=== PATIENT | female | born 1950 | race Caucasian/White ===

== ENCOUNTER → 2018-04-05 12:52 | Outpatient (POV) | payer MEDICARE, BC, SELFPAY | PROVIDERS: Family Provider Family Medicine; Visit Provider Dermatology | DX: Z00.00 Encounter for general adult medical examination without abnormal findings (principal) ==

== ENCOUNTER → 2018-04-20 15:32 | Outpatient (CLI) | payer MEDICARE, BC, SELFPAY ==
--- NOTE | 2018-04-20 15:36 | MR_ITS ---
MR lumbar spine wo con, MR 3-d myelogram/MRCP HISTORY: Low back pain with bilateral leg pain ITS.REASON: LOW BACK PAIN ORDERING PHYSICIAN: Emma Haynes PATIENT AGE: 67 years Comparison: None TECHNIQUE: Standard multiplanar multiecho sequences are performed without contrast. 3-D MIP and myelographic images are also rendered and reviewed FINDINGS: There is moderate lumbar scoliosis convex right measuring 32 degrees by the Kahn technique with a rotary component of the scoliosis. There is multilevel degenerative disc disease. T11-T12 and T12-L1 are unremarkable. L1-L2: Degenerative disc disease with mild concentric bulging disc with a small left paracentral and foraminal disc protrusion along with left-sided facet ligamentum flavum hypertrophy with resultant moderate to severe left-sided foraminal narrowing. There is moderate left lateral recess narrowing. L2-L3: Degenerative disc disease with bulging disc and prominent left sided marginal osteophytes. There is facet and ligamentum flavum hypertrophy. The bulging disc is eccentric toward the left with severe left-sided lateral recess and foraminal narrowing. L3-L4: Degenerative disc disease with disc desiccation. There is severe facet and ligamentum flavum hypertrophy with bulging disc. There is canal stenosis and severe bilateral lateral recess with moderate right and severe left foraminal narrowing. There is 5 mm right lateral translation of L3 on L4. Type I endplate changes are present at this level. There are endplate osteophytes as well L4-5: Concentric bulging disc with facet and ligamentum hypertrophy with severe right-sided foraminal narrowing and moderate right-sided lateral recess narrowing. There is transverse canal stenosis. The bulging disc is eccentric towards the right. L5-S1: Degenerative disc disease with moderate facet and ligamentum flavum hypertrophy with moderate right lateral recess and foraminal narrowing.. Incidental note made of bilateral renal cysts IMPRESSION: Abnormal MRI of the lumbar spine with severe spondylosis. There is moderate lumbar scoliosis convex right with multilevel degenerative disc disease, bulging disc, and facet and ligamentum flavum hypertrophy with canal stenosis foraminal narrowing and lateral recess narrowing. Please see above for detailed description at each level
== END ==
PROVIDERS: PCP Family Medicine; Visit Provider Nurse Practitioner Women's Health
DX: M54.5 Low back pain (principal)
CPT/HCPCS: 72148; 76376

== ENCOUNTER → 2018-05-13 08:28 | Outpatient (CLI) | payer MEDICARE, BC, SELFPAY ==
[2018-05-13 09:02] LABS: Creatinine,Urine Random 132 mg/dL (20-320)
[2018-05-13 10:00] LABS: Hemoglobin A1C 6.5 % (0.0-7.0)
[2018-05-13 10:27] LABS: Chol/HDL Ratio 3.5 (1-3.5); Cholesterol 189 mg/dL (140-200); HDL Cholesterol 54 mg/dL (29-89); LDL Cholesterol 103 mg/dL (0-130); Triglycerides 159 mg/dL (30-200); VLDL Cholesterol 32 mg/dL (0-40)
[2018-05-13 10:33] LABS: Alanine Aminotransferase 36 U/L (12-78); Albumin Level 3.5 gm/dL (3.4-5.0); Alkaline Phosphatase 87 U/L (46-116); Anion Gap 13.2 mEq/L (5-15); Aspartate Amino Transferase 17 U/L (15-37); Bilirubin,Total 0.4 mg/dL (0.2-1.0); Blood Urea Nitrogen 12 mg/dL (7-18); Calcium 8.8 mg/dL (8.5-10.1); Carbon Dioxide 30 mmol/L (21.0-32.0); Chloride 103 mmol/L (98-107); Creatinine,Serum 0.78 mg/dL (0.55-1.02); Estimated Glomerular Filt Rate 73 ml/min (>60); GFR (African American) 89 ML/MIN (>60); Globulin 3.5 gm/dl (1.3-3.2); Glucose 95 mg/dL (74-106); Potassium 4.2 mmoL/L (3.5-5.1); Sodium 142 mmol/L (136-145)
[2018-05-16 09:35] LABS: Microalbumin, Urine 13.7 ug/mL (Not Estab.)
== END ==
PROVIDERS: PCP Family Medicine; Visit Provider Family Medicine
DX: R73.01 Impaired fasting glucose (principal); E78.5 Hyperlipidemia, unspecified; I10 Essential (primary) hypertension
CPT/HCPCS: 36415; 80053; 80061; 82043; 82570; 83036; 84443

== ENCOUNTER → 2018-08-15 07:58 | Outpatient (POV) | payer MEDICARE, BC, SELFPAY | PROVIDERS: Visit Provider Specialist | DX: R20.0 Anesthesia of skin (principal); R20.2 Paresthesia of skin; G62.9 Polyneuropathy, unspecified | CPT/HCPCS: 95886; 95911 ==

== ENCOUNTER → 2018-08-23 09:03 | Outpatient (POV) | payer MEDICARE, BC, SELFPAY | PROVIDERS: Visit Provider Dermatology | DX: Z00.00 Encounter for general adult medical examination without abnormal findings (principal) ==

== ENCOUNTER 2018-09-23 14:00 | Outpatient (RCR) | payer MEDICARE, BC, SELFPAY | END 2018-09-23 14:05 | disposition home or self-care (01) | LOC: PT 14:00 | PROVIDERS: Visit Provider Neurological Surgery | DX: M96.1 Postlaminectomy syndrome, not elsewhere classified (principal) | CPT/HCPCS: 97010; 97014; 97110; 97163; G0283 ==

== ENCOUNTER → 2019-11-08 10:46 | Outpatient (CLI) | payer MEDICARE, BC, SELFPAY ==
--- NOTE | 2019-11-08 11:04 | CA_ITS ---
APPROVED REPORT EXAM: Comprehensive 2D, Doppler, and color-flow Echocardiogram Expense Analyst: Melanie Diallo RDCS Ht: 5 ft 7 in Wt: 236lbs BSA: 2.17 BP: 139/80 mmHg Indications: SOA 2D Dimensions LVOT 2.05 cm (M/F) 1.5-2.5 M-Mode Dimensions RVDd 2.17 cm (0.9-2.6) LVDd 4.62 cm (3.5-5.7) LVDs 3.17 cm (3.5-5.7) IVSd 0.76 cm (0.6-1.1) PWd 0.80 cm (0.6-1.1) EF (Teich) 59.30% FS 31.40% EDV (Teich) 98.30 mL ESV (Teich) 40.00 mL LV Diastology E/A Ratio 0.79 Mitral Valve MV A Velocity 61.00 (40-130 cm/s) Left Ventricle Left atrium is mildly enlarged, left ventricle is normal size, mild concentric left ventricular hypertrophy, visually estimated ejection fraction 55% with no regional wall motion abnormality, grade 1 diastolic dysfunction seen without tissue Doppler evidence of raise left atrial pressure. Right Ventricle Right atrium and right ventricular normal size and contractility. Aortic Valve Aortic valve is minimally thickened and fibrosed. There is no aortic stenosis or aortic insufficiency. Mitral Valve Mitral valve is grossly normal, there is mild mitral regurgitation. Tricuspid Valve Respite valve is grossly normal, there is mild tricuspid regurgitation, tricuspid regurgitation jet velocity is inadequate for calculation of the right ventricular systolic pressure. Pulmonic Valve Pulmonic valve is poorly visualized. Great Vessels Aortic root is normal size. Pericardium No significant pericardial effusion noted. Conclusion 1. Mildly enlarged left atrium, normal left ventricular size, mild concentric left ventricular hypertrophy, visually estimated ejection fraction 55% with no regional wall motion abnormality, grade 1 diastolic dysfunction seen without tissue Doppler evidence of raise left atrial pressure. 2. Mild mitral and tricuspid regurgitation. 3. No significant pericardial effusion noted. Electronically signed by : Brooks Laughlin, 11/09/2019 16:07:11
== END ==
PROVIDERS: Visit Provider Family Medicine
DX: R06.02 Shortness of breath (principal)
CPT/HCPCS: 93306

== ENCOUNTER → 2019-11-16 13:29 | Outpatient (CLI) | payer MEDICARE, BC, SELFPAY ==
[2019-11-16 14:26] LABS: Basophils % 0.1 % (0.1-2.0); Eosinophils # 0.1 K/mm3 (0.0-0.4); Eosinophils % 2.1 % (0.1-12.0); Hematocrit 39.8 % (37.0-47.0); Hemoglobin 13.3 g/dL (12.2-16.2); Lymphocytes # 1.6 K/mm3 (0.7-4.5); Lymphocytes % 29.2 % (10-50); Mean Corpuscular HGB Conc 33.4 g/dL (31.8-35.4); Mean Corpuscular Volume 86.9 fl (81-99); Mean Platelet Volume 7.6 fl (7.4-10.4); Monocytes # 0.2 K/mm3 (0.1-1.0); Monocytes % 4.5 % (1.7-9.3); Neutrophils # 3.5 K/mm3 (1.8-7.8); Platelet Count 159 K/mm3 (142-424); Red Blood Count 4.58 M/mm3 (4.20-5.40); Red Cell Distribution Width 14.3 % (11.5-17.5); White Blood Count 5.4 K/mm3 (4.8-10.8)
[2019-11-16 15:48] LABS: Alanine Aminotransferase 24 U/L (12-78); Albumin Level 4.3 g/dl (3.5-5.0); Albumin/Globulin Ratio 1.5 (1.1-1.8); Alkaline Phosphatase 71 U/L (38-126); Aspartate Amino Transferase 34 U/L (14-36); Bilirubin,Total 0.3 mg/dl (0.2-1.3); Blood Urea Nitrogen 16 mg/dl (7-17); Calcium 9.5 mg/dl (8.4-10.2); Carbon Dioxide 29 mmol/L (22.0-30.0); Chloride 103 mmol/L (98-107); Estimated Glomerular Filt Rate 83 ml/min (>60); GFR (African American) 100 ML/MIN (>60); Globulin 2.8 g/dL (1.3-3.2); Glucose 122 mg/dl (74-100); Sodium 138 mmol/L (136-145); Total Protein,Serum 7.1 g/dl (6.3-8.2)
== END ==
PROVIDERS: Visit Provider Internal Medicine Rheumatology
DX: M17.9 Osteoarthritis of knee, unspecified (principal); M19.049 Primary osteoarthritis, unspecified hand; Z79.1 Long term (current) use of non-steroidal anti-inflammatories (NSAID)
CPT/HCPCS: 36415; 80053; 85025

== ENCOUNTER → 2019-12-13 13:09 | Outpatient (CLI) | payer MEDICARE, BC, SELFPAY ==
[2019-12-13 14:42] LABS: Chloride 102 mmol/L (98-107); Potassium 4.6 mmoL/L (3.5-5.1); Sodium 138 mmol/L (136-145)
[2019-12-13 14:45] LABS: Anion Gap 11.6 mEq/L (5-15); Blood Urea Nitrogen 20 mg/dl (7-17); Carbon Dioxide 29 mmol/L (22.0-30.0); Estimated Glomerular Filt Rate 83 ml/min (>60); GFR (African American) 100 ML/MIN (>60)
[2019-12-13 14:46] LABS: Calcium 9.2 mg/dl (8.4-10.2); Glucose 91 mg/dl (74-100)
== END ==
PROVIDERS: Visit Provider Family Medicine
DX: I10 Essential (primary) hypertension (principal)
CPT/HCPCS: 36415; 80048

== ENCOUNTER → 2020-06-18 11:29 | Outpatient (CLI) | payer MEDICARE, BC, SELFPAY ==
--- NOTE | 2020-06-18 11:41 | XR_ITS ---
PROCEDURE: XR LUMBAR SPINE 6V W BENDING CLINICAL INDICATION: LUMBAR STENOSIS W/ NEUROGENIC CLAUDATION COMPARISON: No exams were available for comparison FINDINGS: There is severe lumbar scoliosis convex right measuring 30 degrees. Multilevel degenerative disc disease is present at L1-L2 L2-L3 L3-L4 L4-5 and L5-S1. Prominent osteophytes are present on the left at L2 and L3. No acute fracture or dislocation. No lytic or blastic change. No abnormal subluxation in flexion or extension. IMPRESSION: Severe dextro lumbar scoliosis with multilevel degenerative disc disease Dictated by: Francis Rutledge MD 06/18/2020 18:06 Francis Rutledge MD in [place] 06/18/2020 18:06
== END ==
PROVIDERS: PCP Neurological Surgery; Visit Provider Family Medicine
DX: M48.062 Spinal stenosis, lumbar region with neurogenic claudication (principal)
CPT/HCPCS: 72114

== ENCOUNTER 2020-08-09 09:00 | Outpatient (RCR) | payer MEDICARE, BC, SELFPAY | END 2020-08-09 09:05 | disposition home or self-care (01) | LOC: PT 09:00 | PROVIDERS: Visit Provider Physician Assistant | DX: M48.062 Spinal stenosis, lumbar region with neurogenic claudication (principal) | CPT/HCPCS: 97010; 97014; 97035; 97110; 97112; 97163; 97164; G0283 ==

== ENCOUNTER → 2020-09-12 13:33 | Outpatient (CLI) | payer MEDICARE, BC, SELFPAY ==
[2020-09-12 14:33] LABS: Basophils % 0.2 % (0.1-2.0); Eosinophils # 0.1 K/mm3 (0.0-0.4); Hematocrit 39.6 % (37.0-47.0); Hemoglobin 13.1 g/dL (12.2-16.2); Lymphocytes # 1.6 K/mm3 (0.7-4.5); Lymphocytes % 26.1 % (10-50); Mean Corpuscular Hemoglobin 28.5 pg (27.0-31.2); Mean Corpuscular Volume 86.4 fl (81-99); Mean Platelet Volume 7.6 fl (7.4-10.4); Monocytes # 0.4 K/mm3 (0.1-1.0); Monocytes % 5.8 % (1.7-9.3); Neutrophils # 4.1 K/mm3 (1.8-7.8); Neutrophils % 66.9 % (37.0-80.0); Platelet Count 183 K/mm3 (142-424); Red Blood Count 4.58 M/mm3 (4.20-5.40); White Blood Count 6.2 K/mm3 (4.8-10.8)
== END ==
PROVIDERS: PCP Family Medicine; Visit Provider Family Medicine
DX: Z20.822 Contact with and (suspected) exposure to COVID-19 (principal); I10 Essential (primary) hypertension
CPT/HCPCS: 36415; 85025; U0003

== ENCOUNTER 2020-12-30 09:44 | Emergency (ER) | payer MEDICARE, BC, SELFPAY ==
[2020-12-30 09:45] VITALS: BP 144/77; PULSE 89; RESP 20; TEMP 36.6; O2SAT 96; BMI 38.9
--- NOTE | 2020-12-30 09:46 | XR_ITS ---
PROCEDURE: XR SHOULDER LT MIN 2V CLINICAL INDICATION: PAIN COMPARISON: No exams were available for comparison FINDINGS: No acute fractures or dislocations. Bone density is normal. Degenerative changes of the glenohumeral and acromioclavicular joints. No periarticular calcification. Postsurgical changes with surgical clips in the left axilla. Soft tissues are otherwise unremarkable. Calcified lymph nodes noted in the hilum. Visualized left hemithorax is otherwise unremarkable. IMPRESSION: No acute findings. Degenerative changes noted. Dictated by: Rina Urbina 12/30/2020 10:20 Rina Urbina in [facility] 12/30/2020 10:20
--- NOTE | 2020-12-30 10:13 | HMH.EDUTC ---
[facility] [place] Disposition Clinical Impression: Muscle strain Disposition: Home, Self-Care Condition on Discharge: Good Instructions: Muscle Strain, DI for Shoulder Pain Additional Instructions: *Ibuprofen dasha 6 hours with meal as needed for pain/inflammation *Not additional anti-inflammatory like motrin, aleve, advil with the above amount of ibuprofen. You can still take Tylenol every 4 hours as needed if you need something else for pain *Ice 20 minutes every 2 hours for the first 48 hours after the initial injury followed by moist heat every 20 minutes 3-4 times a day to affected area *Elevate when resting *Keep this area active, no movement leads to more stiffness, However take it easy and avoid heavy lifting pushing or pulling *Follow up with you family doctor if no improvement for further treatment Referrals: Jose Manuel Garrido MD [Primary Care Provider] - As needed Time of Disposition: 10:36 Medical Decision Making - Karl Inquiry Pt receiving controlled substance: No Karl was queried for this patient: No Vital Signs: 12/30/20 09:45 12/30/20 10:29 Temperature 97.8 F 97.8 F Temperature Source Oral Pulse Rate 89 Pulse Rate [Right Brachial] 89 Respiratory Rate 20 20 Blood Pressure 144/77 H Blood Pressure [Right Arm] 144/77 H Blood Pressure Mean [Right Arm] 99 Blood Pressure Source [Right Arm] Automatic Cuff Blood Pressure Position [Right Arm] Sitting 02 Sat by Pulse Oximetry 96 Oxygen Delivery Method Room Air - Radiology Data #1 Image(s): Shoulder Image Reviewed: Yes I have reviewed radiologist's interpretation No acute findings. Degenerative changes noted. [facility] [place] HPI - General Stated complaint: ao 9 injury to lt shoulder Time Seen by Provider: 12/30/20 10:13 Mode of Arrival: Ambulatory Source of Information: Patient Limitations: No Limitations Description of Symptoms (Recalled from Triage Doc. by RN): PATIENT C/O PAIN TO LEFT SHOULDER AFTER CARRYING AROUND A METAL SHELF 10 DAYS AGO HEENT Symptoms (Recalled from RN notes): No Resp Symptoms (Recalled from RN notes): No Skin Symptoms (Recalled from RN notes): No MS Symptoms (Recalled from RN notes): Yes Functional Status (Recalled from RN notes): WNL - History of Present Illness Provider Complaint: Patient states that she carried a metal shelf from her basement to her building about 10 days ago and has been having pain in her left shoulder when she moves it or tries to raise it State that she thought it would be better by now but it is not so she came in to get it checked States that when she holds the arm still she has no pain but with movement has pain in the shoulder down into her upper arm and thinks she messed it up - Related Data Home Medications Medication Instructions Recorded Confirmed atenolol 25 mg tablet 25 mg PO DAILY 90 Days #90 tab 07/04/18 12/30/20 lansoprazole 30 mg capsule,delayed 30 mg PO DAILY 90 Days #90 cap 07/04/18 12/30/20 release montelukast 10 mg tablet 10 mg PO DAILY 30 Days #30 tab 07/04/18 12/30/20 sertraline 100 mg tablet 100 mg PO DAILY 90 Days #180 tab 07/04/18 12/30/20 simvastatin 20 mg tablet 20 mg PO HS 90 Days #90 tab 07/04/18 12/30/20 Gabapentin [Neurontin 800mg Tab] 800 mg PO TID 12/30/20 12/30/20 Lisinopril/Hydrochlorothiazide 1 tab PO DAILY 12/30/20 12/30/20 [Zestoretic 10/12.5mg tablet] Allergies Allergy/AdvReac Type Severity Reaction Status Date / Time No Known Drug Allergies Allergy Unknown Verified 12/30/20 10:09 - Worker's Comp Is this a Worker's Comp case?: No [facility] History - Hepatitis A Screen Drug use history?: No High risk sexual behaviors?: No History of sexually transmitted infection?: No Currently employed?: No Childcare worker?: No Do you have indoor plumbing?: Yes Do you have electricity?: Yes Attestation statement:: This patient has been screened for Hepatitis A risk factors. I have reviewed the patient's past medical history: Yes Medical History: Cayla
[2020-12-30 10:29] VITALS: BP 144/77; PULSE 89; RESP 20; TEMP 36.6; O2SAT 96
== END 2020-12-30 10:45 | disposition home or self-care (01) ==
PROVIDERS: Emergency Provider Nurse Practitioner; PCP Family Medicine
DX: S43.402A Unspecified sprain of left shoulder joint, initial encounter (principal); X50.0XXA Overexertion from strenuous movement or load, initial encounter; Y92.019 Unspecified place in single-family (private) house as the place of occurrence of the external cause
CPT/HCPCS: G0463; 73030; 99202

== ENCOUNTER → 2021-05-15 08:17 | Outpatient (CLI) | payer MEDICARE, BC, SELFPAY ==
[2021-05-15 09:08] LABS: Basophils % 0.5 % (0.1-2.0); Eosinophils # 0.1 K/mm3 (0.0-0.4); Eosinophils % 1.9 % (0.1-12.0); Hematocrit 40.5 % (37.0-47.0); Hemoglobin 13.6 g/dL (12.2-16.2); Lymphocytes # 1.6 K/mm3 (0.7-4.5); Mean Corpuscular HGB Conc 33.6 g/dL (31.8-35.4); Mean Corpuscular Hemoglobin 29.2 pg (27.0-31.2); Mean Corpuscular Volume 86.8 fl (81-99); Mean Platelet Volume 7.9 fl (7.4-10.4); Monocytes # 0.3 K/mm3 (0.1-1.0); Monocytes % 5.4 % (1.7-9.3); Neutrophils # 3.8 K/mm3 (1.8-7.8); Neutrophils % 65.2 % (37.0-80.0); Platelet Count 205 K/mm3 (142-424); Red Blood Count 4.67 M/mm3 (4.20-5.40); Red Cell Distribution Width 13.9 % (11.5-17.5); White Blood Count 5.9 K/mm3 (4.8-10.8)
[2021-05-15 09:51] LABS: Alanine Aminotransferase 28 U/L (12-78); Albumin Level 4.1 g/dl (3.5-5.0); Albumin/Globulin Ratio 1.6 (1.1-1.8); Alkaline Phosphatase 70 U/L (38-126); Anion Gap 7.4 mEq/L (5-15); Aspartate Amino Transferase 47 U/L (14-36); Bilirubin,Total 0.2 mg/dl (0.2-1.3); Blood Urea Nitrogen 18 mg/dl (7-17); Calcium 9.8 mg/dl (8.4-10.2); Carbon Dioxide 35 mmol/L (22.0-30.0); Chloride 100 mmol/L (98-107); Estimated Glomerular Filt Rate 62 ml/min (>60); GFR (African American) 75 ML/MIN (>60); Globulin 2.6 g/dL (1.3-3.2); Glucose 170 mg/dl (74-100); Potassium 4.4 mmoL/L (3.5-5.1); Sodium 138 mmol/L (136-145); Total Protein,Serum 6.7 g/dl (6.3-8.2)
== END ==
PROVIDERS: Visit Provider Nurse Practitioner Women's Health
DX: G56.00 Carpal tunnel syndrome, unspecified upper limb (principal); M17.9 Osteoarthritis of knee, unspecified; M19.049 Primary osteoarthritis, unspecified hand; M54.9 Dorsalgia, unspecified; M70.60 Trochanteric bursitis, unspecified hip
CPT/HCPCS: 36415; 80053; 85025

== ENCOUNTER 2021-10-06 08:00 | Outpatient (RCR) | payer MEDICARE, BC, SELFPAY ==
--- NOTE | 2021-09-24 09:17 | HMH.PTOPEV ---
PT Outpatient Evaluation Rehab PT Outpatient Evaluation Start: 09/24/21 08:01 Freq: Status: Active Protocol: Document 09/24/21 08:02 VEEROCÍO (Rec: 09/24/21 09:17 CAMERON [id number]) Electronically Signed By Christopher Venegas PT 09/24/21 08:02 Outpatient Therapy Subjective History Subjective History This is the initial Physical Therapy vestibular evaluation for Cynthia Harding. Pt is a 71 y/o female referred to PT for c/o dizziness . Pt reports insidious onset of dizziness ~ 3 weeks ago. Pt reports the worst time is getting out of bed in the morning, she states that sitting up from supine causes room spinning symptoms. Pt did state that recently while lying in bed she rolled onto her right and had the same symptoms. Pt reports always in the morning, before she takes her medicine. Pt does report she has had ringing in my ears her whole life. Chief Complaint Other Symptom Type Other Symptoms Relieved By Rest/Positioning Symptoms Aggravated By Prone,Sitting Prior Functional Limitations None Current Functional Limitations Driving,Sleeping,Recreation Activity Symptom Description Intermittent Balance Eval Subjective Hx of Complaint Comment dizziness with supine/sit Chief Complaint vertigo Yes Did you feel dizzy, unsteady or faint? Yes Activity at onset transfers Prior Functional Limitations Prior Functional [place] Level none Current Functional Limitations Comment transfers Hx of Falls Hx Falls No Gait/Posture Asssessment General Gait Observation No Deviations/Normal Assistive Devices None / NA Level of Transfer Assist Independent Nystagmus Nystagmus Presence Positional Nystagmus Description Right Direction,Geotropic, Latency - Immediate Outpatient Therapy Assessment Impairments Problems/Impairmments Impaired Sitting,Impaired Recreational Activities, Impaired Work Activities, Impaired Balance,Impaired Self Care/Self Management
== END 2021-10-06 08:05 | disposition home or self-care (01) ==
LOC: PT 08:00
PROVIDERS: PCP Family Medicine; Visit Provider Family Medicine
DX: H81.90 Unspecified disorder of vestibular function, unspecified ear (principal)
CPT/HCPCS: 97110; 97163

== ENCOUNTER 2021-11-18 10:00 | Outpatient (RCR) | payer MEDICARE, BC, SELFPAY | END 2021-11-18 10:05 | disposition home or self-care (01) | LOC: PT 10:00 | PROVIDERS: PCP Family Medicine; Visit Provider Physician Assistant Surgical | DX: M54.50 Low back pain, unspecified (principal); G89.29 Other chronic pain; M51.36 Other intervertebral disc degeneration, lumbar region; M41.125 Adolescent idiopathic scoliosis, thoracolumbar region | CPT/HCPCS: 97010; 97014; 97110; 97163; G0283 ==

== ENCOUNTER 2021-12-14 11:17 | Emergency (ER) | payer MEDICARE, BC, SELFPAY ==
--- NOTE | 2021-12-14 11:51 | HMH.EDUTC ---
[facility] [place] Disposition Clinical Impression: COVID-19, Viral syndrome Asthma Qualifiers: Asthma severity: unspecified severity Asthma persistence: unspecified Asthma complication type: unspecified Qualified Code(s): J45.909 - Unspecified asthma, uncomplicated Disposition: Home, Self-Care Condition on Discharge: Good Instructions: DI for Asthma -- Adult, DI for COVID-19 (Suspected or Confirmed ), Preventing the Spread of Coronavirus Discharge Instructions Additional Instructions: Drink plenty of fluids. Take tylenol or ibuprofen for pain or fever. Take the medications as directed. Follow up with your regular doctor. GO TO THE ER FOR ANY WORSENING SYMPTOMS Quarantine until you know the results of your covid-19 test. Notify your school or workplace of your results and follow their instructions regarding return to work/school. The cough medication (promethazine dm) will make you drowsy, so don't drive or operate heavy machinery after taking it. Prescriptions: Promethazine/Dextromethorphan [Promethazine-Dm Syrup] 5 ml PO Q6HP PRN #240 ml PRN Reason: Cough Transmission Status: Received by [facility] Benzonatate [Benzonatate 100mg cap] 100 mg PO TIDP PRN #30 cap PRN Reason: Cough Transmission Status: Received by [facility] methylPREDNISolone [Medrol] 4 mg PO DIRECTED 6 Days #21 packet Transmission Status: Received by [facility] Azithromycin [Z-Javi 250mg Tab*] 250 mg PO UD DOSE PK #6 tab Transmission Status: Received by [facility] Referrals: Jose Manuel Garrido MD [Primary Care Provider] - Time of Disposition: 12:10 Medical Decision Making - Medical Records Medical records reviewed: No: I reviewed the patient's medical records. - Karl Inquiry Pt receiving controlled substance: No Vital Signs: 12/14/21 12:00 12/14/21 12:12 Temperature 99.1 F 99.1 F Temperature Source Oral Pulse Rate 85 Pulse Rate [Left] 85 Respiratory Rate 16 16 Blood Pressure 137/77 Blood Pressure [Right Arm] 137/77 Blood Pressure Mean [Right Arm] 97 02 Sat by Pulse Oximetry 95 [facility] [place] [place] HPI - General Stated complaint: covid test Time Seen by Provider: 12/14/21 11:51 - History of Present Illness Provider Complaint: She is here to be tested for covid-19. She started feeling bad about 4 days ago. She denies any shortness of breath, but she does have a dry cough - Related Data Home Medications Medication Instructions Recorded Confirmed atenolol 25 mg tablet 25 mg PO DAILY 90 Days #90 tab 07/04/18 12/30/20 lansoprazole 30 mg capsule,delayed 30 mg PO DAILY 90 Days #90 cap 07/04/18 12/30/20 release montelukast 10 mg tablet 10 mg PO DAILY 30 Days #30 tab 07/04/18 12/30/20 sertraline 100 mg tablet 100 mg PO DAILY 90 Days #180 tab 07/04/18 12/30/20 simvastatin 20 mg tablet 20 mg PO HS 90 Days #90 tab 07/04/18 12/30/20 Gabapentin [Neurontin 800mg Tab] 800 mg PO TID 12/30/20 12/30/20 Lisinopril/Hydrochlorothiazide 1 tab PO DAILY 12/30/20 12/30/20 [Zestoretic 10/12.5mg tablet] Previous Rx's Medication Instructions Recorded Azithromycin [Z-Javi 250mg Tab*] 250 mg PO UD DOSE PK #6 tab 12/14/21 Benzonatate [Benzonatate 100mg 100 mg PO TIDP PRN #30 cap 12/14/21 cap] Promethazine/Dextromethorphan 5 ml PO Q6HP PRN #240 ml 12/14/21 [Promethazine-Dm Syrup] methylPREDNISolone [Medrol] 4 mg PO DIRECTED 6 Days #21 12/14/21 packet Allergies Allergy/AdvReac Type Severity Reaction Status Date / Time No Known Drug Allergies Allergy Unknown Verified 12/14/21 12:03 [facility] History - Hepatitis A Screen Attestation statement:: This patient has been screened for Hepatitis A risk factors. I have reviewed the patient's past medical history: Yes Medical History: Reports:: Anxiety, Cancer (Right and Left Breast ), Depression, Gastroesophageal Reflux Disease(GERD), Hyperlipidemia, Hypertension, Pulmonary Embolism (15 Years ago ) Other Medical History: Reports: A
[2021-12-14 12:00] VITALS: BP 137/77; PULSE 85; RESP 16; TEMP 37.3; O2SAT 95; BMI 37.4
[2021-12-14 12:12] VITALS: BP 137/77; PULSE 85; RESP 16; TEMP 37.3
== END 2021-12-14 12:12 | disposition home or self-care (01) ==
PROVIDERS: Emergency Provider Nurse Practitioner Family; PCP Family Medicine
DX: U07.1 COVID-19 (principal); J45.909 Unspecified asthma, uncomplicated; R05.9 Cough, unspecified
CPT/HCPCS: 99212; C9803; G0463; U0003; U0005

== ENCOUNTER 2022-04-22 22:45 | Emergency (ER) | payer MEDICARE, BC, SELFPAY ==
[2022-04-22 22:46] VITALS: BP 145/67; PULSE 75; RESP 16; TEMP 37.2; O2SAT 95; BMI 33.8
[2022-04-22 23:24] LABS: Basophils # 0.1 K/mm3 (0-0.2); Basophils % 0.6 % (0.1-2.0); Eosinophils # 0.1 K/mm3 (0.0-0.4); Eosinophils % 0.6 % (0.1-12.0); Hematocrit 47.1 % (37.0-47.0); Hemoglobin 15.3 g/dL (12.2-16.2); Lymphocytes # 1.2 K/mm3 (0.7-4.5); Lymphocytes % 8.7 % (10-50); Mean Corpuscular HGB Conc 32.5 g/dL (31.8-35.4); Mean Corpuscular Hemoglobin 28.7 pg (27.0-31.2); Mean Corpuscular Volume 88.3 fl (81-99); Mean Platelet Volume 8.1 fl (7.4-10.4); Monocytes # 0.3 K/mm3 (0.1-1.0); Monocytes % 2.1 % (1.7-9.3); Neutrophils # 11.9 K/mm3 (1.8-7.8); Neutrophils % 88.1 % (37.0-80.0); Platelet Count 208 K/mm3 (142-424); Red Blood Count 5.33 M/mm3 (4.20-5.40); Red Cell Distribution Width 13.6 % (11.5-17.5); White Blood Count 13.6 K/mm3 (4.8-10.8)
--- NOTE | 2022-04-22 23:24 | HMH.EDABDPAI ---
Discharge Plan Disposition Patient Disposition: Home, Self-Care Chief Complaint: Abdominal Pain Prescriptions Prescriptions: No Action atenolol 25 mg tablet 25 mg PO DAILY 90 Days Qty: 90 simvastatin 20 mg tablet 20 mg PO HS 90 Days Qty: 90 sertraline 100 mg tablet 100 mg PO DAILY 90 Days Qty: 180 lansoprazole 30 mg capsule,delayed release(DR/EC) 30 mg PO DAILY 90 Days Qty: 90 montelukast 10 mg tablet 10 mg PO DAILY 30 Days Qty: 30 lisinopril-hydrochlorothiazide 1 EACH tablet 1 tab PO DAILY gabapentin 800 MG tablet 800 mg PO TID promethazine-DM 120 ML syrup 5 ml PO Q6HP PRN (Reason: Cough) Qty: 240 0RF azithromycin 250 MG tablet 250 mg PO UD DOSE PK Qty: 6 0RF Rx Instructions: Take two (2) tablets today, then one (1) tablet days #2 thru #5 benzonatate 100 MG capsule 100 mg PO TIDP PRN (Reason: Cough) Qty: 30 0RF methylprednisolone 4 MG tablets,dose pack 4 mg PO DIRECTED 6 Days Qty: 21 0RF Referrals Follow up/Referrals: Jose Manuel aGrrido MD [Primary Care Provider] - See instructions Clinical Impressions Clinical Impression: Abdominal pain Instructions Patient Instructions: DI for Acute Abdominal Pain Discharge ED Provider: Thai Cuello Abdominal Pain HPI General Chief Complaint: Abdominal Pain Stated Complaint: sharp abdominal pain; vomiting Time Seen by Provider: 04/22/22 23:24 Mode of Arrival: Ambulatory Source of Information: Patient and Medical Record Limitations: No Limitations Description of Symptoms (Recalled from ER Triage Doc. by RN): pt states she has sharp abdominal pain that stated a few hours prior to arrival the pt states that she has a sharp pain in the middle of her abdomen that runs all across. the abdomen is hard and tender to the touch. the pt states that she had 2 bms today both solid with no relief. the pt has a hx of strangulated hernia. pt stated that she also has a spinal stimulator pt also states she has voomited 2 times in the past 2 hours. pt is requesting pain medicine History of Present Illness HPI narrative: acute onset of abd pain this afternoon - hx of spinal stimulator - hx of prev abd surg MD complaint: abdominal pain Onset (ago): hour(s) Consistency: intermittent Location: periumbilical Severity: moderate Quality: cramping Radiation: epigastric Associated symptoms: denies other symptoms Related Data Home Medications Medication Instructions Recorded Confirmed atenolol 25 mg tablet 25 mg PO DAILY Hypertension 90 07/04/18 12/30/20 days #90 tabs lansoprazole 30 mg capsule,delayed 30 mg PO DAILY Cholesterol 90 days 07/04/18 12/30/20 release #90 caps montelukast 10 mg tablet 10 mg PO DAILY Allergy symptoms 30 07/04/18 12/30/20 days #30 tabs sertraline 100 mg tablet 100 mg PO DAILY Depression 90 days 07/04/18 12/30/20 #180 tabs simvastatin 20 mg tablet 20 mg PO HS Cholesterol 90 days 07/04/18 12/30/20 #90 tabs gabapentin 800 mg tablet 800 mg PO TID NEUROPATHY 12/30/20 12/30/20 lisinopril 10 1 tab PO DAILY Hypertension 12/30/20 12/30/20 mg-hydrochlorothiazide 12.5 mg tablet Previous Rx's Medication Instructions Recorded azithromycin 250 mg tablet 250 mg PO UD DOSE PK #6 tabs 12/14/21 benzonatate 100 mg capsule 100 mg PO TIDP PRN Cough #30 caps 12/14/21 methylprednisolone 4 mg tablets in 4 mg PO DIRECTED 6 days #21 12/14/21 a dose pack packets promethazine-DM 6.25 mg-15 mg/5 mL 5 ml PO Q6HP PRN Cough #240 mL 12/14/21 oral syrup Allergies Allergy/AdvReac Type Severity Reaction Status Date / Time No Known Drug Allergies Allergy Unknown Verified 12/14/21 12:03 PFSH PFSH Social History Smoking Status: Former smoker alcohol intake: never current occupational status: other Travel in the last 8 weeks: None ROS Obtained: Yes All systems reviewed & no additional complaints except as documented Physical Exam General General appearance: [email or web address]
[2022-04-22 23:27] LABS: Chloride 95 mmol/L (98-107); MANUAL DIFFERENTIAL MANUAL DIFFERENTIAL (MANUAL DIFF); Potassium 3.4 mmoL/L (3.5-5.1); Sodium 142 mmol/L (136-145)
[2022-04-22 23:30] LABS: Alanine Aminotransferase 20 U/L (12-78); Alkaline Phosphatase 115 U/L (38-126); Amylase 71 U/L (30-110); Anion Gap 14.4 mEq/L (5-15); Aspartate Amino Transferase 34 U/L (14-36); Bilirubin,Total 0.5 mg/dl (0.2-1.3); Blood Urea Nitrogen 14 mg/dl (7-17); Carbon Dioxide 36 mmol/L (22.0-30.0); Creatinine Clearance Estimated 79 mL/min (50-200); Estimated Glomerular Filt Rate 82 ml/min (>60); GFR (African American) 100 ML/MIN (>60); Glucose 178 mg/dl (74-100); Lactic Acid 1.6 mmol/L (0.7-2.1)
[2022-04-22 23:31] LABS: Albumin Level 4.6 g/dl (3.5-5.0); Albumin/Globulin Ratio 1.6 (1.1-1.8); Globulin 2.9 g/dL (1.3-3.2); Lipase 179 U/L (23-300); Total Protein,Serum 7.5 g/dl (6.3-8.2)
--- NOTE | 2022-04-22 23:36 | CT_ITS ---
PROCEDURE INFORMATION: Exam: CT Abdomen And Pelvis With Contrast Exam date and time: 04/23/2022 12:48 AM Age: 71 years old Clinical indication: Abdominal pain; Prior surgery; Surgery type: Hernia repair, appendectomy, hysterectomy TECHNIQUE: Imaging protocol: Computed tomography of the abdomen and pelvis with contrast. Radiation optimization: All CT scans at this facility use at least one of these dose optimization techniques: automated exposure control; mA and/or kV adjustment per patient size (includes targeted exams where dose is matched to clinical indication); or iterative reconstruction. Contrast material: ISOVUE; Contrast volume: 75 ml; Contrast route: IV; COMPARISON: SPLUMBWO MR lumbar spine wo con 04/20/2018 3:44 PM FINDINGS: Tubes, catheters and devices: Dorsal column stimulator is evident. Lungs: There is a 3 mm right middle lobe nodule image 4 series 3. Liver: Mild hepatic steatosis is evident. Hepatic granulomata are noted. Gallbladder and bile ducts: Cholelithiasis is present without findings of cholecystitis. No gallbladder wall thickening or pericholecystic fluid collection. Pancreas: Normal. No ductal dilation. Spleen: Splenic granulomata are noted. Adrenal glands: Normal. No mass. Kidneys and ureters: There are 2 right intrarenal calculi. One in the upper pole measuring 2 x 7 mm and the other in the lower pole measuring 3 mm. There is no hydronephrosis. There are 6 mm and 17 mm right cortical hypodensities. The largest is compatible with a cyst. The smaller is too small to characterize but likely representing a cyst as well. Left kidney is normal. Stomach and bowel: Patent small bowel anastomosis is noted within the left mid abdomen. There is mild soft tissue stranding of the mesenteric fat medial to the anastomosis which may represent mild inflammation. There are nondilated fluid-filled loops of small bowel present. No obstruction. Appendix: No evidence of appendicitis. Intraperitoneal space: See Stomach and bowel finding. Vasculature: There is mild calcific atherosclerotic disease. There is no abdominal aortic aneurysm.The uterus is absent. Lymph nodes: Unremarkable. No enlarged lymph nodes. Urinary bladder: Unremarkable as visualized. Reproductive: See Vasculature finding. Bones/joints: Significant scoliosis and degenerative change of the lumbar spine. Soft tissues: Unremarkable. IMPRESSION: 1. Stranding of the mesenteric fat medial to small bowel anastomosis in the left mid abdomen. The anastomosis is patent. There are fluid-filled loops of small bowel present without dilation. The findings may represent enteritis. 2. Nonobstructing right intrarenal calculi and 2 small right renal hypodensities most consistent with cysts. 3. There is a 3 mm right middle lobe nodule image 4 series 3. 4. For patients at low risk (minimal or absent history of smoking and of other known risk factors), no routine follow-up is indicated. For patients at high risk (history of smoking or of other known risk factors), consider optional CT Chest at 12 months. (Reference: Winston) 5. Other findings as detailed COMMENTS: Consistent with the [employer]'s Incidental Findings Committee white paper (J Am Yoni Radiol 2018): Any incidental renal lesion less than 1 cm or classified as too small to characterize, or any incidental cystic renal lesion characterized as simple-appearing, is likely benign. No follow-up imaging is recommended for these lesions per consensus recommendations based on imaging criteria. REFERENCES: [place] Kruger, et al. Guidelines for Management of Incidental Pulmonary Nodules Detected on
[2022-04-22 23:50] LABS: Erythrocyte Sedimentation Rate 12 mm/hr (0-30)
[2022-04-23 00:24] LABS: Anisocytosis 1+; Hypochromasia 1+; Lymphocytes % 12 % (10-50); Monocytes % 2 % (2-9); Neutrophils % 86 % (42-76); Platelet Estimate Normal; Total Cells Counted 100
[2022-04-23 01:04] VITALS: BP 140/62; PULSE 72; RESP 18; TEMP 36.6; O2SAT 98
== END 2022-04-23 01:24 | disposition home or self-care (01) ==
PROVIDERS: Emergency Provider Emergency Medicine; PCP Family Medicine
DX: R10.9 Unspecified abdominal pain (principal); R11.10 Vomiting, unspecified
CPT/HCPCS: 74177; 80053; 82150; 83605; 83690; 85007; 85025; 85651; 86140; 96365; 96375; 99284; Q9967

== ENCOUNTER 2023-02-12 09:18 | Emergency (ER) | payer MEDICARE, BC, SELFPAY ==
[2023-02-12 09:18] VITALS: BP 138/64; PULSE 94; RESP 18; TEMP 36.3; O2SAT 95; BMI 35.2
--- NOTE | 2023-02-12 09:45 | EXP.UTC ---
Discharge Plan Disposition Patient Disposition: Home, Self-Care Condition: Good Prescriptions Prescriptions: New amoxicillin-pot clavulanate 875-125 mg Tablet 1 tab PO Q12H Qty: 14 0RF benzonatate 100 mg capsule 100 mg PO TID PRN (Reason: cough) Qty: 30 0RF methylprednisolone [Medrol (Javi)] 4 mg tablets,dose pack See Rx Instructions .Route .COMPLEX 6 Days Qty: 21 0RF Rx Instructions: taper pack; No Action atenolol 25 mg tablet 25 mg PO DAILY 90 Days Qty: 90 simvastatin 20 mg tablet 20 mg PO HS 90 Days Qty: 90 sertraline 100 mg tablet 100 mg PO DAILY 90 Days Qty: 180 lansoprazole 30 mg capsule,delayed release(DR/EC) 30 mg PO DAILY 90 Days Qty: 90 montelukast 10 mg tablet 10 mg PO DAILY 30 Days Qty: 30 lisinopril-hydrochlorothiazide 1 EACH tablet 1 tab PO DAILY gabapentin 800 MG tablet 800 mg PO TID promethazine-DM 120 ML syrup 5 ml PO Q6HP PRN (Reason: Cough) Qty: 240 0RF azithromycin 250 MG tablet 250 mg PO UD DOSE PK Qty: 6 0RF Rx Instructions: Take two (2) tablets today, then one (1) tablet days #2 thru #5 benzonatate 100 MG capsule 100 mg PO TIDP PRN (Reason: Cough) Qty: 30 0RF methylprednisolone 4 MG tablets,dose pack 4 mg PO DIRECTED 6 Days Qty: 21 0RF Referrals Follow up/Referrals: Jose Manuel Garrido MD [Primary Care Provider] - See instructions Activity Restrictions/Add. Instructions Additional Instructions/Restrictions: *Monitor Temp, Over the counter Motrin or Tylenol as directed/as needed Tylenol every 4 hours and Motrin every 6 hours (as long as your family doctor has told you that you can take it) for fever or pain. and straight to ER if unable to lower temp less than 101.0 after medication given *Warm salt water gargles may help to soothe the throat *Throat Lozenges? *Warm fluids like tea with honey may help to soothe the throat? *Sleep elevated *Humidifier/Vaporizer *Flonase 2 sprays in each nostril daily but be aware that it may take 2-3 days before you notice improvement *Bromfed may cause drowsiness. Know how it effects you (your child) before driving, caring for small child, or sending your child to school. Not other antihistamines/allergy medications while taking bromfed Your throat swab was sent for culture. Those results are typically sent to your primary care. Be sure to follow up in 2-3 days with your family doctor/primary care physician if no improvement so they can review those result and treat if necessary. If you don?t have a primary care doctor, I recommend you get one but in the mean time, you will have to return to a walk in clinic Follow up IMMEDIATELY for new or worsening symptoms or no Noticeable improvement over the next 48-72 hours. 911 for difficulty breathing or swallowing You were tested for today for COVID19 your test result should be back in the next 24-48 hours, you may check your results on the [facility] Health Portal they will be on there when they are complete Clinical Impressions Clinical Impression: Sinusitis Qualifiers: Sinusitis location: unspecified location Chronicity: unspecified Qualified Code(s): J32.9 - Chronic sinusitis, unspecified Instructions Patient Instructions: Sore Throat, DI for Sinusitis Discharge ED [place] Coty Zaragoza [facility] [place] General Stated complaint: chest congestion, cough, runny nose Mode of Arrival: Ambulatory Source of Information: Patient Limitations: No Limitations Time Seen by Provider: 02/12/23 09:45 Description of Symptoms (Recalled from Triage Doc. by RN): Patient reports shortness of air, face pain, cough and nasal congestion. HEENT Symptoms (Recalled from RN notes): Yes Resp Symptoms (Recalled from RN notes): No Skin Symptoms (Recalled from RN notes): No MS Symptoms (Recalled from RN notes): No Functional Status (Recalled from RN notes): wnl History of Present Illness Provider Mo
[2023-02-12 09:58] VITALS: BP 138/64; PULSE 94; RESP 18; TEMP 36.3; O2SAT 95
== END 2023-02-12 09:59 | disposition home or self-care (01) ==
PROVIDERS: Emergency Provider Nurse Practitioner; PCP Family Medicine
DX: J01.90 Acute sinusitis, unspecified (principal)
CPT/HCPCS: 99212; 99214; G0463

== ENCOUNTER 2023-02-22 10:10 | Emergency (ER) | payer MEDICARE, BC, SELFPAY ==
[2023-02-22 11:25] VITALS: BP 118/70; PULSE 86; RESP 19; TEMP 36.9; O2SAT 98; BMI 35.5
--- NOTE | 2023-02-22 11:37 | EXP.UTC ---
Discharge Plan Disposition Patient Disposition: Home, Self-Care Condition: Good Prescriptions Prescriptions: New guaifenesin [Mucinex] 600 mg tablet extended release 12hr 600 - 1,200 mg PO BID PRN (Reason: cough/congestion) Qty: 20 0RF prednisone 10 mg tablet 10 mg PO BID 5 Days Qty: 10 0RF azithromycin [Zithromax Z-Javi] 250 mg tablet See Rx Instructions .ROUTE .COMPLEX 5 Days Qty: 6 0RF Rx Instructions: For 250 mg dose pack: take 500 mg today (day 1), then 250 mg for 4 days (days 2-5) No Action atenolol 25 mg tablet 25 mg PO DAILY 90 Days Qty: 90 simvastatin 20 mg tablet 20 mg PO HS 90 Days Qty: 90 sertraline 100 mg tablet 100 mg PO DAILY 90 Days Qty: 180 lansoprazole 30 mg capsule,delayed release(DR/EC) 30 mg PO DAILY 90 Days Qty: 90 montelukast 10 mg tablet 10 mg PO DAILY 30 Days Qty: 30 lisinopril-hydrochlorothiazide 1 EACH tablet 1 tab PO DAILY gabapentin 800 MG tablet 800 mg PO TID promethazine-DM 120 ML syrup 5 ml PO Q6HP PRN (Reason: Cough) Qty: 240 0RF azithromycin 250 MG tablet 250 mg PO UD DOSE PK Qty: 6 0RF Rx Instructions: Take two (2) tablets today, then one (1) tablet days #2 thru #5 benzonatate 100 MG capsule 100 mg PO TIDP PRN (Reason: Cough) Qty: 30 0RF methylprednisolone 4 MG tablets,dose pack 4 mg PO DIRECTED 6 Days Qty: 21 0RF amoxicillin-pot clavulanate 875-125 mg Tablet 1 tab PO Q12H Qty: 14 0RF benzonatate 100 mg capsule 100 mg PO TID PRN (Reason: cough) Qty: 30 0RF methylprednisolone [Medrol (Javi)] 4 mg tablets,dose pack See Rx Instructions .Route .COMPLEX 6 Days Qty: 21 0RF Rx Instructions: taper pack; Referrals Follow up/Referrals: Jose Manuel Garrido MD [Primary Care Provider] - See instructions Activity Restrictions/Add. Instructions Additional Instructions/Restrictions: Start antibiotic today. Be sure to complete entire prescription even if feeling better Monitor temp. Tylenol every 4 hours as needed and / or ibuprofen every 6 hours as needed ( As long as your primary care physician has told you that it ok to take both. For fever/aches/pains ER if no less than 101 despite Tylenol or Motrin Humidifier/vaporizer or hot steamy shower Mucinex during the day for your cough and cough suppressant only at night. Be sure to drink lots of water. Insurance may not cover a prescriptions for mucinex. Might be cheaper to get 400mg tablets and take 2 tablet in the morning, mid-day and evening with lots of water. *Start steroid today. Helps with inflammation therefore, cough and wheezing. Follow directions on the package. Reviewed side effects. Patient reports taking them before. Follow up IMMEDIATELY for new or worsening of symptoms OR no noticeable improvement over the next 48-72 hours. 911 immediately for any life threatening symptoms such as chest pain or difficulty breathing Clinical Impressions Clinical Impression: Bronchitis Instructions Patient Instructions: Acute Bronchitis Discharge ED Provider: Coty Zaragoza [facility] [place] HPI General Stated complaint: cough, chest congestion, runny nose Mode of Arrival: Ambulatory Source of Information: Patient Limitations: No Limitations Time Seen by Provider: 02/22/23 11:37 Description of Symptoms (Recalled from Triage Doc. by RN): PATIENT C/O PRODUCTIVE COUGH, RUNNY NOSE, CHEST CONGESTION X 3 WEEKS HEENT Symptoms (Recalled from RN notes): Yes Resp Symptoms (Recalled from RN notes): Yes Skin Symptoms (Recalled from RN notes): No MS Symptoms (Recalled from RN notes): No Functional Status (Recalled from RN notes): WNL History of Present Illness Provider Complaint: Patient states that she was treated a few weeks ago for sinus infection and feels like it has moved into her chest States that often she has to come back and get a zpack to clear it up from her chest S
[2023-02-22 11:55] VITALS: BP 118/70; PULSE 86; RESP 19; TEMP 36.9; O2SAT 98
== END 2023-02-22 11:58 | disposition home or self-care (01) ==
PROVIDERS: Emergency Provider Nurse Practitioner; PCP Family Medicine
DX: J20.9 Acute bronchitis, unspecified (principal); Z87.891 Personal history of nicotine dependence
CPT/HCPCS: 99212; 99214; G0463

== ENCOUNTER 2023-10-04 15:07 | Inpatient (IN) | payer MEDICARE, BC, SELFPAY ==
[2023-10-04 15:08] VITALS: BP 154/83; PULSE 74; RESP 18; TEMP 37.2; O2SAT 95; BMI 35.2
--- NOTE | 2023-10-04 15:23 | CT_ITS ---
PROCEDURE INFORMATION: Exam: CT Abdomen And Pelvis With Contrast Exam date and time: 10/04/2023 4:20 PM Age: 73 years old Clinical indication: Abdominal pain; Additional info: Lower abd pain/nausea/vom h/o bowel obstruction TECHNIQUE: Imaging protocol: Computed tomography of the abdomen and pelvis with contrast. Radiation optimization: All CT scans at this facility use at least one of these dose optimization techniques: automated exposure control; mA and/or kV adjustment per patient size (includes targeted exams where dose is matched to clinical indication); or iterative reconstruction. Contrast material: ISOVUE; Contrast volume: 75 ml; Contrast route: IV; COMPARISON: CT ABDOMEN PELVIS W CON 04/23/2022 12:48 AM FINDINGS: Tubes, catheters and devices: Posterior left lower back spinal nerve stimulator housing device with intact catheters, incompletely visualized. Lungs: Bibasilar atelectasis and scarring, similar to prior comparison. Noted right middle lobe nodule is not appreciated on this examination. Heart: Base of heart is unremarkable as visualized. Coronary arteries: Heavy calcified atherosclerotic disease of the visualized coronary vasculature. Liver: Diffuse hepatic steatosis. Gallbladder and bile ducts: Gallbladder is distended, multiple small calcified dependent gallstones are appreciated within the gallbladder, no secondary evidence of inflammation. Extrahepatic common biliary duct similar in caliber to prior comparison. Pancreas: Normal. No ductal dilation. Spleen: Multiple calcified splenic granulomas are again noted. Adrenal glands: Normal. No mass. Kidneys and ureters: Unchanged right renal pelvic calcifications. Unchanged bilateral renal hypodensities. Stomach and bowel: Fatty mass expands the posterolateral wall of the sigmoid colon (series 3, image 84; series 1002, image 55; series 1001, image 49), fatty mass measures 1.5 x 1.0 x 1.1 cm, likely reflects benign lipoma/lipomatous mass. Long segment loop of small bowel is dilated up to 3.3 cm within the bilateral lower quadrants (series 3, image 89). Dilated loop appears to begin with gradual tapering to pathologic size about the mid jejunum, and terminates at the level of the anastomotic suture chain. There is collapsed small bowel distally, as well as, colon with small amount of fecal matter in the cecum and proximal rectum. Appendix: No evidence of appendicitis. Intraperitoneal space: Redemonstrated central mesenteric fat stranding similar to prior comparative examination. There is intimate relationship with the anterior abdominal omentum and abdominal wall with multiple loops of small bowel obliterating anterior fat plane concerning for possible adhesions. Small amount of intraperitoneal simple ascites is appreciated within the left lower quadrant. Vasculature: Heavy calcified atherosclerotic disease of the visualized aorta and its major branches. Lymph nodes: Unremarkable. No enlarged lymph nodes. Urinary bladder: Unremarkable as visualized. Reproductive: Status post hysterectomy. Bones/joints: Diffuse degenerative changes of the visualized osseous structures, similar in severity to prior comparison. Soft tissues: Multiple breast calcifications are noted bilaterally. Rectus diastasis with small intraperitoneal fat protrusion, supraumbilical. Anterior midline postsurgical changes of the abdominal subcutaneous fat. IMPRESSION: 1. Long segment small bowel obstruction with proximal tapering beginning at the mid jejunum, ending at the left lower quadrant anastomotic suture chain, reaching up to 3.3 cm within the left lower quadrant. Suggestion of anterior abdominal adhesions given lack of fat plane with multiple loops of anterior small bowel. Small volume left lower quadrant intraperitoneal ascites is present. Collapsed distal bowel is additionally seen. 2. Additional non acute findings as above.
--- NOTE | 2023-10-04 15:24 | ED_ITS ---
Discharge Plan Disposition Patient Disposition: Admitted Clinical Impressions Clinical Impression: Bowel obstruction Qualifiers: Intestinal obstruction type: unspecified Intestinal obstruction extent: u nspecified extent Qualified Code(s): K56.609 - Unspecified intestinal obstruction, unspecified as to partial versus complete obstruction Discharge ED Provider: Aminah Ruvalcaba General Adult HPI General Chief complaint: Abdominal Pain Stated complaint: abd pain Time Seen by Provider: 10/04/23 15:11 Mode of Arrival: Ambulatory Source of Information: Patient Limitations: No Limitations Description of Symptoms (Recalled from ER Triage Doc. by RN): c/o lower abdomen pain that runs across her abdomen intermittent. N/V, got sweaty before vomiting. Denies diarrhea History of Present Illness HPI narrative: This patient is a 73-year-old female with a history of hypertension, hyperlipidemia, diabetes, seasonal asthma, hysterectomy, prior hernia repairs, and prior bowel obstruction requiring surgical intervention presenting with concern for abdominal pain, nausea, and vomiting. Patient reports that she initially started having lower abdominal pain this morning all the way across her lower abdomen. She describes it as intermittent spasming. She states it feels the same as her prior bowel obstruction. She notes that just prior to coming in, she developed nausea and vomiting. She notes she had 2 good bowel movements this morning, which were normal for her, however since then, she has not been passing gas. No urinary symptoms or other concerns. Related Data Home Medications Medication Instructions Recorded Confirmed atenolol 25 mg tablet 25 mg PO DAILY Hypertension 90 07/04/18 10/04/23 days #90 tabs lansoprazole 30 mg capsule,delayed 30 mg PO DAILY Cholesterol 90 days 07/04/18 10/04/23 release #90 caps montelukast 10 mg tablet 10 mg PO DAILY Allergy symptoms 30 07/04/18 10/04/23 days #30 tabs sertraline 100 mg tablet 100 mg PO DAILY Depression 90 days 07/04/18 10/04/23 #180 tabs simvastatin 20 mg tablet 20 mg PO HS Cholesterol 90 days 07/04/18 10/04/23 #90 tabs gabapentin 800 mg tablet 800 mg PO TID NEUROPATHY 12/30/20 10/04/23 lisinopril 10 1 tab PO DAILY Hypertension 12/30/20 10/04/23 mg-hydrochlorothiazide 12.5 mg tablet Allergies Allergy/AdvReac Type Severity Reaction Status Date / Time No Known Drug Allergies Allergy Unknown Verified 12/14/21 12:03 [facility] Disclaimer: The information contained in this section may have been updated after the patient was seen, as this information can be updated by other users. Medical History (Updated 10/04/23 @ 20:17 by Jose Manuel Garrido MD) Diabetes mellitus Breast cancer Arthritis Spinal cord stimulator status Hyperlipemia Hypertension SBO (small bowel obstruction) Surgical History (Updated 10/04/23 @ 18:30 by Gosia Celeste RN) H/O hernia repair Social History Smoking Status: Current every day smoker alcohol intake: never current occupational status: other Travel in the last 8 weeks: None ROS Obtained: Yes All systems reviewed & no additional complaints except as documented Physical Exam General General appearance: alert, in no apparent distress and obese Comment: Uncomfortable appearing Head Head exam: atraumatic and normocephalic Eye Eye exam: Present normal appearance, PERRL and EOMI ENT ENT exam: Present normal exam, normal oropharynx, mucous membranes moist and normal external ear exam Neck Neck exam: Present normal inspection, full ROM and trachea midline; Absent tenderness Chest Chest inspection: Present normal inspection and symmetric chest wall rise; Absent tenderness Respiratory Respiratory exam: Present normal lung sounds bilaterally; Absent respiratory distress, wheezes, stridor or accessory muscle use Cardiovascular Cardiovascular exam: Present regular rate and normal rhythm Abdominal Exam Abdominal exam: Present soft and tenderness (All across lower abdomen); Absent distention or guarding Abdominal tenderness: Present RLQ, LLQ and suprapubic Extremities Exam Extremities exam: Present normal inspection, full ROM and normal capillary refill; Absent tenderness or edema Back Exam Back exam: Present normal inspection and full ROM; Absent tenderness Neurological Exam Neurological exam: Present alert, oriented X3, CN II-XII intact and normal gait; Absent motor sensory deficit Psychiatric Psychiatric exam: Present normal affect and normal mood Skin Skin exam: Present warm and dry Medical Decision Making Medical Records Medical records reviewed: Yes I reviewed the patient's medical records. Karl Inquiry Pt receiving controlled substance: No Vital Signs: 10/04/23 15:08 10/04/23 15:30 Temperature 98.9 F Temperature Source Temporal Artery Scan Pulse Rate 75 Pulse Rate [Left Radial] 74 Respiratory Rate 18 Blood Pressure 158/85 H Blood Pressure [Right Arm] 154/83 H Blood Pressure Mean [Right Arm] 106 Blood Pressure Source [Right Arm] Automatic Cuff Blood Pressure Position [Right Arm] Sitting 02 Sat by Pulse Oximetry 95 97 Oxygen Delivery Method Room Air Room Air Lab Data Lab results reviewed: Yes I reviewed the patient's lab results. Lab Results 10/04/23 15:46: WBC 11.0 H, RBC 5.21, Hgb 15.2, Hct 46.4, MCV 89.0, MCH 29.3, MCHC 32.9, RDW 14.5, Plt Count 247, MPV 7.7, Neut % (Auto) 80.8 H, Lymph % (Auto) 14.3, Sabine % (Auto) 3.7, Eos % (Auto) 0.7, Baso % (Auto) 0.5, Neut # (Auto) 8.9 H, Lymph # (Auto) 1.6, Sabine # (Auto) 0.4, Eos # (Auto) 0.1, Baso # (Auto) 0.1, Sodium 139, Potassium 4.1, Chloride 99, Carbon Dioxide 36 H, Anion Gap 8.1, BUN 15, Creatinine 0.70, Estimated Creat Clear 80, Estimated GFR 82, Est GFR ( Amer) 99, Glucose 146 H, Calcium 9.7, Total Bilirubin 0.6, AST 33, ALT 25, Alkaline Phosphatase 109, Total Protein 7.3, Albumin 4.1, Globulin 3.2, Albumin/Globulin Ratio 1.3, Lipase 263 10/04/23 16:29: Lactate 1.2 10/04/23 15:46 10/04/23 15:46 Orders (Tests/Meds): ED MEDICATIONS Generic Name Dose Route Start Last Admin Trade Name Freq PRN Reason Stop Dose Admin Dextrose/Sodium Chloride 1,000 mls @ 50 mls/hr 10/04/23 18:15 10/04/23 19:54 Dextrose 5%-0.45% Nacl Iv Soln IV 11/03/23 18:14 50 mls/hr .Q20H DAWSON Administration Ketorolac Tromethamine 15 mg 10/04/23 18:01 Ketorolac 30mg/Ml Vial IV 10/09/23 18:00 Q8HP PRN pain Morphine Sulfate 4 mg 10/04/23 18:01 10/04/23 22:22 Morphine 4mg/Ml Syringe IV 11/03/23 18:00 4 mg Q2HP PRN Administration pain Ondansetron HCl 4 mg 10/04/23 18:01 Ondansetron 4mg/2ml Vial IV 11/03/23 18:00 Q8HP PRN Nausea And Vomiting Discontinued Medications Generic Name Dose Route Start Last Admin Trade Name Freq PRN Reason Stop Dose Admin Lactated Ringer's 1,000 mls @ 999 mls/hr 10/04/23 15:24 10/04/23 15:46 Lactated Ringer's 1000 Ml Bag IV 10/04/23 16:24 999 mls/hr .Q1H1M ONE Administration Iopamidol 75 ml 10/04/23 16:26 10/04/23 16:27 Iopamidol-370 (76%);100ml Bottle IV 10/04/23 16:27 75 ml ONCE ONE Administration Ketorolac Tromethamine 15 mg 10/04/23 16:38 10/04/23 17:06 Ketorolac 30mg/Ml Vial IV 10/04/23 16:39 15 mg ONCE ONE Administration Morphine Sulfate 4 mg 10/04/23 15:24 10/04/23 15:45 Morphine 4mg/Ml Syringe IV 10/04/23 15:25 4 mg ONCE ONE Administration Morphine Sulfate 4 mg 10/04/23 16:38 10/04/23 17:07 Morphine 4mg/Ml Syringe IV 10/04/23 16:39 4 mg ONCE ONE Administration Ondansetron HCl 4 mg 10/04/23 15:24 10/04/23 15:46 Ondansetron 4mg/2ml Vial IV 10/04/23 15:25 4 mg ONCE ONE Administration Sodium Chloride 10 ml 10/04/23 16:26 10/04/23 16:27 Sodium Chloride 0.9% 10ml Syr (Rad Only) IV 10/04/23 16:27 10 ml ONCE ONE Administration ORDERS Category Date Time Status CT abdomen pelvis w con Stat Cat Scan 10/04/23 15:23 Completed Chest XR -- portable [XR chest portable] Stat Exams 10/04/23 18:18 Completed Complete Blood Count Auto Diff Stat Lab 10/04/23 15:46 Completed Comprehensive Metabolic Panel Stat Lab 10/04/23 15:46 Completed Lactic Acid Stat Lab 10/04/23 16:29 Completed Lipase Stat Lab 10/04/23 15:46 Completed UA [Urinalysis and Microscopic] Stat Lab 10/04/23 15:23 Ordered Medical Decision Narrative: In summary, this patient is a 73-year-old female presenting to the Emergency Department for evaluation of abdominal pain, nausea, and vomiting. Differential diagnoses considered include but are not limited to appendicitis, cystitis, pyelonephritis, bowel obstruction, colitis, diverticulitis, constipation. Ruling out the most morbid conditions drove assessment. On exam, the patient is nontoxic-appearing, but she is uncomfortable appearing. She has lower abdominal tenderness but no rebound or guarding. Workup included CBC, CMP, lipase, lactic acid, urinalysis, and CT abdomen pelvis with IV contrast. She is given a bolus of IV fluids as well as IV morphine and Zofran for symptomatic improvement. I independently interpreted CT scan prior to the radiologist read and noted bowel obstruction. Please see their read for final interpretation. Labs were obtained that demonstrated very mild leukocytosis without other acutely concerning abnormalities. On reassessment, patient had some improvement after administration of medications above, but she had continued pain so she was given another dose of morphine as well as IV Toradol. I called and had an interactive discussion with Dr. Love with general surgery who advised that he was fine seeing the patient in consultation here for bowel obstruction. Patient was consented for NG tube and it was placed. I had an interactive discussion with Dr. Garrido, the patient's primary care provider, who admitted her for further evaluation and management of bowel obstruction.. Patient was admitted in stable condition. Critical Care Critical Care Time Critical Care Time: No
[2023-10-04 15:30] VITALS: BP 158/85; PULSE 75; O2SAT 97
--- OUTSIDE RECORDS SUMMARY | 2023-10-04 15:36 | XMS_ITS | Continuity of Care Document ---
Author Name Unknown Organization 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 Name Role Phone Zachery Perdomo MD Unavailable Unavailable Allergies, Adverse Reactions, Alerts Substance Reaction Status Criticality No Known Allergies Active No Inform ation Medications Medication Instructions Dosage Effective Dates (start - stop) Status Comments meloxicam 15 mg tablet take 1 tablet by oral route every day as needed - Active gabapentin 800 mg tablet take 1 tablet by oral route 3 times every day 800 MG - Active duloxetine 60 mg capsule,delayed release take 1 capsule by oral route every day 60 MG - Active albuterol sulfate HFA 90 mcg/actuation aerosol inhaler inhale 2 puff by inhalation route every 4 - 6 hours as needed 180 MCG - Active Centrum Silver Women 8 mg iron-400 mcg-300 mcg tablet 1 tablet daily - Active Tylenol Arthritis Pain 650 mg tablet,extended release take 2 tablet by oral route every 8 hours as needed swallowing whole with water. Do not break, crush, dissolve and/or chew. 1300 MG - Active simvastatin 20 mg tablet take 1 tablet by oral route every day in the evening 20 MG - Active lisinopril 10 mg tablet take 1 tablet by oral route every day 10 MG - Active atenolol 25 mg tablet take 1 tablet by o ral route every day 25 MG - Active Calcium 600 600 mg calcium (1,500 mg) tablet take 1 tablet by oral route every day 1 tablet - Active Multiple Vitamins tablet take 1 by oral route every day 1 - Active Prevacid 30 mg capsule,delayed release take 1 capsule by oral route every day before a meal 30 MG - Active Procedures Procedure Date Office Visit Level IV CHRON CARE MGMT SRVC 20 MIN CHRON CARE MGMT SRVC 20 MIN CHRON CARE MGMT SRVC 20 MIN Office Visit Level IV CHRON CARE MGMT SRVC 20 MIN Office Visit Level IV CHRON CARE MGMT SRVC 20 MIN CHRON CARE MGMT SRVC 20 MIN CHRON CARE MGMT SRVC 20 MIN CMPLX CHRON CARE W/O PT VSIT Office Visit Level IV Office Visit Level IV Office Visit Level III Office Visit Level IV Office Visit Level III Office Visit Level IV Office Visit Level IV Office Visit Level IV Office Visit Level IV Office Visit Level IV Results Test Name Date and Time Measure Units Reference Range Abnormal Flag Status Comments Panel Description: CBC With Differential/Platele t Final WBC 03:08:00 7.5 x10E3/uL 3.4-10.8 Final Performed by:Glory OCONNOR) RBC 03:08:00 4.95 x10E6/uL 3.77-5.28 Final Performed by:Glory OOCNNOR) Hemoglobin 03:08:00 14.4 g/dL 11.1-15.9 Final Performed by:Glory OCONNOR) Hematocrit 03:08:00 42.1 % 34.0-46.6 Final Performed by:Glory OCONNOR) MCV 03:08:00 85 fL 79-97 Final Performed by:Glory OCONNOR) MCH 03:08:00 29.1 pg 26.6-33.0 Final Performed by:Glory OCONNOR) MCHC 03:08:00 34.2 g/dL 31.5-35.7 Final Performed by:Glory OCNONOR) RDW 03:08:00 13.1 % 11.7-15.4 Final Performed by:Glory OCONNOR) Platelets 03:08:00 246 x10E3/uL 150-450 Final Performed by:Glory OCONNOR) Neutrophils 03:08:00 61 % Not Estab. Final Performed by:Glory OCONNOR) Lymphs 03:08:00 29 % Not Estab. Final Performed by:Glory OCONNOR) Monocytes 03:08:00 8 % Not Estab. Final Performed by:Glory OCONNOR) Eos 03:08:00 1 % Not Estab. Final Performed by:Glory OCONNOR) Basos 03:08:00 1 % Not Estab. Final Performed by:Glory OCONNOR) Immature Cells 03:08:00 Final Performed by:Glory OCONNOR) Neutrophils (Absolute) 03:08:00 4.6 x10E3/uL 1.4-7.0 Final Performed by:Glory OCONNOR) Lymphs (Absolute) 03:08:00 2.2 x10E3/uL 0.7-3.1 Final Performed by:Glory OCONNOR) Monocytes(Absolu te) 03:08:00 0.6 x10E3/uL 0.1-0.9 Final Performed by:Glory OCONNOR) Eos (Absolute) 03:08:00 0.1 x10E3/uL 0.0-0.4 Final Performed by:Glory OCONNOR) Baso (Absolute) 03:08:00 0.0 x10E3/uL 0.0-0.2 Final Performed by:Glory OCONNOR) Immature Granulocytes 03:08:00 0 % Not Estab. Final Performed by:Glory OCONNOR) Immature Grans (Abs) 03:08:00 0.0 x10E3/uL 0.0-0.1 Final Performed by:Glory OCONNOR) NRBC 03:08:00 Final Performed by:Glory OCONNOR) Hematology Comments: 03:08:00 Final Performed by:Glory OCONNOR) Panel Description: Comp Metab 2000 Pnl SerPl Fi nal Glucose 09:38:00 122 mg/dL 70-99 H Final Performed by:Glory OCONNOR) BUN 09:38:00 15 mg/dL 8-27 Final Performed by:Glory OCONNOR) Creatinine 09:38:00 0.76 mg/dL 0.57-1.00 Final Performed by:Glory OCONNOR) eGFR 09:38:00 83 mL/min/1. 73 >59 Final Performed by:Glory OCONNOR) BUN/Creatinine Ratio 09:38:00 20 12-28 Final Performed by:Glory OCONNOR) Sodium 09:38:00 143 mmol/L 134-144 Final Performed by:Glory OCONNOR) Potassium 09:40:00 4.1 mmol/L 3.5-5.2 Final Performed by:Glory OCONNOR) Chloride 09:38:00 99 mmol/L 96-106 Final Performed by:Glory OCONNOR) Carbon Dioxide, Total 09:37:00 24 mmol/L 20-29 Final Performed by:Glory OCONNOR) Calcium 09:37:00 9.4 mg/dL 8.7-10.3 Final Performed by:Glory OCONNOR) Protein, Total 09:38:00 7.2 g/dL 6.0-8.5 Final Performed by:Glory OCONNOR) Albumin 09:38:00 4.4 g/dL 3.8-4.8 Final Performed by:Glory OCONNOR) Globulin, Total 09:38:00 2.8 g/dL 1.5-4.5 Final Performed by:Glory Carrion (JUAN) A/G Ratio 09:38:00 1.6 1.2-2.2 Final Performed by:Glory OCONNOR) Bilirubin, Total 09:38:00 0.2 mg/dL 0.0-1.2 Final Performed by:Glory Carrion (JUAN) Alkaline Phosphatase 09:39:00 92 IU/L 44-121 Final Performed by:Glory OCONNOR) AST (SGOT) 09:38:00 26 IU/L 0-40 Final Performed by:Glory OCONNOR) ALT (SGPT) 09:40:00 18 IU/L 0-32 Final Performed by:Glory Carrion (JUAN) Advance Directives Directive Yes / No Effective Date File Name No Information Encounters Encounter Description Practice Location Reason(s) For Visit Diagnoses Date Provider Providers Copied on Encounter Office Visit Level IV [facility] [address] [facility], [place], [place], [id number], tel:[phone] [facility] Follow Up of Osteoarthriti s (chief complaint) Carpal Tunnel SyndromeOste oarthritis Of Both KneesOsteoar thritis of FingerChroni c Back PainTrochant franklin BursitisNSAI D Half-Way UseBody mass index (BMI) 37.0-37.9, adult 4 Conor Bingham. 330 [facility], [address], [place], [place], [id number]. tel:[phone] Referring Provider: Jose Manuel Garrido MD T, [address], [place], [address]. tel:[phone] CHRON CARE MGMT SRVC 20 MIN [facility] [address], [place], [place], [id number], [place] tel:[phone] [facility] No Information 4 Conor Bingham. [address], Suite [facility], [place], [place], [id number]. tel:[phone] Referring Provider: Jose Manuel Chowdary, [address] [place] [address] [address], [place], [address]. tel:[phone] CHRON CARE MGMT SRVC 20 MIN [facility] [address], [id number], [place] tel:[phone] [facility] No Information 3 Conor Bingham. [address], [place] [address], [place], [place], [id number]. tel:[phone] Referring Provider: Jose Manuel Chowdary, [facility] [address], [place], [address]. tel:[phone] CHRON CARE MGMT SRVC 20 MIN [facility] [address], [id number], [place] tel:[phone] [facility] No Information 3 Conor Bingham. [address], [place] [address], [place], [place], [id number]. tel:[phone] Referring Provider: Jose Manuel Chowdary, [address], [address]. tel:[phone] Office Visit Level IV [facility] [address], [id number], [place] tel:[phone] [facility] Follow Up of Osteoarthriti s (chief complaint) Carpal Tunnel SyndromeOste oarthritis Of Both KneesOsteoar thritis of FingerChroni c Back PainTrochant franklin BursitisNSAI D Perfume Maker UseBody mass index (BMI) 36.0-36.9, adult 2 Francis Doreenva. [address], [address], [place], [place], [id number]. tel:[phone] Referring Provider: Jose Manuel Chowdary, [address], [place], [address]. tel:[phone] CHRON CARE MGMT SRVC 20 MIN [facility] [address], [id number], tel:[phone] [facility] No Information 2 Conor Bingham. [address], [facility] 100, [place], [place], [id number]. tel:[phone] Referring Provider: Jose Manuel Chowdary, [facility]0 [facility] [address], [place], [address]. tel:[phone] Office Visit Level IV [facility] [address] [place] [address], [place], [place], [id number], [place] tel:[phone] [facility].. Osteoarthriti s (chief complaint) Carpal Tunnel SyndromeOste oarthritis Of Both KneesOsteoar thritis of FingerChroni c Back PainTrochant franklin BursitisNSAI D Half-Way UseBody mass index (BMI) 39.0-39.9, adult 2 Conor Bingham. [address], [facility] [address], [place], [id number]. tel:[phone] Referring Provider: Jose Manuel Chowdary, [facility], [place], [address]. tel:[phone] CHRON CARE MGMT SRVC 20 MIN [facility] [address], [id number], [place] tel:[phone] [facility] No Information 2 Conor Bingham. [address], [place] [address], [place], [place], [id number]. tel:[phone] Referring Provider: Jose Manuel Chowdary, [address] [place], [place] [address] [address], [address]. tel:[phone] CHRON CARE [facility] SRVC 20 MIN [facility] [address], [id number], [place] tel:[phone] [facility] No Information 2 Conor Bingham. [address], [place] [address], [place], [place], [id number]. tel:[phone] Referring Provider: Jose Manuel Chowdary, [address] [place], [place] [address]y [address], [address]. tel:[phone] CHRON CARE [facility] SRVC 20 MIN [facility] [address], [id number], [place] tel:[phone] [facility] No Information 2 Conor Bingham. [address], [id number]. tel:[phone] Referring Provider: Jose Manuel Chowdary, [address] [place], [place] [address] [address], [address]. tel:[phone] Office Visit Level IV [facility] [address], [id number], [place] tel:[phone] [facility] Osteoarthriti s (chief complaint) Carpal Tunnel SyndromeOste oarthritis Of Both KneesOsteoar thritis of FingerChroni c Back PainTrochant franklin BursitisBody mass index (BMI) 40.0-44.9, adultNSAID Perfume Maker Use Dec-0 1 Francis Sue. [address], [address], [place], [id number]. tel:[phone] Referring Provider: Jose Manuel Chowdary, [address] [place] [address] [address], [place], [address]. tel:[phone] Office Visit Level IV [facility], [address] [place] [address], [id number], tel:[phone] [facility]. Osteoarthriti s (chief complaint) Carpal Tunnel SyndromeOste oarthritis Of Both KneesOsteoar thritis of FingerChroni c Back PainTrochant franklin BursitisBody mass index (BMI) 40.0-44.9, adultNSAID Perfume Maker Use Nov- 1 Conor Bingham. [address], [address], [id number]. tel:[phone] Referring Provider: Jose Manuel Chowdary, [address] [place] [address] [address], [address]. tel:[phone] Office Visit Level III [facility], [address] [place] [address], [id number], tel:[phone] [facility]. Osteoarthriti s (chief complaint) Body mass index (BMI) 40.0-44.9, adultCarpal Tunnel SyndromeOste oarthritis Of Both KneesOsteoar thritis of FingerChroni c Back PainTrochant franklin BursitisNSAI D Half-Way Use 0 Ivy Carter. [address], [facility] [address], [place], [id number]. tel:[phone] Referring Provider: Jose Manuel Chowdary, [facility], [place], [address]. tel:[phone] Office Visit Level IV [facility], [address] [place] [address] [place], [id number], [place] tel:[phone] [facility]. Osteoarthriti s (chief complaint) Carpal Tunnel SyndromeOste oarthritis Of Both KneesOsteoar thritis of FingerChroni c Back PainTrochant franklin BursitisNSAI D Half-Way Use 0 Conor Bingham. [address], [place] [address], [place], [place], [id number]. tel:[phone] Referring Provider: Jose Manuel Chowdary, [address], [place], [address]. tel:[phone] [facility], [address], [id number], [place] tel:[phone] [facility]. No Information 0 Ivy Carter. [address], [place] [address], [place], [place], [id number]. tel:[phone] Office Visit Level III [facility], [address] [address], [place], [place], [id number], [place] tel:[phone] [facility] (chief complaint) Carpal Tunnel SyndromeOste oarthritis Of Both KneesOsteoar thritis of FingerChroni c Back PainTrochant franklin BursitisBody mass index (BMI) 39.0-39.9, adultNSAID Half-Way Use 9 Ivy Carter. [address], [facility] 100, [place], [place], [id number]. tel:[phone] Referring Provider: Jose Manuel Chowdary, [address], [place], [address]. tel:[phone] Office Visit Level IV [facility] [address] [address], [place], [place], [id number], [place] tel:[phone] [facility] Osteoarthriti s (chief complaint) Carpal Tunnel SyndromeOste oarthritis Of Both KneesOsteoar thritis of FingerChroni c Back PainTrochant franklin BursitisNSAI D Half-Way UseBody mass index (BMI) 39.0-39.9, adult May-0 6-201 9 Conor Bingham. [address], [address], [place], [place], [id number]. tel:[phone] Referring Provider: Jose Manuel Garrido MD T, [facility]0 [facility] [address], [address]. tel:[phone] Office Visit Level IV [facility] [address], [id number], tel:[phone] [facility] Osteoarthriti s (chief complaint) Carpal Tunnel SyndromeOste oarthritis Of Both KneesOsteoar thritis of FingerChroni c Back PainTrochant franklin BursitisNSAI D Perfume Maker UseBody mass index (BMI) 40.0-44.9, adult Apr-0 1-201 8 Ivy Carter. [address], [address], [place], [place], [address]. tel:[phone] Referring Provider: Jose Manuel Chowdary, [address], [address]. tel:[phone] Office Visit Level IV [facility] [address] [facility] [address] [place] [address], [id number], [place] tel:[phone] [facility] Osteoarthriti s (chief complaint) Carpal Tunnel SyndromeOste oarthritis Of Both KneesOsteoar thritis of FingerChroni c Back PainTrochant franklin BursitisNSAI D Perfume Maker UseBody mass index (BMI) 37.0-37.9, adult May-0 1-201 8 Conorfranchesca Bingham. [address], [address], [place], [place], [id number]. tel:[phone] Referring Provider: Jose Manuel Chowdary, [address], [place], [address]. tel:[phone] Office Visit Level IV [facility] [address] [place] [address], [id number], tel:[phone] [facility] Osteoarthriti s (chief complaint) Carpal Tunnel SyndromeOste oarthritis of FingerChroni c Back PainTrochant franklin BursitisNSAI D Perfume Maker UseOsteoarth ritis Of Both Knees 7 Conorfranchesca Bingham. [address], [id number]. tel:[phone] Referring Provider: Jose Manuel Chowdary, [facility], [place], [address]. tel:[phone] [facility] [address] [place] [address], [id number], [place] tel:[phone] [facility] NSAID Perfume Maker UseTrochante bipin BursitisCarp al Tunnel SyndromeOste oarthritis of FingerChroni c Back Pain 7 Conor Bingham. [address] [place] [address], [place], [place], [address]. tel:[phone] Office Visit Level IV [facility] [address] [place] [address], [id number], [place] tel:[phone] [facility] No Information 7 Conor Bingham. [address] [place] [address], [id number]. tel:[phone] Referring Provider: Jose Manuel Chowdary, [address], [place], [address]. tel:[phone] Family History Family Member Type Diagnosis Age At Onset Mother Problem (finding) Mother Problem (finding) Degenerative Arthritis Mother Problem (finding) Hypercholesterolemia Mother Problem (finding) hypertension Father Problem (finding) Degenerative Arthritis Father Problem (finding) Hypertension Father Problem (finding) Heart Disease Brother Problem (finding) Elevated Cholesterol Mother Problem (finding) Alzheimer's Father Problem (finding) Alive and well Brother Problem (finding) hypertension Father Problem (finding) Diabetes mellitus Father Problem (finding) Hypercholesterolemia Immunizations Vaccine Date Status Comments SARS-COV-2 (COVID-19) vaccin e, mRNA, spike protein, LNP, preservative free, 100 mcg/0.5mL dose (Moderna) administered Sourc e: Other Provider Flu (split) (3 yrs or older) administered Source: Other Provider SARS-COV-2 (COVID-19) vaccin e, mRNA, spike protein, LNP, preservative free, 100 mcg/0.5mL dose (Moderna) administered Sourc e: Public Agency SARS-COV-2 (COVID-19) vaccin e, mRNA, spike protein, LNP, preservative free, 100 mcg/0.5mL dose (Moderna) administered Sourc e: Public Agency Flu (split) (3 yrs or older) administered Source: Other Provider Flu (split) (3 yrs or older) administered Source: Other Provider Payers Payer name Insurance type Covered republican ID Authoriza tidimas(s) Medicare [id number] [id number] Social History Type Description Quantity Date Captured Comments Alcohol Use Details Unknown Caffeine Use Details Unknown Tobacco Use Status No Information Smoking Status Former smoker Sex Female Vital Signs Date / Time: Height Weight BMI Pulse Rate Blood Pressure Temperature Respiratory Rate Body Surface Area Head Circumference Head Circ. Percentile Wt./Raghavendra. Percentile BMI percentile Pulse Ox Inhaled Ox 3:41 PM 65.25 in 103.963 kg (229.20 lbs) 37.8 5 kg/m eter (2) 80 /min 118/76 mm[Hg] 97.90 F Chief Complaint And Reason For Visit From encounter dated '07/06/2023 15:45'. Follow Up of Osteoarthritis (chief complaint). Description: Location of the pain is lower back, midback and left hip. The patient describes it as stiff, tender, dull, throbbing and achy. It occurs intermittently. The problem is improving. Symptom is aggravated by walking upstairs, walking downstairs, standing, walking, overuse and weather. Relieving factors include sitting, stretching, exercise and Rx Meds. Associated symptoms include gelling phenomenon, paresthesia and weight loss. Pertinent negatives include claudication, diarrhea, dyspnea, falling, fatigue, fever, incontinence (fecal), incontinence (urinary), rash and weakness. Reason For Referral Reason For Referral No Information Plan Of Treatment Date Type Action Status Goal Lifestyle educat ion regarding diet completed Goal Lifestyle educat ion regarding diet completed Goal Lifestyle educat ion regarding diet completed Goal Lifestyle educat ion regarding diet completed Goal Lifestyle educat ion regarding diet completed Goal Lifestyle educat ion regarding diet completed Goal Lifestyle educat ion regarding diet completed Goal Lifestyle educat ion regarding diet completed Goal Lifestyle educat ion regarding diet completed Goal Dietary manageme nt education, guidance, and counseling completed Appointment Cynthia Harding BOOKED Future Order: Lab Order CBC With Differential/Platelet ([id number]), Sent on: Sent Future Order: Lab Order Comp. Me tabolic Panel (14) ([id number]), Sent on: Sent Future Order: Lab Order CBC With Differential/Platelet ([id number]), Ordered on: Ordered Future Order: Lab Order Comp. Me tabolic Panel (14) ([id number]), Ordered on: Ordered Future Order: Lab Order CBC With Differential/Platelet ([id number]), Ordered on: Ordered Future Order: Lab Order Comp. Me tabolic Panel (14) ([id number]), Ordered on: Ordered Future Order: Lab Order CBC With Differential/Platelet ([id number]), Ordered on: Ordered Future Order: Lab Order Comp. Me tabolic Panel (14) ([id number]), Ordered on: Ordered Future Order: Lab Order CBC With Differential/Platelet ([id number]), Ordered on: Ordered Future Order: Lab Order Comp. Me tabolic Panel (14) ([id number]), Ordered on: Ordered Future Order: Lab Order CBC With Differential/Platelet ([id number]), Ordered on: Ordered Future Order: Lab Order Comp. Ga tabolic Panel (14) ([id number]), Ordered on: Ordered Future Order: Lab Order CBC With Differential/Platelet ([id number]), Ordered on: Ordered Future Order: Lab Order Comp. Ga tabolic Panel (14) ([id number]), Ordered on: Ordered Future Order: Lab Order CBC With Differential/Platelet ([id number]), Ordered on: Ordered Future Order: Lab Order Comp. Ga tabolic Panel (14) ([id number]), Ordered on: Ordered Future Order: Radiology Order Mona mbar Spine MRI WITHOUT Contrast ([id number]), Ordered on: Ordered Future Order: Lab Order CBC With Differential/Platelet ([id number]), Ordered on: Ordered Future Order: Lab Order Comp. Ga tabolic Panel (14) ([id number]), Ordered on: Ordered Future Order: Lab Order CBC With Differential/Platelet ([id number]), Ordered on: Ordered Future Order: Lab Order Comp. Ga tabolic Panel (14) ([id number]), Ordered on: Ordered Future Order: Lab Order CBC With Differential/Platelet ([id number]), Ordered on: Ordered Future Order: Lab Order Comp. Me tabolic Panel (14) ([id number]), Ordered on: Ordered History Of Present Illness Encounter Date Complaint History Of Prese nt Illness Follow Up of Osteoarthritis Loca tion of the pain is lower back, mid back and left hip. The patient describes it as stiff, tender, dull, throbbing and achy. It occurs intermittently. The problem is improving. Symptom is aggravated by walking upstairs, walking downstairs, standing, walking, overuse and weather. Relieving factors include sitting, stretching, exercise and Rx Meds. Associated symptoms include gelling phenomenon, paresthesia and weight loss. Pertinent negatives include claudication, diarrhea, dyspnea, falling, fatigue, fever, incontinence (fecal), incontinence (urinary), rash and weakness. Follow Up of Osteoarthritis Loca tion of the pain is lower back, mid back and left hip. The patient describes it as stiff, tender, dull, throbbing and achy. It occurs intermittently. The problem is improving. Symptom is aggravated by walking upstairs, walking downstairs, standing, walking, overuse and weather. Relieving factors include sitting, stretching, exercise and Rx Meds. Associated symptoms include gelling phenomenon, paresthesia and weight loss. Pertinent negatives include claudication, diarrhea, dyspnea, falling, fatigue, fever, incontinence (fecal), incontinence (urinary), rash and weakness. Osteoarthritis Location of the pain is lower back, mid back and left hip. The patient describes it as stiff, tender, dull, throbbing and achy. It occurs intermittently. The problem is improving. Symptom is aggravated by walking upstairs, walking downstairs, standing, walking, overuse and weather. Relieving factors include sitting, stretching, exercise and Rx Meds. Associated symptoms include gelling phenomenon, paresthesia and weight loss. Pertinent negatives include claudication, diarrhea, dyspnea, falling, fatigue, fever, incontinence (fecal), incontinence (urinary), rash and weakness. Osteoarthritis Location of the pain is lower back, mid back and left hip. The patient describes it as stiff, tender, dull, throbbing and achy. It occurs intermittently. The problem is improving. Symptom is aggravated by walking upstairs, walking downstairs, standing, walking, overuse and weather. Relieving factors include sitting, stretching, exercise and Rx Meds. Associated symptoms include gelling phenomenon and paresthesia. Pertinent negatives include claudication, diarrhea, dyspnea, falling, fatigue, fever, incontinence (urinary), rash, weakness and weight loss. Osteoarthritis Location of the pain is lower back, mid back and left hip. The patient describes it as stiff, tender, dull, throbbing and achy. It occurs intermittently. The problem is improving. Symptom is aggravated by walking upstairs, walking downstairs, standing, walking, overuse and weather. Relieving factors include sitting, stretching, exercise and Rx Meds. Associated symptoms include gelling phenomenon and paresthesia. Pertinent negatives include claudication, diarrhea, dyspnea, falling, fatigue, fever, incontinence (urinary), rash, weakness and weight loss. Osteoarthritis Location of the pain is lower back, mid back and left hip. The patient describes it as stiff, tender, dull, throbbing and achy. It occurs intermittently. The problem is improving. Symptom is aggravated by walking upstairs, walking downstairs, standing, walking, overuse and weather. Relieving factors include sitting, stretching, exercise and Rx Meds. Associated symptoms include dyspnea, gelling phenomenon, paresthesia and rash. Pertinent negatives include claudication, diarrhea, falling, fatigue, fever, incontinence (urinary), weakness and weight loss. Osteoarthritis Location of the pain is lower back, mid back and left hip. The patient describes it as stiff, tender, dull, throbbing and achy. It occurs intermittently. The problem is improving. Symptom is aggravated by walking upstairs, walking downstairs, standing, walking, overuse and weather. Relieving factors include sitting, stretching, exercise and Rx Meds. Associated symptoms include gelling phenomenon, paresthesia, rash and weight loss. Pertinent negatives include claudication, diarrhea, dyspnea, falling, fatigue, fever, incontinence (urinary) and weakness. Osteoarthritis Location of the pain is lower back, mid back and left hip. The patient describes it as stiff, tender, dull, throbbing and achy. It occurs intermittently. The problem is improving. Symptom is aggravated by walking upstairs, walking downstairs, standing, walking, overuse and weather. Relieving factors include sitting, stretching, exercise and Rx Meds. Associated symptoms include dyspnea, gelling phenomenon, paresthesia and rash. Pertinent negatives include claudication, diarrhea, falling, fatigue, fever, incontinence (urinary), weakness and weight loss. Osteoarthritis Location of the pain is lower back, mid back and left hip. The patient describes it as stiff, tender, dull, throbbing and achy. It occurs intermittently. The problem is improving. Symptom is aggravated by walking upstairs, walking downstairs, standing, walking, overuse and weather. Relieving factors include sitting, stretching, exercise and Rx Meds. Associated symptoms include dyspnea, gelling phenomenon, paresthesia and rash. Pertinent negatives include claudication, diarrhea, falling, fatigue, fever, incontinence (urinary), weakness and weight loss. Osteoarthritis Location of the pain is lower back, mid back and left hip. The patient describes it as stiff, tender, dull, throbbing and achy. It occurs intermittently. The problem is improving. Symptom is aggravated by walking upstairs, walking downstairs, standing, walking, overuse and weather. Relieving factors include sitting, stretching, exercise and Rx Meds. Associated symptoms include fatigue, gelling phenomenon, paresthesia and rash. Pertinent negatives include claudication, diarrhea, dyspnea, falling, fever, incontinence (urinary), weakness and weight loss. Osteoarthritis Location of the pain is lower back, mid back and left hip. The patient describes it as stiff, tender, dull, throbbing and achy. It occurs intermittently. The problem is improving. Symptom is aggravated by walking upstairs, walking downstairs, standing, walking, overuse and weather. Relieving factors include sitting, stretching, exercise and Rx Meds. Associated symptoms include gelling phenomenon and paresthesia. Pertinent negatives include claudication, diarrhea, dyspnea, falling, fatigue, fever, incontinence (urinary), rash, weakness and weight loss. Additional information: Better. Back to exercise and doing Eulogio Chi. CTS is doing well with splints. Neuropathy is ok with gabpentin. Celebrex still helps greatly. PMH is unchanged. Osteoarthritis Location of the pain is lower back and left hip. The patient describes it as stiff, tender, dull, throbbing and achy. It occurs intermittently. The problem is stable. Symptom is aggravated by walking upstairs, walking downstairs, standing, walking, overuse and weather. Relieving factors include sitting and Rx Meds. Associated symptoms include gelling phenomenon and paresthesia. Pertinent negatives include claudication, diarrhea, dyspnea, fatigue, fever, incontinence (urinary), rash and weight loss. Additional information: Increased gabapentin helped neuropathy. Celebrex still helps greatly. PMH is unchanged. 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 She had a spinal stimulator placed and this has been somewhat helpfulShe would like to restart meloxicam. VAS 3/10, global 3/10Labs today. Recheck in 6 months. Related to Chronic Back Pain Resolved Related to Troch anteric Bursitis Risks of NSAIDs disc ussed including GI upset, GI bleeding, renal and hepatic risks and the risks of cardiovascular disease. Warned not to take with other NSAIDs including OTC NSAIDs Related to NSAID Perfume Maker Use Lifestyle education regarding di et Related to Body mass index [BMI] 37.0-37.9, adult Uses splints PRNThes e symptoms have both resolved Related to Carpal Tunnel Syndrome Resolved Related to Troch anteric Bursitis She is no longer ashley ing meloxicamRisks of NSAIDs discussed including GI upset, GI bleeding, renal and hepatic risks and the risks of cardiovascular disease. 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 She recently had a spinal stimulator placed and this has been very helpfulShe has not been needing to take meloxicam at all since this was placedVAS 0/10, global 110Request most recent labs from PCPWe will follow her annually for now. She can call us if she has any concerns in between her visits Related to Chronic Back Pain Lifestyle education regarding di et Related to Body mass index [BMI] 36.0-36.9, adult Uses splints PRNThes e symptoms have both resolved Related to Carpal Tunnel Syndrome Resolved. Related to Troch anteric Bursitis Continue meloxicamRi sks of NSAIDs discussed including GI upset, GI bleeding, renal and hepatic risks and the risks of cardiovascular disease. Warned not to take with other NSAIDs including OTC NSAIDs Related to NSAID Half-Way Use Stable and acceptable. 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 She is planning spinal stimulator. VAS 02/21Global 09/21I will RF Mobic. She feels it helps. PCP writes her gabapentin. She is currently taking 1800mg/day.She takes Cymbalta for pain. .Labs today. New order providedF/u 6 months Related to Chronic Back Pain Lifestyle education regarding di et Related to Body mass index [BMI] 39.0-39.9, adult Uses splints PRNThes e symptoms have both resolved Related to Carpal Tunnel Syndrome Not bothering her anymore Relate d to Trochanteric Bursitis Continue meloxicamRi sks of NSAIDs discussed including GI upset, GI bleeding, renal and hepatic risks and the risks of cardiovascular disease. Warned not to take with other NSAIDs including OTC NSAIDs Related to NSAID Perfume Maker Use Pain can be limiting but overall doing well. 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 She has done PT. This was helpfulVAS 6/10Global 11/21PCP writes her gabapentin. She is currently taking 1800mg/day.She was started on Cymbalta in the interim.Mobic is still helpful. Labs today. New order providedF/u 6 months Related to Chronic Back Pain Lifestyle education regarding di et Related to Body mass index [BMI] 40.0-44.9, adult Better with splints. Related to Carpal Tunnel Syndrome Much better. Related to Troch anteric Bursitis Risks of NSAIDs disc ussed including GI upset, GI bleeding, renal and hepatic risks and the risks of cardiovascular disease. Warned not to take with other NSAIDs including OTC NSAIDs. Related to NSAID Half-Way Use Pain can be limiting but overall doing well. NSAIDs help. 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 . VAS 6/10Global 10/21PCP writes her gabapentin. She is currently taking 1800mg/day.Mobic is still helpful. Labs today. F/u 6 months. Related to Chronic Back Pain Lifestyle education regarding di et Related to Body mass index [BMI]40.0-44.9, adult Better with splints. Related to Carpal Tunnel Syndrome Much better. Related to Troch anteric Bursitis Risks of NSAIDs disc ussed including GI upset, GI bleeding, renal and hepatic risks and the risks of cardiovascular disease. Warned not to take with other NSAIDs including OTC NSAIDs. Related to NSAID Perfume Maker Use Pain can be limiting but overall doing well. NSAIDs help. 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 Has reported right radicular pain since 04/2019. VAS 8/10Global 7/10Instructed her, again, that she needs to follow up with Dr. Chairez. PCP writes her gabapentin. She is currently taking 1800mg/day.I offered to change her Mobic to a different NSAID, she declined at this time wants to see Contreras first. Related to Chronic Back Pain Lifestyle education regarding di et Related to Body mass index [BMI]40.0-44.9, adult Stable. Related to Osteo arthritis of Finger Much better. Related to Troch anteric Bursitis Risks of NSAIDs disc ussed including GI upset, GI bleeding, renal and hepatic risks and the risks of cardiovascular disease. Warned not to take with other NSAIDs including OTC NSAIDs. Related to NSAID Perfume Maker Use Increased right radi cular pain with standing. Pt global is 4/10 and VAS is 6/10. PCP writes her gabapentin. I encouraged her to f/u with Dr Foster. I will recheck in 6 months. Related to Chronic Back Pain Better with splints. Related to Carpal Tunnel Syndrome Overall doing well.NSAIDs help. Related to Osteoarthritis Of Both Knees Better with splints. Related to Carpal Tunnel Syndrome Pain can be limiting but overall doing well. VAS and pt global are 5/10. NSAIDs help. 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 She needs to follow up with Dr. Foster. PCP writes her gabapentin. She plans to ask them to increase the dose until she can follow up with Cristian. Related to Chronic Back Pain Much better. Related to Troch anteric Bursitis Risks of NSAIDs disc ussed including GI upset, GI bleeding, renal and hepatic risks and the risks of cardiovascular disease. Warned not to take with other NSAIDs including OTC NSAIDs. Related to NSAID Half-Way Use Lifestyle education regarding di et Related to Body mass index (BMI) 39.0-39.9, adult Better since surgery 07/02. No more radicular/spinal stenosis symptoms. Related to Chronic Back Pain Much better. Related to Troch anteric Bursitis Risks of NSAIDs disc ussed including GI upset, GI bleeding, renal and hepatic risks and the risks of cardiovascular disease. Warned not to take with other NSAIDs including OTC NSAIDs. Related to NSAID Perfume Maker Use Better with splints. Related to Carpal Tunnel Syndrome Pain can be limiting but overall doing well. VAS and pt global are 2/10. NSAIDs help. 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 Related to Osteo arthritis of Finger Lifestyle education regarding di et Related to Body mass index (BMI) 39.0-39.9, adult Stable. Related to Osteo arthritis of Finger Much better. Related to Troch anteric Bursitis Pain increased over the past 2 months after fall. She has continued exercises and Eulogio Chi She doesn't feel Celebrex is as helpfullast MRI with Dr. Colon in 2016. Injections per Colleen were not beneficial then. Repeat MRIDiscussed pending results will determine if she needs to see NS vs. new pain tx. Change NSAID to Mobic Related to Chronic Back Pain Better with splints. Related to Carpal Tunnel Syndrome Stable Related to Osteo arthritis Of Both Knees Risks of NSAIDs disc ussed including GI upset, GI bleeding, renal and hepatic risks and the risks of cardiovascular disease. Warned not to take with other NSAIDs including OTC NSAIDs. Related to NSAID Half-Way Use Lifestyle education regarding di et Related to Body mass index (BMI) 40.0-44.9, adult Better with exercise and Eulogio Chi. Pt's global disease score is 1 on a 10 pt scale with VAS of 2. Continue prn celebrex and home excercise/Eulogio Chi. I urged her to restart the exercise. Related to Chronic Back Pain Better with splints. Related to Carpal Tunnel Syndrome Doing well with celebrex. Relate d to Osteoarthritis Of Both Knees Stable. Less pain. L ikely symptoms are a combo of OA, arimidex and neuropathy. Related to Osteoarthritis of Finger Much better. Related to Troch anteric Bursitis Risks of NSAIDs disc ussed including GI upset, GI bleeding, renal and hepatic risks and the risks of cardiovascular disease. Warned not to take with other NSAIDs including OTC NSAIDs. Related to NSAID Perfume Maker Use Dietary management e ducation, guidance, and counseling Related to Body mass index (BMI) 37.0-37.9, adult Doing well with celebrex. Relate d to Osteoarthritis Of Both Knees Better with splints. Related to Carpal Tunnel Syndrome Risks of NSAIDs disc ussed including GI upset, GI bleeding, renal and hepatic risks and the risks of cardiovascular disease. Warned not to take with other NSAIDs including OTC NSAIDs. Related to NSAID Half-Way Use Better. Less pain. L ikely symptoms are a combo of OA, arimidex and neuropathy. Related to Osteoarthritis of Finger A little worse since she stopped working out. Pt's global disease score is 1 on a 10 pt scale with VAS of 5. Continue prn celebrex and home excercise. I urged her to restart the exercise. Related to Chronic Back Pain Much better. Related to Troch anteric Bursitis Better. Less pain. L ikely symptoms are a combo of OA, arimidex and neuropathy. Related to Osteoarthritis of Finger Much better with PT, excercise and weight loss. Pt's global disease score is 2 on a 10 pt scale with VAS of 2. Continue prn celebrex and home excercise. Related to Chronic Back Pain Better with splints. Related to Carpal Tunnel Syndrome Much better. Related to Troch anteric Bursitis Risks of NSAIDs disc ussed including GI upset, GI bleeding, renal and hepatic risks and the risks of cardiovascular disease. Warned not to take with other NSAIDs including OTC NSAIDs. Related to NSAID Perfume Maker Use Assessments Type Assessment Date assessment Carpal Tunnel Syndrome impression Probable assessment Osteoarthritis Of Both Knees Jun impression assessment Osteoarthritis of Finger 2023 impression assessment Chronic Back Pain impression ASSOCIATED WITH SCOL Michael had lumbar surgery with Dr. Foster 07/02. Initially did well. assessment Trochanteric Bursitis impression assessment NSAID Perfume Maker Use impression Meloxicam impression assessment Body mass index [BMI] 37.0-37.9, adult Patient Care Teams Name Effective Dates (start - stop) Status Members No Information
[2023-10-04] MEDS: MORPHINE 4MG/ML SYRINGE 4 MG IV ×4 (15:45→22:22)
[2023-10-04] MEDS: LACTATED RINGERS 1000ML 1,000 ML 999 ML IV (15:46)
[2023-10-04] MEDS: ONDANSETRON 4MG/2ML VIAL 4 MG IV ×2 (15:46→20:30)
[2023-10-04 15:51] LABS: Basophils # 0.1 K/mm3 (0-0.2); Basophils % 0.5 % (0.1-2.0); Eosinophils # 0.1 K/mm3 (0.0-0.4); Eosinophils % 0.7 % (0.1-12.0); Hematocrit 46.4 % (37.0-47.0); Hemoglobin 15.2 g/dL (12.2-16.2); Lymphocytes # 1.6 K/mm3 (0.7-4.5); Lymphocytes % 14.3 % (10-50); Mean Corpuscular HGB Conc 32.9 g/dL (31.8-35.4); Mean Corpuscular Hemoglobin 29.3 pg (27.0-31.2); Mean Platelet Volume 7.7 fl (7.4-10.4); Monocytes # 0.4 K/mm3 (0.1-1.0); Monocytes % 3.7 % (1.7-9.3); Neutrophils # 8.9 K/mm3 (1.8-7.8); Neutrophils % 80.8 % (37.0-80.0); Platelet Count 247 K/mm3 (142-424); Red Blood Count 5.21 M/mm3 (4.20-5.40); Red Cell Distribution Width 14.5 % (11.5-17.5)
[2023-10-04 16:07] LABS: Chloride 99 mmol/L (98-107); Potassium 4.1 mmoL/L (3.5-5.1); Sodium 139 mmol/L (136-145)
[2023-10-04 16:09] LABS: Blood Urea Nitrogen 15 mg/dl (7-17); Creatinine Clearance Estimated 80 mL/min (50-200); Estimated Glomerular Filt Rate 82 ml/min (>60); GFR (African American) 99 ML/MIN (>60)
[2023-10-04 16:10] LABS: Alanine Aminotransferase 25 U/L (12-78); Albumin Level 4.1 g/dl (3.5-5.0); Albumin/Globulin Ratio 1.3 (1.1-1.8); Alkaline Phosphatase 109 U/L (38-126); Anion Gap 8.1 mEq/L (5-15); Aspartate Amino Transferase 33 U/L (14-36); Bilirubin,Total 0.6 mg/dl (0.2-1.3); Calcium 9.7 mg/dl (8.4-10.2); Carbon Dioxide 36 mmol/L (22.0-30.0); Globulin 3.2 g/dL (1.3-3.2); Glucose 146 mg/dl (74-100); Lipase 263 U/L (23-300); Total Protein,Serum 7.3 g/dl (6.3-8.2)
--- NOTE | 2023-10-04 16:15 | PC.NURSE ---
PT GONE TO RAD VIA WHEELCHAIR
[2023-10-04] MEDS: IOPAMIDOL-370 (76%);100ML BOTTLE 75 ML IV (16:27)
[2023-10-04] MEDS: SODIUM CHLORIDE 0.9% 10ML SYR (RAD ONLY) 10 ML IV (16:27)
[2023-10-04 16:54] LABS: Lactic Acid 1.2 mmol/L (0.7-2.1)
[2023-10-04] MEDS: KETOROLAC 30MG/ML VIAL 15 MG IV (17:06)
--- NOTE | 2023-10-04 17:15 | PC.NURSE ---
PT AMBULATORY TO BATHROOM
--- NOTE | 2023-10-04 17:52 | PC.NURSE ---
DR ORTEGA SPEAKING WITH DR IVEY
--- NOTE | 2023-10-04 18:02 | PC.NURSE ---
PT ACCEPTED BY DR BOSS
--- NOTE | 2023-10-04 18:02 | PC.NURSE ---
[facility] aware of admission for SBO to
--- NOTE | 2023-10-04 18:06 | PC.NURSE ---
Admissions notified of admit to room 203 for SBO to . OBS
--- NOTE | 2023-10-04 18:18 | XR_ITS ---
PROCEDURE INFORMATION: Exam: XR Chest Exam date and time: 10/04/2023 6:15 PM Age: 73 years old Clinical indication: Device placement; Ng tube; Additional info: Ng tube placement TECHNIQUE: Imaging protocol: Radiologic exam of the chest. Views: 1 view. COMPARISON: CT ABDOMEN PELVIS W CON 10/04/2023 4:20 PM FINDINGS: Tubes, catheters and devices: NG tube courses midline, catheter side port and tip projecting in the left upper quadrant. Incompletely visualized nerve stimulator device. Lungs: Unremarkable. No consolidation. Pleural spaces: Unremarkable. No pleural effusion. No pneumothorax. Heart/Mediastinum: Unremarkable. No cardiomegaly. Bones/joints: Diffuse degenerative change of the visualized osseous structures. Soft tissues: Left chest wall postsurgical change. IMPRESSION: 1. NG tube as above. 2. No obvious acute cardiopulmonary findings.
--- NOTE | 2023-10-04 18:30 | PC.NURSE ---
Report called to KELLI Garrett
--- NOTE | 2023-10-04 18:30 | PC.NURSE ---
arrived by w/c from ED
--- NOTE | 2023-10-04 18:32 | PC.NURSE ---
14 azeri NG tube placed in right nare secured at 55cm. Waiting for placement confirmation via xray. Patient tolerated well.
[2023-10-04 18:33] VITALS: BP 139/72; PULSE 75; RESP 18; TEMP 37.1; O2SAT 98
[2023-10-04 18:39] VITALS: BP 149/80; PULSE 94; RESP 18; TEMP 36.4; O2SAT 94; BMI 36.2
[2023-10-04] MEDS: Dex 5% in 0.45% NaCl 1,000 ML 50 ML IV (19:54)
[2023-10-04 20:00] VITALS: BP 117/72; PULSE 89; RESP 16; TEMP 36.9; O2SAT 92
--- NOTE | 2023-10-04 20:12 | EXP.ACUTE.PN ---
Subjective *Date: 10/04/23 *Time: 20:12 Interval history: Patient came to ER today with a 1 day history of intense abdominal pain. She has a history of previous bowel obstruction requiring surgery to repair. She states sympotms feel similar to previous episodes. She had 2 bowel movements this morning. CT scan in ER was consistent with a small bowel obstruction. Medical Exam Vital signs and Labs for Last 24 Hours: Vital Signs Temp Pulse Pulse Resp BP BP Pulse Ox 10/04/23 18:39 97.6 F 94 H 18 149/80 H 94 L 10/04/23 18:33 98.7 F 75 18 139/72 10/04/23 15:30 75 158/85 H 97 10/04/23 15:08 98.9 F 74 18 154/83 H 95 O2 Del Method 10/04/23 18:39 Room Air 10/04/23 18:33 Room Air 10/04/23 15:30 Room Air 10/04/23 15:08 Room Air Intake and Output 10/04/23 10/04/23 10/04/23 07:59 15:59 23:59 Other: Weight 225 lb 231 lb 7 oz Patient Weight 10/04/23 23:59 Weight 231 lb 7 oz Laboratory Results - last 24 hr 10/04/23 15:46: WBC 11.0 H, RBC 5.21, Hgb 15.2, Hct 46.4, MCV 89.0, MCH 29.3, MCHC 32.9, RDW 14.5, Plt Count 247, MPV 7.7, Neut % (Auto) 80.8 H, Lymph % (Auto) 14.3, Monroe % (Auto) 3.7, Eos % (Auto) 0.7, Baso % (Auto) 0.5, Neut # (Auto) 8.9 H, Lymph # (Auto) 1.6, Monroe # (Auto) 0.4, Eos # (Auto) 0.1, Baso # (Auto) 0.1, Sodium 139, Potassium 4.1, Chloride 99, Carbon Dioxide 36 H, Anion Gap 8.1, BUN 15, Creatinine 0.70, Estimated Creat Clear 80, Estimated GFR 82, Est GFR ( Amer) 99, Glucose 146 H, Calcium 9.7, Total Bilirubin 0.6, AST 33, ALT 25, Alkaline Phosphatase 109, Total Protein 7.3, Albumin 4.1, Globulin 3.2, Albumin/Globulin Ratio 1.3, Lipase 263 10/04/23 16:29: Lactate 1.2 I & O for Labs for Last 24 Hours: Intake & Output 10/01/23 10/02/23 10/03/23 10/04/23 23:59 23:59 23:59 23:59 Weight 231 lb 7 oz Constitutional: Present no acute distress Comment:: NG tube in place Respiratory: Present normal respiratory effort Cardiac: Present Reg Rate and Rhythm GI: Present soft, tenderness and diminished bowel sounds Extremities: Present normal inspection and full ROM Skin: Present intact; Absent erythema Neuro: Present Grossly Intact and moves all extremities Assessment and Plan *Assessment and plan (1) Bowel obstruction: Status: Acute Qualifiers: Intestinal obstruction type: unspecified Intestinal obstruction extent: unspecified extent Qualified Code(s): K56.609 - Unspecified intestinal obstruction, unspecified as to partial versus complete obstruction Category: Medical Code(s): K56.609 - Unspecified intestinal obstruction, unspecified as to partial versus complete obstruction (2) Diabetes mellitus: Status: Acute Qualifiers: Diabetes mellitus type: type 2 Diabetes mellitus halfway insulin use: unspecified halfway insulin use status Diabetes mellitus complication status: without complication Qualified Code(s): E11.9 - Type 2 diabetes mellitus without complications Category: Medical Code(s): E11.9 - Type 2 diabetes mellitus without complications (3) Hypertension: Status: Acute Qualifiers: Hypertension type: primary hypertension Qualified Code(s): I10 - Essential (primary) hypertension Category: Medical Code(s): I10 - Essential (primary) hypertension Plan Admit to [facility], NG tube, NPO, surgical consultation.
[2023-10-05 02:28] LABS: Microscopic, Urine URINE MICROSCOPIC (MICROSCOPIC)
[2023-10-05 02:33] LABS: Appearance,Urine CLEAR (Clear); Bilirubin,Urine Negative (Negative); Blood, Urine Negative (Negative); Color,Urine YELLOW (Yellow); Glucose,Urine (UA) Negative (Negative); Ketones,Urine TRACE (Negative); Leukocyte Esterase,Urine Negative (Negative); Nitrate,Urine Negative (Negative); PH,Urine 5.5 (5.0-8.5); Protein,Urine Negative (Negative); Specific Gravity, Urine 1.025 (1.005-1.030); Urobilinogen,Urine 0.2 EU/dl (0.2)
[2023-10-05 02:54] LABS: Bacteria,Urine 2+ /lpf; Mucus,Urine 1+ /lpf; Squamous Epithelial Cell,Urine Occasional #/hpf (0-5)
[2023-10-05 04:00] VITALS: BP 126/65; PULSE 103; RESP 16; TEMP 36.9; O2SAT 90; BMI 37.0
--- NOTE | 2023-10-05 07:18 | P.CONS_ITS ---
History of Present Illness *Admission Date: 10/04/23 *Reason for visit:: Bowel obstruction *History of present illness: Patient is a 73-year-old female with complex abdominal surgery history. She had previously undergone total abdominal hysterectomy via midline laparotomy in 2004. She had developed previous ventral hernias requiring repair, details unknown. Most notable was that she had developed a bowel obstruction secondary to apparent hernia in 2009 requiring surgical intervention and prolonged hospital stay at [facility]. She has not had any significant subsequent symptoms consistent with bowel obstruction according to her. However, she had been evaluated in the emergency department in 2021 for abdominal pain. She was in her usual state of health until 10/04/2023 at which time she developed sharp lower abdominal pain. She presented to the emergency department in the afternoon of 10/04/2023 with this abdominal pain, nausea, and vomiting. CT scan revealed a long segment of small bowel with tapering at the mid jejunum into in the left lower quadrant. There is evidence of anastomotic suture chain . This was read as suggestion of anterior abdominal adhesions given lack of fat plane with multiple loops of anterior small bowel. She was admitted for inpatient management and surgical consultation. It should be noted that patient had a CT scan in 2021 when she presented with abdominal pain which revealed mesenteric fat stranding adjacent to previous anastomosis with fluid- filled loops of small bowel. At that time she was manged as an outpatient. She currently has no pain. [facility] Disclaimer: The information contained in this section may have been updated after the patient was seen, as this information can be updated by other users. Medical History (Updated 10/04/23 @ 20:17 by Jose Manuel Garrido MD) Diabetes mellitus Breast cancer Arthritis Spinal cord stimulator status Hyperlipemia Hypertension SBO (small bowel obstruction) Surgical History (Updated 10/04/23 @ 18:30 by Gosia Celeste RN) H/O hernia repair Social History Smoking Status: Current every day smoker alcohol intake: never current occupational status: other Travel in the last 8 weeks: None Meds Home Medications and Allergies Home Medications Medication Instructions Recorded Confirmed Type atenolol 25 mg tablet 25 mg PO DAILY 90 days #90 tabs 07/04/18 10/04/23 History lansoprazole 30 mg capsule,delayed 30 mg PO DAILY 90 days #90 caps 07/04/18 10/04/23 History release montelukast 10 mg tablet 10 mg PO DAILY Allergy symptoms 30 07/04/18 12/30/20 History days #30 tabs sertraline 100 mg tablet 100 mg PO DAILY Depression 90 days 07/04/18 12/30/20 History #180 tabs simvastatin 20 mg tablet 20 mg PO HS 90 days #90 tabs 07/04/18 10/04/23 History gabapentin 800 mg tablet 800 mg PO TID 12/30/20 10/04/23 History lisinopril 10 1 tab PO DAILY 12/30/20 10/04/23 History mg-hydrochlorothiazide 12.5 mg tablet New Prescriptions to Start Prescriptions: Allergies Allergy/AdvReac Type Severity Reaction Status Date / Time No Known Drug Allergies Allergy Unknown Verified 12/14/21 12:03 Exam (Inpt) Vital signs and Labs for Last 24 Hours: Temp Pulse Resp BP Pulse Ox O2 Del Method 98.4 F 103 H 16 126/65 90 L Room Air 10/05/23 04:00 10/05/23 04:00 10/05/23 04:00 10/05/23 04:00 10/05/23 04:00 10/05/23 05:00 Laboratory Results - last 24 hr 10/04/23 15:46: WBC 11.0 H, RBC 5.21, Hgb 15.2, Hct 46.4, MCV 89.0, MCH 29.3, MCHC 32.9, RDW 14.5, Plt Count 247, MPV 7.7, Neut % (Auto) 80.8 H, Lymph % (Auto) 14.3, [place] % (Auto) 3.7, Eos % (Auto) 0.7, Baso % (Auto) 0.5, Neut # (Auto) 8.9 H, Lymph # (Auto) 1.6, [place] # (Auto) 0.4, Eos # (Auto) 0.1, Baso # (Auto) 0.1, Sodium 139, Potassium 4.1, Chloride 99, Carbon Dioxide 36 H, Anion Gap 8.1, BUN 15, Creatinine 0.70, Estimated Creat Clear 80, Estimated GFR 82, Est GFR ( Amer) 99, Glucose 146 H, Calcium 9.7, Total Bilirubin 0.6, AST 33, ALT 25, Alkaline Phosphatase 109, Total Protein 7.3, Albumin 4.1, Globulin 3.2, Albumin/Globulin Ratio 1.3, Lipase 263 10/04/23 16:29: Lactate 1.2 10/05/23 01:46: Urine Color Yellow, Urine Appearance Clear, Urine pH 5.5, Ur Specific [place] 1.025, Urine Protein Negative, Urine Glucose (UA) Negative, Urine Ketones Trace, Urine Blood Negative, Urine Nitrate Negative, Urine Bilirubin Negative, Urine Urobilinogen 0.2, Ur Leukocyte Esterase Negative, Urine RBC 5-10, Urine WBC 3-5, Ur Squamous Epith Cells Occasional, Urine Bacteria 2+, Urine Mucus 1+ I & O for Labs for Last 24 Hours: Intake & Output 10/02/23 10/03/23 10/04/23 10/05/23 11:59 11:59 11:59 11:59 Intake Total 447 / 447 Output Total 600 / 600 Balance -153 / -153 Weight 236 lb 3.2 oz Constitutional: no acute distress Neck: Present normal inspection Cardiac: Present Reg Rate and Rhythm GI: Present soft; Absent distention or tenderness Rectal (female): Present deferred (female): Present deferred Results Labs 10/04/23 15:46 10/04/23 15:46 Labs: Laboratory Results - last 24 hr 10/04/23 15:46: WBC 11.0 H, RBC 5.21, Hgb 15.2, Hct 46.4, MCV 89.0, MCH 29.3, MCHC 32.9, RDW 14.5, Plt Count 247, MPV 7.7, Neut % (Auto) 80.8 H, Lymph % (Auto) 14.3, [place] % (Auto) 3.7, Eos % (Auto) 0.7, Baso % (Auto) 0.5, Neut # (Auto) 8.9 H, Lymph # (Auto) 1.6, [place] # (Auto) 0.4, Eos # (Auto) 0.1, Baso # (Auto) 0.1, Sodium 139, Potassium 4.1, Chloride 99, Carbon Dioxide 36 H, Anion Gap 8.1, BUN 15, Creatinine 0.70, Estimated Creat Clear 80, Estimated GFR 82, Est GFR ( Amer) 99, Glucose 146 H, Calcium 9.7, Total Bilirubin 0.6, AST 33, ALT 25, Alkaline Phosphatase 109, Total Protein 7.3, Albumin 4.1, Globulin 3.2, Albumin/Globulin Ratio 1.3, Lipase 263 10/04/23 16:29: Lactate 1.2 10/05/23 01:46: Urine Color Yellow, Urine Appearance Clear, Urine pH 5.5, Ur Specific [place] 1.025, Urine Protein Negative, Urine Glucose (UA) Negative, Urine Ketones Trace, Urine Blood Negative, Urine Nitrate Negative, Urine Bilirubin Negative, Urine Urobilinogen 0.2, Ur Leukocyte Esterase Negative, Urine RBC 5-10, Urine WBC 3-5, Ur Squamous Epith Cells Occasional, Urine Bacteria 2+, Urine Mucus 1+ Assessment and Plan *Assessment and plan (1) Bowel obstruction: Status: Acute Qualifiers: Intestinal obstruction type: unspecified Intestinal obstruction extent: unspecified extent Qualified Code(s): K56.609 - Unspecified intestinal obstruction, unspecified as to partial versus complete obstruction Category: Medical Code(s): K56.609 - Unspecified intestinal obstruction, unspecified as to partial versus complete obstruction Plan Possible partial bowel obstruction. She may have some degree of chronic bowel obstruction given prior CT scan and history. Certainly no reason or indications at this time for immediate operative intervention. I will see if she can undergo small bowel follow-through.
[2023-10-05 07:30] VITALS: BP 117/67; PULSE 107; RESP 18; TEMP 36.8; O2SAT 95
--- NOTE | 2023-10-05 07:56 | FL_ITS ---
FINAL REPORT CLINICAL HISTORY: .bowel obstruction,abd pain, nausea FINDINGS: SMALL BOWEL SERIES Contrast passes through the small bowel and reaches the colon in 3 hours. There are mildly distended loops of small bowel, probably related to a diffuse ileus. Incidental note is made of a lumbar scoliosis convex to the right measuring 35 degrees. IMPRESSION: Probable ileus. Reviewed, Interpreted and Dictated by Marlo Pereira MD Transcribed by Gabby Bowden Authenticated and [facility]
--- NOTE | 2023-10-05 08:00 | P.HP_ITS ---
History of Present Illness *Admission Date: 10/04/23 *Reason for visit:: Abdominal pain *History of present illness: Ms. Harding is a 73-year-old female with a history of hypertension, Hyperlipidemia, type 2 diabetes mellitus diet-controlled, arthritis, seasonal asthma and prior bowel obstruction who presented to [facility] emergency room after experiencing progressive severe abdominal pain which she describes as wavy. She states she got up yesterday and did her usual routine and actually was out and about in town when the abdominal pain started. She did have 2 normal bowel movements. She states she had a lot of gas and took some Ex-gas. With the abdominal pain she eventually did vomit. She denies seeing any blood or having any diarrhea. She had been doing well up to this point and had been eating as usual. After the pain started she had no further gas. She denies any heartburn. She has had no respiratory issues. With evaluation in the emergency room white count was found to be 11,000. She was given some IV fluids Ketorolac, IV morphine and Zofran. CT scan showed a bowel obstruction. With reassessment in the ER she was noted to have had some improvement after administration of medication but still continued with the abdominal pain. NG tube was placed and she was then admitted for further evaluation and management of the bowel obstruction. This a.m. patient remains n.p.o. with NG tube in place connected to low wall suction. She states she was able to sleep some during the night. She states her abdominal pain is significantly better and almost resolved. She denies any nausea and has not vomited. As per Dr. Love this a.m.: Patient is a 73-year-old female with complex abdominal surgery history. She had previously undergone total abdominal hysterectomy via midline laparotomy in 2004. She had developed previous ventral hernias requiring repair, details unknown. Most notable was that she had developed a bowel obstruction secondary to apparent hernia in 2009 requiring surgical intervention and prolonged hospital stay at [facility]. She has not had any significant subsequent symptoms consistent with bowel obstruction according to her. However, she had been evaluated in the emergency department in 2021 for abdominal pain. She was in her usual state of health until 10/04/2023 at which time she developed sharp lower abdominal pain. She presented to the emergency department in the afternoon of 10/04/2023 with this abdominal pain, nausea, and vomiting. CT scan revealed a long segment of small bowel with tapering at the mid jejunum into in the left lower quadrant. There is evidence of anastomotic suture chain . This was read as suggestion of anterior abdominal adhesions given lack of fat plane with multiple loops of anterior small bowel. She was admitted for inpatient management and surgical consultation. It should be noted that patient had a CT scan in 2021 when she presented with abdominal pain which revealed mesenteric fat stranding adjacent to previous anastomosis with fluid- filled loops of small bowel. At that time she was manged as an outpatient. She currently has no pain. [facility] Disclaimer: The information contained in this section may have been updated after the patient was seen, as this information can be updated by other users. Medical History (Updated 10/04/23 @ 20:17 by Jose Manuel Garrido MD) Diabetes mellitus Breast cancer Arthritis Spinal cord stimulator status Hyperlipemia Hypertension SBO (small bowel obstruction) Surgical History (Updated 10/05/23 @ 08:13 by Gabby Porter APRN) H/O: hysterectomy H/O hernia repair Family History (Updated 10/05/23 @ 08:13 by Gabby Porter APRN) Other Diabetes Social History (Updated 10/05/23 @ 08:14 by Gabby Porter APRN) Smoking Status: Former smoker alcohol intake: never current occupational status: other Travel in the last 8 weeks: None Review of Systems Constitutional Constitutional: Denies frequent falls and Denies headache(s) Eyes Eyes: Denies change in vision ENT Ears, Nose, Mouth, and Throat: Denies dizziness, Denies otalgia, Denies headache(s), Denies nasal congestion, Reports post nasal drip and Denies sore throat *Cardiovascular Cardiovascular: Denies chest pain, Denies dyspnea and Denies leg edema *Respiratory Respiratory: Denies chest congestion, Reports cough (States she always has a cough most likely due to allergies) and Denies dyspnea *Gastrointestinal Gastrointestinal: Reports abdominal pain, Reports bloating, Denies constipation, Denies diarrhea, Denies dyspepsia, Reports excessive flatus, Denies heartburn, Denies hematemesis, Denies loose stools, Denies melena, Reports nausea and Reports vomiting *Genitourinary Genitourinary: Denies difficulty voiding *Musculoskeletal Musculoskeletal: Denies abnormal gait, Reports arthralgias (She has back issues and has a neurostimulator in place) and Reports back pain Comments: States she has arthritis issues in multiple joints *Neurologic Neurologic: Denies abnormal gait, Denies confusion, Denies dizziness, Denies frequent falls and Denies headache(s) Psychiatric Psychiatric: Denies confusion Meds Home Medications and Allergies Home Medications Medication Instructions Recorded Confirmed Type atenolol 25 mg tablet 25 mg PO DAILY 90 days #90 tabs 07/04/18 10/04/23 History lansoprazole 30 mg capsule,delayed 30 mg PO DAILY 90 days #90 caps 07/04/18 10/04/23 History release simvastatin 20 mg tablet 20 mg PO HS 90 days #90 tabs 07/04/18 10/04/23 History gabapentin 800 mg tablet 800 mg PO TID 12/30/20 10/04/23 History lisinopril 10 1 tab PO DAILY 12/30/20 10/04/23 History mg-hydrochlorothiazide 12.5 mg tablet duloxetine 60 mg capsule,delayed 60 mg PO DAILY 10/05/23 10/05/23 History release New Prescriptions to Start Prescriptions: Allergies Allergy/AdvReac Type Severity Reaction Status Date / Time No Known Drug Allergies Allergy Unknown Verified 12/14/21 12:03 Exam Data for Last 24 hours Vital signs and Labs for Last 24 Hours: Temp Pulse Resp BP Pulse Ox O2 Del Method 98.2 F 107 H 18 117/67 95 Room Air 10/05/23 07:30 10/05/23 07:30 10/05/23 07:30 10/05/23 07:30 10/05/23 07:30 10/05/23 07:30 Laboratory Results - last 24 hr 10/04/23 15:46: WBC 11.0 H, RBC 5.21, Hgb 15.2, Hct 46.4, MCV 89.0, MCH 29.3, MCHC 32.9, RDW 14.5, Plt Count 247, MPV 7.7, Neut % (Auto) 80.8 H, Lymph % (Auto) 14.3, [place] % (Auto) 3.7, Eos % (Auto) 0.7, Baso % (Auto) 0.5, Neut # (Auto) 8.9 H, Lymph # (Auto) 1.6, [place] # (Auto) 0.4, Eos # (Auto) 0.1, Baso # (Auto) 0.1, Sodium 139, Potassium 4.1, Chloride 99, Carbon Dioxide 36 H, Anion Gap 8.1, BUN 15, Creatinine 0.70, Estimated Creat Clear 80, Estimated GFR 82, Est GFR ( Amer) 99, Glucose 146 H, Calcium 9.7, Total Bilirubin 0.6, AST 33, ALT 25, Alkaline Phosphatase 109, Total Protein 7.3, Albumin 4.1, Globulin 3.2, Albumin/Globulin Ratio 1.3, Lipase 263 10/04/23 16:29: Lactate 1.2 10/05/23 01:46: Urine Color Yellow, Urine Appearance Clear, Urine pH 5.5, Ur Specific [place] 1.025, Urine Protein Negative, Urine Glucose (UA) Negative, Urine Ketones Trace, Urine Blood Negative, Urine Nitrate Negative, Urine Bilirubin Negative, Urine Urobilinogen 0.2, Ur Leukocyte Esterase Negative, Urine RBC 5-10, Urine WBC 3-5, Ur Squamous Epith Cells Occasional, Urine Bacteria 2+, Urine Mucus 1+ I & O for Last 24 hours: Intake & Output 10/02/23 10/03/23 10/04/23 10/05/23 11:59 11:59 11:59 11:59 Intake Total 447 / 447 Output Total 600 / 600 Balance -153 / -153 Weight 236 lb 3.2 oz Constitutional Constitutional: no acute distress Comments: Appears comfortable lying in bed. NG tube in place to low wall suction *Routine HEENT Exam Head: Present normocephalic and atraumatic Eye: Present PERRL; Absent conjunctival icterus, scleral injection or conjunctivae pink ENT: Present mucous membranes dry and oropharynx clear *Routine Neck Exam Neck: Present supple; Absent carotid bruit, lymphadenopathy or thyromegaly *Routine Respiratory Exam Respiratory: Present CTA bilaterally (Anteriorly and posteriorly) *Routine Cardiovascular Exam Cardiovascular: Present RRR *Routine Abdominal Exam Abdominal: Present soft, tenderness (Mid abdominal tenderness), obese and surgical scars; Absent normoactive bowel sounds or guarding *Routine Rectal Exam Rectal:: deferred *Routine Genitalia Exam Genitalia:: deferred *Routine Extremities Exam Extremities: Present pulses intact; Absent edema or calf tenderness *Routine Neurological Exam Neurological: Present alert, oriented X3 and normal speech Assessment and Plan *Assessment and plan (1) Bowel obstruction: Status: Acute Qualifiers: Intestinal obstruction extent: unspecified extent Intestinal obstruction type: unspecified Qualified Code(s): K56.609 - Unspecified intestinal obstruction, unspecified as to partial versus complete obstruction Category: Medical Code(s): K56.609 - Unspecified intestinal obstruction, unspecified as to partial versus complete obstruction (2) Abdominal pain: Status: Acute Category: Medical Code(s): R10.9 - Unspecified abdominal pain (3) Diabetes mellitus: Status: Acute Qualifiers: Diabetes mellitus complication status: without complication Diabetes mellitus terminal makeup operator insulin use: unspecified [facility] insulin use status Diabetes mellitus type: type 2 Qualified Code(s): E11.9 - Type 2 diabetes mellitus without complications Category: Medical Code(s): E11.9 - Type 2 diabetes mellitus without complications (4) Hypertension: Status: Acute Qualifiers: Hypertension type: primary hypertension Qualified Code(s): I10 - Essential (primary) hypertension Category: Medical Code(s): I10 - Essential (primary) hypertension Plan Continue with IV fluids, GI rest, and NG tube. Patient has been seen by Dr. Kate mccann [email or web address] feels she may have some degree of chronic bowel obstruction given prior CT scan and history with no reason or indication for immediate operative intervention at this time. He will possibly order a small bowel follow through. Dr. Garrido entry - Saw patient, agree with above note.
--- OUTSIDE RECORDS SUMMARY | 2023-10-05 08:11 | XMS_ITS | Continuity of Care Document ---
Author Name Unknown Organization [facility] Address [address] [place] [phone] Phone Care Team Providers Care Utility Tender Carding Name Role Phone Zachery Perdomo MD Unavailable [...] 03:08:00 4.95 x10E6/uL 3.77-5.28 Final Performed by:Glory OCONNOR) Hemoglobin 03:08:00 14.4 g/dL 11.1-15.9 Final Performed by:Glory OCONNOR) Hematocrit 03:08:00 42.1 % 34.0-46.6 Final Performed by:Glory OCONNOR) MCV 03:08:00 85 fL 79-97 Final Performed by:Glory OCONNOR) MCH 03:08:00 29.1 pg 26.6-33.0 Final Performed by:Glory OCONNOR) MCHC 03:08:00 34.2 g/dL 31.5-35.7 Final Performed by:Glory OCONNOR) RDW 03:08:00 13.1 % 11.7-15.4 Final Performed [...] on Encounter Office Visit Level IV [facility] [address] [facility], [place], [place], [id number], tel:[phone] [facility] Follow Up of Osteoarthriti s (chief complaint) Carpal Tunnel SyndromeOste oarthritis Of Both KneesOsteoar thritis of FingerChroni c Back PainTrochant franklin BursitisNSAI D Longterm UseBody mass index (BMI) 37.0-37.9, adult 4 Conor Bingham. [address] [facility], [address], [place], [place], [id number]. tel:[phone] Referring Provider: Jose Mnauel Garrido MD T, [address], [place], [address]. tel:[phone] [facility] SRVC 20 MIN [facility] [address] [facility] [facility], [place], [place], [id number], [place] tel:[phone] [facility] No Information 4 Conor Bingham. [address], Suite [facility], [place], [place], [id number]. tel:[phone] Referring Provider: Jose Manuel Chwodary, [address] [place] [address] [address], [place], [address]. tel:[phone] CHRON C[facility] MGMT SRVC 20 MIN [facility] [address], [id number], [place] tel:[phone] [facility] No Information 3 Conor Bingham. [address], [place] [address], [place], [place], [id number]. tel:[phone] Referring Provider: Jose Manuel Chowdary, [facility], [address], [place], [address]. tel:[phone] CHRON C[facility] MGMT SRVC 20 MIN [facility] [address], [id number], [place] tel:[phone] [facility] No Information 3 Conor Bingham. [address], [place] [address], [place], [place], [id number]. tel:[phone] Referring Provider: Jose Manuel Chowdary, [address], [address]. tel:[phone] Office Visit Level IV [facility] [address], [id number], [place] tel:[phone] [facility] Follow Up of Osteoarthriti s (chief complaint) Carpal Tunnel SyndromeOste oarthritis Of Both KneesOsteoar thritis of FingerChroni c Back PainTrochant franklin BursitisNSAI D Safety Patrol Officer UseBody mass index (BMI) 36.0-36.9, adult 2 Francis Doreenva. [address], [address], [place], [place], [address]. tel:[phone] Referring Provider: Jose Manuel Chowdary, [address], [place], [address]. tel:[phone] CHRON CARE MGMT SRVC 20 MIN [facility] [address], [id number], tel:[phone] [facility] No Information 2 Conor Bingham. [address], [facility] 100, [place], [place], [id number]. tel:[phone] Referring Provider: Jose Manuel Chowdary, [facility], 1929[address] [address], [place], [address]. tel:[phone] Office Visit Level IV [facility] [address] [address], [place], [place], [id number], [place] tel:[phone] [facility] Osteoarthriti s (chief complaint) Carpal Tunnel SyndromeOste oarthritis Of Both KneesOsteoar thritis of FingerChroni c Back PainTrochant franklin BursitisNSAI D Longterm UseBody mass index (BMI) 39.0-39.9, adult 2 Conor Bingham. [address], [facility] 100[place], [place], [id number]. tel:[phone] Referring Provider: Jose Manuel Chowdary, [facility], [address], [place], [address]. tel:[phone] CHRON CARE MGMT SRVC 20 MIN [facility] [address], [id number], [place] tel:[phone] [facility] No Information 2 Conor Bingham. [address], [place] [address], [place], [place], [id number]. tel:[phone] Referring Provider: Jose Manuel Chowdary, [address] [place], [place] [address]y [address], [address]. tel:[phone] [facility] SRVC 20 MIN [facility] [address], [id number], [place] tel:[phone] [facility] No Information 2 Conor Bingham. [address], [place] [address], [place], [place], [id number]. tel:[phone] Referring Provider: Jose Manuel Chowdary, [address] [place], [place] [address] [address], [address]. tel:[phone] [facility] SRVC 20 MIN [facility] [address], [id number], [place] tel:[phone] [facility] No Information 2 Conor Bingham. [address], [id number]. tel:[phone] Referring Provider: Jose Manuel Chowdary, [address] [place], [place] [address] [address], [address]. tel:[phone] Office Visit Level IV [facility] [address], [id number], [place] tel:[phone] [facility] Osteoarthriti s (chief complaint) Carpal Tunnel SyndromeOste oarthritis Of Both KneesOsteoar thritis of FingerChroni c Back PainTrochant franklin BursitisBody mass index (BMI) 40.0-44.9, adultNSAID Safety Patrol Officer Use Dec-0 1 Francis Sue. [address], [address], [place], [address]. tel:[phone] Referring Provider: Jose Manuel Chowdary, [address] [place] [address] [address], [place], [address]. tel:[phone] Office Visit Level IV [facility], [address] [place] [address], [id number], tel:[phone] [facility]. Osteoarthriti s (chief complaint) Carpal Tunnel SyndromeOste oarthritis Of Both KneesOsteoar thritis of FingerChroni c Back PainTrochant franklin BursitisBody mass index (BMI) 40.0-44.9, adultNSAID Safety Patrol Officer Use Nov- 1 Conor Bingham. [address], [address], [id number]. tel:[phone] Referring Provider: Jose Manuel Chowdary, [address] [place] [address] [address], [address]. tel:[phone] Office Visit Level III [facility], [address] [place] [address], [id number], tel:[phone] [facility]. Osteoarthriti s (chief complaint) Body mass index (BMI) 40.0-44.9, adultCarpal Tunnel SyndromeOste oarthritis Of Both KneesOsteoar thritis of FingerChroni c Back PainTrochant franklin BursitisNSAI D Longterm Use 0 Ivy Carter. [address], [facility] 100[place], [place], [id number]. tel:[phone] Referring Provider: Jose Manuel Chowdary, [facility], [address], [place], [address]. tel:[phone] Office Visit Level IV [facility], [address] [place] [address] [place], [id number], [place] tel:[phone] [facility]. Osteoarthriti s (chief complaint) Carpal Tunnel SyndromeOste oarthritis Of Both KneesOsteoar thritis of FingerChroni c Back PainTrochant franklin BursitisNSAI D Longterm Use 0 Conor Bingham. [address], [place] [address], [place], [place], [id number]. tel:[phone] Referring Provider: Jose Manuel Chowdary, [address], [place], [address]. tel:[phone] [facility], [address], [id number], [place] tel:[phone] [facility]. No Information 0 Ivy Carter. [address], [place] [address], [place], [place], [id number]. tel:[phone] Office Visit Level III [facility], [address] [address], [place], [place], [id number], [place] tel:[phone] [facility] Oste[facility]riti s (chief complaint) Carpal Tunnel SyndromeOste oarthritis Of Both KneesOsteoar thritis of FingerChroni c Back PainTrochant franklin BursitisBody mass index (BMI) 39.0-39.9, adultNSAID Longterm Use 9 Ivy Carter. [address], [facility] 100, [place], [place], [id number]. tel:[phone] Referring Provider: Jose Manuel Chowdary, [address], [place], [address]. tel:[phone] [facility] [address] [address], [place], [place], [id number], [place] tel:[phone] [facility] Osteoarthriti s (chief complaint) Carpal Tunnel SyndromeOste oarthritis Of Both KneesOsteoar thritis of FingerChroni c Back PainTrochant franklin BursitisNSAI D Longterm UseBody mass index (BMI) 39.0-39.9, adult May-0 6-201 9 Conor Bingham. [address], [address], [place], [place], [id number]. tel:[phone] Referring Provider: Jose Manuel Garrido MD T, [facility], 1929[address] [address], [address]. tel:[phone] Office Visit Level IV [facility] [address], [id number], tel:[phone] [facility] Osteoarthriti s (chief complaint) Carpal Tunnel SyndromeOste oarthritis Of Both KneesOsteoar thritis of FingerChroni c Back PainTrochant franklin BursitisNSAI D Safety Patrol Officer UseBody mass index (BMI) 40.0-44.9, adult Apr-0 1-201 8 Ivy Carter. [address], [address], [place], [place], [id number]. tel:[phone] Referring Provider: Jose Manuel Chowdary, [address], [place], [address]. tel:[phone] Office Visit Level IV [facility] [address] [facility] [address] [place] [address], [id number], [place] tel:[phone] [facility] [address] Osteoarthriti s (chief complaint) Carpal Tunnel SyndromeOste oarthritis Of Both KneesOsteoar thritis of FingerChroni c Back PainTrochant franklin BursitisNSAI D Safety Patrol Officer UseBody mass index (BMI) 37.0-37.9, adult May-0 1-201 8 Conorfranchesca Bingham. [address], [address], [place], [place], [id number]. tel:[phone] Referring Provider: Jose Manuel Chowdary, [address], [place], [address]. tel:[phone] Office Visit Level IV [facility] [address] [place] [address], [id number], tel:[phone] [facility] Osteoarthriti s (chief complaint) Carpal Tunnel SyndromeOste oarthritis of FingerChroni c Back PainTrochant franklin BursitisNSAI D Safety Patrol Officer UseOsteoarth ritis Of Both Knees 7 Conorfranchesca Bingham. [address], [id number]. tel:[phone] Referring Provider: Jose Manuel Chowdary, [facility], [address], [place], [address]. tel:[phone] [facility] [address] [place] [address], [id number], [place] tel:[phone] [facility] NSAID Safety Patrol Officer UseTrochante bipin BursitisCarp al Tunnel SyndromeOste oarthritis of FingerChroni c Back Pain 7 Conor Bingham. [address] [address], [place], [place], [id number]. tel:[phone] Office Visit Level IV [facility] [address] [place] [address], [id number], [place] tel:[phone] [facility] No Information 7 Conor Bingham. [address] [place] [address], [id number]. tel:[phone] Referring Provider: Jose Manuel Chowdary, [address], [place], [address]. tel:[phone] Family History Family Member Type Diagnosis Age [...] Provider Payers Payer name Insurance type Covered democrat ID Authoriza tidimas(s) Medicare [id number] [id number] Social History Type Description Quantity Date Captured [...] Future Order: Lab Order CBC With Differential/Platelet ([id number]), Sent on: Sent Future Order: Lab Order Comp. Me tabolic Panel (14) ([id number]), Sent on: Sent Future Order: Lab Order CBC With Differential/Platelet ([id number]), Ordered on: Ordered Future Order: Lab Order Comp. Me tabolic Panel (14) ([id number]), Ordered on: Ordered Future Order: Lab Order CBC With Differential/Platelet ([id number]), Ordered on: Ordered Future Order: Lab Order Comp. Me tabolic Panel (14) ([id number]), Ordered on: Ordered Future Order: Lab Order CBC With Differential/Platelet ([id number]), Ordered on: Ordered Future Order: Lab Order Comp. Me tabolic Panel (14) ([id number]), Ordered on: Ordered Future Order: Lab Order CBC With Differential/Platelet ([id number]), Ordered on: Ordered Future Order: Lab Order Comp. Me tabolic Panel (14) ([id number]), Ordered on: Ordered Future Order: Lab Order CBC With Differential/Platelet ([id number]), Ordered on: Ordered Future Order: Lab Order Comp. Il tabolic Panel (14) ([id number]), Ordered on: Ordered Future Order: Lab Order CBC With Differential/Platelet ([id number]), Ordered on: Ordered Future Order: Lab Order Comp. Il tabolic Panel (14) ([id number]), Ordered on: Ordered Future Order: Lab Order CBC With Differential/Platelet ([id number]), Ordered on: Ordered Future Order: Lab Order Comp. Il tabolic Panel (14) ([id number]), Ordered on: Ordered Future Order: Radiology Order Mona mbar Spine MRI WITHOUT Contrast ([id number]), Ordered on: Ordered Future Order: Lab Order CBC With Differential/Platelet ([id number]), Ordered on: Ordered Future Order: Lab Order Comp. Il tabolic Panel (14) ([id number]), Ordered on: Ordered Future Order: Lab Order CBC With Differential/Platelet ([id number]), Ordered on: Ordered Future Order: Lab Order Comp. Il tabolic Panel (14) ([id number]), Ordered on: Ordered Future Order: Lab Order CBC With Differential/Platelet ([id number]), Ordered on: Ordered Future Order: Lab Order Comp. Me tabolic Panel (14) ([id number]), Ordered on: Ordered History Of Present Illness [...] 4/10 Instructions Date Instruction Additional Infor erika She follows with Dr Chairez and Dr Colon. She had a spinal stimulator placed and this has been somewhat helpfulShe would like to restart meloxicam. VAS 3/10, global 3/10Labs today. Recheck in 6 months. Related to Chronic Back Pain Uses splints PRNThes e symptoms have both resolved Related to Carpal Tunnel Syndrome Risks of NSAIDs disc ussed including GI upset, GI bleeding, renal and hepatic risks and the risks of cardiovascular disease. Warned not to take with other NSAIDs including OTC NSAIDs Related to NSAID Safety Patrol Officer Use Stable and acceptable Related to Osteoarthritis Of Both Knees Stable Related to Osteo arthritis of Finger Resolved Related to Troch anteric Bursitis Lifestyle education regarding di et Related to [...] NSAIDs including OTC NSAIDs Related to NSAID Safety Patrol Officer Use Stable and acceptable Related to Osteoarthritis Of Both Knees Stable Related to Osteo arthritis of Finger She follows with Dr Chairez and Dr Colon. She recently had a spinal stimulator placed [...] to Body mass index [BMI] 36.0-36.9, adult Resolved. Related to Troch anteric Bursitis Uses splints PRNThes e symptoms have both resolved Related to Carpal Tunnel Syndrome She follows with Dr Chairez and Dr Colon. She is planning spinal stimulator. VAS 02/21Global 09/21I will RF Mobic. She feels it helps. PCP writes her gabapentin. She is currently taking 1800mg/day.She takes Cymbalta for pain. .Labs today. New order providedF/u 6 months Related to Chronic Back Pain Continue meloxicamRi sks of NSAIDs discussed including GI upset, GI bleeding, renal and hepatic risks and the risks of cardiovascular disease. Warned not to take with other NSAIDs including OTC NSAIDs Related to NSAID Safety Patrol Officer Use Stable and acceptable. NSAIDs he lpful Related to Osteoarthritis Of Both Knees Stable Related to Osteo arthritis of Finger Lifestyle education regarding di et Related to Body mass index [BMI] 39.0-39.9, adult Continue meloxicamRi sks of NSAIDs discussed including GI upset, GI bleeding, renal and hepatic risks and the risks of cardiovascular disease. Warned not to take with other NSAIDs including OTC NSAIDs Related to NSAID Safety Patrol Officer Use Uses splints PRNThes e symptoms have both resolved Related to Carpal Tunnel Syndrome She follows with Dr Chairez. She has done PT. This was helpfulVAS 11/21Global 11/21PCP writes her gabapentin. She is currently taking 1800mg/day.She was started on Cymbalta in the interim.Mobic is still helpful. Labs today. New order providedF/u 6 months Related to Chronic Back Pain Not bothering her anymore Relate d to Trochanteric Bursitis Pain can be limiting but overall doing well. NSAIDs helpful Related to Osteoarthritis Of Both Knees Stable Related to Osteo arthritis of Finger Lifestyle education regarding di et Related to Body mass index [BMI] 40.0-44.9, adult Better with splints. Related to Carpal Tunnel Syndrome Much better. Related to Troch anteric Bursitis Better since PT with Dr Foster. . VAS 6/10Global 10PCP writes her gabapentin. She is currently taking 1800mg/day.Mobic is still helpful. Labs today. F/u 6 months. Related to Chronic Back Pain Risks of NSAIDs disc ussed including GI upset, GI bleeding, renal and hepatic risks and the risks of cardiovascular disease. Warned not to take with other NSAIDs including OTC NSAIDs. Related to NSAID Longterm Use Pain can be limiting but overall doing well. NSAIDs help. 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 Related to Osteo arthritis of Finger Lifestyle education regarding di et Related to Body mass index [BMI]40.0-44.9, adult Much better. Related to Troch anteric Bursitis Stable. Related to Osteo arthritis of Finger Better with splints. Related to Carpal Tunnel Syndrome Risks of NSAIDs disc ussed including GI upset, GI bleeding, renal and hepatic risks and the risks of cardiovascular disease. Warned not to take with other NSAIDs including OTC NSAIDs. Related to NSAID Longterm Use Pain can be limiting but overall doing well. NSAIDs help. Related to Osteoarthritis Of Both Knees Having more bilatera l radicular s/s. Has [...] Stable. Related to Osteo arthritis of Finger Increased right radi cular pain with standing. [...] NSAIDs including OTC NSAIDs. Related to NSAID Safety Patrol Officer Use Overall doing well.NSAIDs help. Related to Osteoarthritis Of Both Knees Pain can be limiting but overall doing well. VAS and pt global are 5/10. NSAIDs help. Related to Osteoarthritis Of Both Knees Better with splints. Related to Carpal Tunnel Syndrome Stable. Related to Osteo arthritis of Finger [...] NSAIDs including OTC NSAIDs. Related to NSAID Longterm Use Lifestyle education regarding di et Related to Body mass index (BMI) 39.0-39.9, adult Much better. Related to Troch anteric Bursitis Better with splints. Related to Carpal Tunnel Syndrome Pain can be limiting but overall doing well. VAS and pt global are 2/10. NSAIDs help. Related to Osteoarthritis Of Both Knees Better since surgery 07/02. No more radicular/spinal stenosis symptoms. Related to Chronic Back Pain Risks of NSAIDs disc ussed including GI upset, GI bleeding, renal and hepatic risks and the risks of cardiovascular disease. Warned not to take with other NSAIDs including OTC NSAIDs. Related to NSAID Longterm Use Stable. Related to Osteo arthritis of Finger Lifestyle education regarding di et Related to Body mass index (BMI) 39.0-39.9, adult Pain increased over the past 2 months after fall. She has continued exercises and Eulogio Chi She doesn't feel Celebrex is as helpfullast MRI with Dr. Colon in 2015. Injections per Colleen were not beneficial then. Repeat MRIDiscussed pending results will determine if she needs to see NS vs. new pain tx. Change NSAID to Mobic Related to Chronic Back Pain Stable. Related to Osteo arthritis of Finger Much better. Related to Troch anteric Bursitis Better with splints. Related to Carpal Tunnel Syndrome Stable Related to Osteo arthritis Of Both Knees Risks of NSAIDs disc ussed including GI upset, GI bleeding, renal and hepatic risks and the risks of cardiovascular disease. Warned not to take with other NSAIDs including OTC NSAIDs. Related to NSAID Longterm Use Lifestyle education regarding di et Related [...] and neuropathy. Related to Osteoarthritis of Finger Risks of NSAIDs disc ussed including GI upset, GI bleeding, renal and hepatic risks and the risks of cardiovascular disease. Warned not to take with other NSAIDs including OTC NSAIDs. Related to NSAID Longterm Use Much better. Related to Troch anteric Bursitis Dietary management e ducation, guidance, and counseling Related to Body mass index (BMI) 37.0-37.9, adult Doing well with celebrex. Relate d to Osteoarthritis Of Both Knees A little worse since she stopped working out. Pt's global disease score is 1 on a 10 pt scale with VAS of 5. Continue prn celebrex and home excercise. I urged her to restart the exercise. Related to Chronic Back Pain Much better. Related to Troch anteric Bursitis Better with splints. Related to Carpal Tunnel Syndrome Risks of NSAIDs disc ussed including GI upset, GI bleeding, renal and hepatic risks and the risks of cardiovascular disease. Warned not to take with other NSAIDs including OTC NSAIDs. Related to NSAID Safety Patrol Officer Use Better. Less pain. L ikely symptoms are a combo of OA, arimidex and neuropathy. Related to Osteoarthritis of Finger Much better with PT, excercise and weight loss. Pt's global disease score is 2 on a 10 pt scale with VAS of 2. Continue prn celebrex and home excercise. Related to Chronic Back Pain Better. Less pain. L ikely symptoms are a combo of OA, arimidex and neuropathy. Related to Osteoarthritis of Finger Much better. Related to Troch anteric Bursitis Better with splints. Related to Carpal Tunnel Syndrome Risks of NSAIDs disc ussed including GI upset, GI bleeding, renal and hepatic risks and the risks of cardiovascular disease. Warned not to take with other NSAIDs including OTC NSAIDs. Related to NSAID Safety Patrol Officer Use Assessments Type Assessment Date assessment Carpal Tunnel Syndrome impression Probable assessment Osteoarthritis Of Both Knees Jun impression assessment Osteoarthritis of Finger 2023 impression assessment Chronic Back Pain impression ASSOCIATED WITH SCOL Michael had lumbar surgery with Dr. Foster 07/02. Initially did well. assessment Trochanteric Bursitis impression assessment NSAID Safety Patrol Officer Use impression Meloxicam impression assessment Body mass index [BMI] 37.0-37.9, adult Patient Care Teams Name Effective Dates (start - stop) Status Members No Information
--- NOTE | 2023-10-05 08:31 | HMH.PHAINT1 ---
Pharmacy Intervention Comments: HOME MEDICATION LIST VERIFIED VIA OUTSIDE PHARMACY AND PATIENT
[2023-10-05] MEDS: ONDANSETRON 4MG/2ML VIAL 4 MG IV (08:58)
[2023-10-05] MEDS: KETOROLAC 30MG/ML VIAL 15 MG IV ×2 (09:01→19:47)
[2023-10-05] MEDS: Dex 5% in 0.45% NaCl 1,000 ML 50 ML IV (11:27)
[2023-10-05] MEDS: DIATRIZOATE MEGLUMINE(GASTROGRAFIN) 66%-10% 120ML 120 ML PO ×3 (12:26)
--- NOTE | 2023-10-05 15:11 | EXP.SURG.PN ---
Subjective Narrative: Patient states that she feels much better. She did undergo small bowel follow-through. Report is still pending but this appears to show contrast through her left colon. She has had a couple of liquid bowel movements. Interestingly she does state that she had some vomiting when contrast was given however. Exam Data for Last 24 hours Vital signs and Labs for Last 24 Hours: Temp Pulse Resp BP Pulse Ox O2 Del Method 98.2 F 107 H 18 117/67 95 Room Air 10/05/23 07:30 10/05/23 07:30 10/05/23 07:30 10/05/23 07:30 10/05/23 07:30 10/05/23 07:30 Laboratory Results - last 24 hr 10/04/23 15:46: WBC 11.0 H, RBC 5.21, Hgb 15.2, Hct 46.4, MCV 89.0, MCH 29.3, MCHC 32.9, RDW 14.5, Plt Count 247, MPV 7.7, Neut % (Auto) 80.8 H, Lymph % (Auto) 14.3, [place] % (Auto) 3.7, Eos % (Auto) 0.7, Baso % (Auto) 0.5, Neut # (Auto) 8.9 H, Lymph # (Auto) 1.6, [place] # (Auto) 0.4, Eos # (Auto) 0.1, Baso # (Auto) 0.1, Sodium 139, Potassium 4.1, Chloride 99, Carbon Dioxide 36 H, Anion Gap 8.1, BUN 15, Creatinine 0.70, Estimated Creat Clear 80, Estimated GFR 82, Est GFR ( Amer) 99, Glucose 146 H, Calcium 9.7, Total Bilirubin 0.6, AST 33, ALT 25, Alkaline Phosphatase 109, Total Protein 7.3, Albumin 4.1, Globulin 3.2, Albumin/Globulin Ratio 1.3, Lipase 263 10/04/23 16:29: Lactate 1.2 10/05/23 01:46: Urine Color Yellow, Urine Appearance Clear, Urine pH 5.5, Ur Specific [place] 1.025, Urine Protein Negative, Urine Glucose (UA) Negative, Urine Ketones Trace, Urine Blood Negative, Urine Nitrate Negative, Urine Bilirubin Negative, Urine Urobilinogen 0.2, Ur Leukocyte Esterase Negative, Urine RBC 5-10, Urine WBC 3-5, Ur Squamous Epith Cells Occasional, Urine Bacteria 2+, Urine Mucus 1+ I & O for Last 24 hours: Intake & Output 10/03/23 10/04/23 10/05/23 10/06/23 11:59 11:59 11:59 11:59 Intake Total 447 / 447 335 / 335 Output Total 600 / 600 Balance -153 / -153 335 / 335 Weight 236 lb 3.2 oz Progress Note: A&P Assessment and plan (1) Bowel obstruction: Status: Acute Assessment and plan: I will place her NG tube to gravity bag. Plan for a follow-up film tomorrow. If this shows continued improvement and she tolerates her NG to gravity drain may be able to remove this tomorrow. (2) Abdominal pain: Status: Acute (3) Diabetes mellitus: Status: Acute (4) Hypertension: Status: Acute
[2023-10-05 16:00] VITALS: BP 122/61; PULSE 98; RESP 18; TEMP 36.5; O2SAT 90
--- NOTE | 2023-10-05 19:04 | PC.NURSE ---
Patient has had 3 bowel movements this shift and NG tube hooked to gravity. Patient states being less nauseous at this time.
[2023-10-05] MEDS: SODIUM CHLORIDE 0.9% 10ML FLUSH SYRINGE 10 ML IV (19:47)
[2023-10-05 20:00] VITALS: BP 135/68; PULSE 107; RESP 16; TEMP 36.9; O2SAT 91
[2023-10-05] MEDS: ACETAMINOPHEN 1,000 MG/100 ML ML 400 MG IV (22:43)
[2023-10-06 04:00] VITALS: BP 133/73; PULSE 89; RESP 16; TEMP 36.6; O2SAT 93; BMI 35.9
--- NOTE | 2023-10-06 06:00 | XR_ITS ---
FINAL REPORT CLINICAL HISTORY: BOWEL OBSTRUCTION COMPARISON: None FINDINGS: Chest: The heart and mediastinal within normal limits. There is atelectasis at the right lung base. There is no pneumothorax. Osseous structures are unremarkable. Abdomen: AP and upright views of the abdomen were obtained. Contrast is seen within a nondistended colon. There are no findings to suggest complete small bowel obstruction. No abnormal calcifications are identified. There is 30 degrees of lumbar scoliosis convex to the right. IMPRESSION: No acute cardiopulmonary process. Contrast entirely within the colon. No evidence of complete small bowel obstruction. Reviewed, Interpreted and Dictated by Marlo Pereira MD Transcribed by Kassandra Marx Authenticated and [facility]
[2023-10-06 07:01] LABS: Basophils % 0.4 % (0.1-2.0); Eosinophils # 0.1 K/mm3 (0.0-0.4); Eosinophils % 1.1 % (0.1-12.0); Hematocrit 40.3 % (37.0-47.0); Hemoglobin 13.3 g/dL (12.2-16.2); Lymphocytes # 1.7 K/mm3 (0.7-4.5); Lymphocytes % 23.6 % (10-50); Mean Corpuscular Hemoglobin 29.6 pg (27.0-31.2); Mean Corpuscular Volume 89.8 fl (81-99); Monocytes # 0.5 K/mm3 (0.1-1.0); Monocytes % 6.8 % (1.7-9.3); Neutrophils % 68.1 % (37.0-80.0); Platelet Count 194 K/mm3 (142-424); Red Blood Count 4.49 M/mm3 (4.20-5.40); Red Cell Distribution Width 14.5 % (11.5-17.5); White Blood Count 7.3 K/mm3 (4.8-10.8)
[2023-10-06 07:07] LABS: Chloride 101 mmol/L (98-107); Potassium 3.6 mmoL/L (3.5-5.1); Sodium 138 mmol/L (136-145)
[2023-10-06 07:10] LABS: Anion Gap 4.6 mEq/L (5-15); Blood Urea Nitrogen 22 mg/dl (7-17); Calcium 8.5 mg/dl (8.4-10.2); Carbon Dioxide 36 mmol/L (22.0-30.0); Creatinine Clearance Estimated 81 mL/min (50-200); Estimated Glomerular Filt Rate 82 ml/min (>60); GFR (African American) 99 ML/MIN (>60); Glucose 124 mg/dl (74-100)
--- NOTE | 2023-10-06 07:54 | P.PN_ITS ---
Subjective Patient reports: no new complaints, feels better, flatus and bowel movement Exam Data for Last 24 hours Vital signs and Labs for Last 24 Hours: Temp Pulse Resp BP Pulse Ox O2 Del Method 97.9 F 89 16 133/73 93 L Room Air 10/06/23 04:00 10/06/23 04:00 10/06/23 04:00 10/06/23 04:00 10/06/23 04:00 10/06/23 07:00 Laboratory Results - last 24 hr 10/06/23 06:16: WBC 7.3 D, RBC 4.49, Hgb 13.3, Hct 40.3, MCV 89.8, MCH 29.6, MCHC 33.0, RDW 14.5, Plt Count 194, MPV 8.0, Neut % (Auto) 68.1, Lymph % (Auto) 23.6, [place] % (Auto) 6.8, Eos % (Auto) 1.1, Baso % (Auto) 0.4, Neut # (Auto) 5.0, Lymph # (Auto) 1.7, [place] # (Auto) 0.5, Eos # (Auto) 0.1, Baso # (Auto) 0.0, Sodium 138, Potassium 3.6, Chloride 101, Carbon Dioxide 36 H, Anion Gap 4.6 L, BUN 22 H D, Creatinine 0.70, Estimated Creat Clear 81, Estimated GFR 82, Est GFR ( Amer) 99, Glucose 124 H, Calcium 8.5 I & O for Last 24 hours: Intake & Output 10/03/23 10/04/23 10/05/23 10/06/23 11:59 11:59 11:59 11:59 Intake Total 447 / 447 1138 / 1138 Output Total 600 / 600 503 / 503 Balance -153 / -153 635 / 635 Weight 236 lb 3.2 oz 228 lb 9.6 oz Constitutional Constitutional: no acute distress *Routine Respiratory Exam Respiratory: Absent respiratory distress *Routine Cardiovascular Exam Cardiovascular: Absent tachycardia *Routine Abdominal Exam Abdominal: Present soft Progress Note: A&P Assessment and plan (1) Bowel obstruction: Status: Acute (2) Abdominal pain: Status: Acute Assessment and Plan Assessment and Plan for All Diagnoses:: Small bowel follow-through and follow-up films from this morning reveal no evidence of obstruction Remove nasogastric tube Sips/chips with slow advancement
[2023-10-06 08:00] VITALS: BP 136/75; PULSE 91; RESP 17; TEMP 36.6; O2SAT 94
--- NOTE | 2023-10-06 08:14 | P.PN_ITS ---
Subjective *Date: 10/06/23 *Time: 08:42 Interval history: Patient is feeling better. Denies any abdominal pain or nausea today. Able to eat ice chips. She is having BM's. Medical Exam Vital signs and Labs for Last 24 Hours: Vital Signs Temp Pulse Resp BP Pulse Ox O2 Del Method 10/06/23 07:00 Room Air 10/06/23 05:00 Room Air 10/06/23 04:00 97.9 F 89 16 133/73 93 L 10/06/23 03:00 Room Air 10/06/23 01:00 Room Air 10/05/23 23:00 Room Air 10/05/23 21:00 Room Air 10/05/23 21:00 Room Air 10/05/23 20:00 98.4 F 107 H 16 135/68 91 L 10/05/23 16:00 97.7 F 98 H 18 122/61 90 L Room Air Intake and Output 10/05/23 10/06/23 10/06/23 19:59 03:59 11:59 Intake Total 335 / 1138 803 / 1138 Output Total 503 / 503 Balance -168 / 635 803 / 635 Intake: Intake, Oral Amount 335 / 335 Intake, Total IV Amount 803 / 803 Dex 5% in 0.45% NaCl 1,000 ml @ 803 / 803 50 mls/hr IV .Q20H [facility] Rx#: [id number] Output: Output, Stool Amount 3 / 3 Output, Gastric Drainage Amount 500 / 500 Right Nare 500 / 500 Other: Number of Unmeasured Voids 1 Weight 228 lb 9.6 oz Patient Weight 10/06/23 11:59 Weight 228 lb 9.6 oz Laboratory Results - last 24 hr 10/06/23 06:16: WBC 7.3 D, RBC 4.49, Hgb 13.3, Hct 40.3, MCV 89.8, MCH 29.6, MCHC 33.0, RDW 14.5, Plt Count 194, MPV 8.0, Neut % (Auto) 68.1, Lymph % (Auto) 23.6, [place] % (Auto) 6.8, Eos % (Auto) 1.1, Baso % (Auto) 0.4, Neut # (Auto) 5.0, Lymph # (Auto) 1.7, [place] # (Auto) 0.5, Eos # (Auto) 0.1, Baso # (Auto) 0.0, Sodium 138, Potassium 3.6, Chloride 101, Carbon Dioxide 36 H, Anion Gap 4.6 L, BUN 22 H D, Creatinine 0.70, Estimated Creat Clear 81, Estimated GFR 82, Est GFR ( Amer) 99, Glucose 124 H, Calcium 8.5 I & O for Labs for Last 24 Hours: Intake & Output 10/03/23 10/04/23 10/05/23 10/06/23 11:59 11:59 11:59 11:59 Intake Total 447 / 447 1138 / 1138 Output Total 600 / 600 503 / 503 Balance -153 / -153 635 / 635 Weight 236 lb 3.2 oz 228 lb 9.6 oz Constitutional: Present no acute distress Respiratory: Present CTA bilaterally Cardiac: Present Reg Rate and Rhythm GI: Present soft and normal bowel sounds; Absent distention, tenderness or guarding Extremities: Absent full ROM, tenderness or edema Skin: Absent intact or erythema Neuro: Present alert, awake and oriented x 3 Assessment and Plan *Assessment and plan (1) Bowel obstruction: Status: Acute Qualifiers: Intestinal obstruction extent: unspecified extent Intestinal obstruction type: unspecified Qualified Code(s): K56.609 - Unspecified intestinal obstruction, unspecified as to partial versus complete obstruction Category: Medical Code(s): K56.609 - Unspecified intestinal obstruction, unspecified as to partial versus complete obstruction (2) Abdominal pain: Status: Acute Category: Medical Code(s): R10.9 - Unspecified abdominal pain (3) Diabetes mellitus: Status: Acute Qualifiers: Diabetes mellitus complication status: without complication Diabetes mellitus ocean transportation intermediary insulin use: unspecified ocean transportation intermediary insulin use status Diabetes mellitus type: type 2 Qualified Code(s): E11.9 - Type 2 diabetes mellitus without complications Category: Medical Code(s): E11.9 - Type 2 diabetes mellitus without complications (4) Hypertension: Status: Acute Qualifiers: Hypertension type: primary hypertension Qualified Code(s): I10 - Essential (primary) hypertension Category: Medical Code(s): I10 - Essential (primary) hypertension Plan Continue with IV fluids, GI rest, and NG tube. Tolerating ice chips. Surgery to follow. Dr. Garrido entry - Saw patient, OK to remove NG tube now, continue IVF.
[2023-10-06] MEDS: ACETAMINOPHEN 1,000 MG/100 ML ML 400 MG IV (12:30)
[2023-10-06 13:52] VITALS: BMI 35.9
--- NOTE | 2023-10-06 15:43 | PC.NURSE ---
ng tube removed this shift. pt as tolerated well thus far. denies n/v. medicated for headache with prn tylenol once this shift.
[2023-10-06 16:00] VITALS: BP 154/56; PULSE 90; RESP 19; TEMP 36.6; O2SAT 93
[2023-10-06 20:00] VITALS: BP 140/81; PULSE 79; RESP 18; TEMP 36.9; O2SAT 95
[2023-10-06] MEDS: GABAPENTIN 800MG TABLET 800 MG PO (21:34)
[2023-10-06] MEDS: PANTOPRAZOLE 40MG TABLET 40 MG PO (21:35)
[2023-10-06] MEDS: PRAVASTATIN 40MG TAB 40 MG PO (21:38)
[2023-10-06 21:53] LABS: POC Glucose,Bedside 102 (70-110)
[2023-10-07] VITALS: BP 140/81; PULSE 79; RESP 18; TEMP 36.9; O2SAT 95
[2023-10-07 04:00] VITALS: BP 144/85; PULSE 75; RESP 18; TEMP 36.7; O2SAT 94; BMI 35.4
--- NOTE | 2023-10-07 07:46 | EXP.SURG.PN ---
Subjective Narrative: Patient had her nasogastric tube removed yesterday and started on clear liquid diet which she has tolerated without difficulty. Has taken some full liquid diet this morning without any issues. No nausea or abdominal complaints. Her bowels have been moving. However, she states that she feels rough . She describes significant weakness and some dizziness. Exam Data for Last 24 hours Vital signs and Labs for Last 24 Hours: Temp Pulse Resp BP Pulse Ox O2 Del Method 98.0 F 75 18 144/85 H 94 L Room Air 10/07/23 04:00 10/07/23 04:00 10/07/23 04:00 10/07/23 04:00 10/07/23 04:00 10/07/23 07:00 Laboratory Results - last 24 hr 10/06/23 21:42: POC Glucose 102 I & O for Last 24 hours: Intake & Output 10/04/23 10/05/23 10/06/23 10/07/23 11:59 11:59 11:59 11:59 Intake Total 447 / 447 1138 / 1138 1052 / 1052 Output Total 600 / 600 503 / 503 0 / 0 Balance -153 / -153 635 / 635 1052 / 1052 Weight 236 lb 3.2 oz 228 lb 9.6 oz 226 lb 3 oz *Routine Abdominal Exam Abdominal: Present soft; Absent tenderness Progress Note: A&P Assessment and plan (1) Bowel obstruction: Status: Acute Assessment and plan: Seemingly doing well with resolving small bowel obstruction. Unclear as to the etiology of the patient's symptoms of dizziness and weakness. I will order some blood work. (2) Abdominal pain: Status: Acute (3) Diabetes mellitus: Status: Acute (4) Hypertension: Status: Acute
[2023-10-07 08:00] VITALS: BP 150/78; PULSE 86; RESP 20; TEMP 36.4; O2SAT 96
[2023-10-07 08:10] LABS: Basophils % 0.5 % (0.1-2.0); Eosinophils # 0.1 K/mm3 (0.0-0.4); Eosinophils % 1.5 % (0.1-12.0); Hematocrit 42.4 % (37.0-47.0); Hemoglobin 13.9 g/dL (12.2-16.2); Lymphocytes # 1.8 K/mm3 (0.7-4.5); Mean Corpuscular HGB Conc 32.7 g/dL (31.8-35.4); Mean Corpuscular Hemoglobin 29.6 pg (27.0-31.2); Mean Corpuscular Volume 90.5 fl (81-99); Mean Platelet Volume 7.8 fl (7.4-10.4); Monocytes # 0.3 K/mm3 (0.1-1.0); Monocytes % 4.7 % (1.7-9.3); Neutrophils # 4.4 K/mm3 (1.8-7.8); Neutrophils % 66.4 % (37.0-80.0); Platelet Count 206 K/mm3 (142-424); Red Blood Count 4.69 M/mm3 (4.20-5.40); Red Cell Distribution Width 14.4 % (11.5-17.5); White Blood Count 6.6 K/mm3 (4.8-10.8)
--- NOTE | 2023-10-07 08:15 | EXP.ACUTE.PN ---
Subjective *Date: 10/07/23 *Time: 08:38 Interval history: Patient is not feeling as well today. She states she started getting dizzy in the middle of the night when she got up to go to the bathroom. The room was spinning and the lights seemed to be moving. She is still dizzy this am and is also nauseated. She says she's had vertigo before and it feels similar. She was able to eat a small amount this am and is still having BM's. NG tube has been removed. Medical Exam Vital signs and Labs for Last 24 Hours: Vital Signs Temp Pulse Resp BP Pulse Ox O2 Del Method 10/07/23 07:00 Room Air 10/07/23 05:00 Room Air 10/07/23 04:00 98.0 F 75 18 144/85 H 94 L Room Air 10/07/23 03:00 Room Air 10/07/23 01:00 Room Air 10/07/23 00:00 98.4 F 79 18 140/81 95 Room Air 10/06/23 23:00 Room Air 10/06/23 21:00 Room Air 10/06/23 20:00 Room Air 10/06/23 20:00 98.4 F 79 18 140/81 95 Room Air 10/06/23 18:11 Room Air 10/06/23 17:00 Room Air 10/06/23 16:00 98 F 90 19 154/56 H 93 L Room Air 10/06/23 15:00 Room Air 10/06/23 13:00 Room Air 10/06/23 11:00 Room Air 10/06/23 09:00 Room Air Intake and Output 10/06/23 10/07/23 10/07/23 19:59 03:59 11:59 Intake Total 540 / 1052 512 / 1052 Output Total 0 / 0 0 / 0 0 / 0 Balance 540 / 1052 0 / 1052 512 / 1052 Intake: Intake, Oral Amount 540 / 540 Intake, Total IV Amount 512 / 512 Dex 5% in 0.45% NaCl 1,000 ml @ 512 / 512 50 mls/hr IV .Q20H [facility] Rx#: [id number] Output: Output, Urine Amount 0 / 0 0 / 0 0 / 0 Other: Number of Voids 1 Number of Unmeasured Voids 1 1 1 Number of Bowel Movements 1 Weight 228 lb 9.557 oz 226 lb 3 oz Patient Weight 10/07/23 11:59 Weight 226 lb 3 oz Laboratory Results - last 24 hr 10/06/23 21:42: POC Glucose 102 I & O for Labs for Last 24 Hours: Intake & Output 10/04/23 10/05/23 10/06/23 10/07/23 11:59 11:59 11:59 11:59 Intake Total 447 / 447 1138 / 1138 1052 / 1052 Output Total 600 / 600 503 / 503 0 / 0 Balance -153 / -153 635 / 635 1052 / 1052 Weight 236 lb 3.2 oz 228 lb 9.6 oz 226 lb 3 oz Constitutional: Present no acute distress Respiratory: Present CTA bilaterally Cardiac: Present Reg Rate and Rhythm GI: Present soft and normal bowel sounds; Absent distention, tenderness or guarding Extremities: Absent full ROM, tenderness or edema Skin: Absent intact or erythema Neuro: Present alert, awake and oriented x 3 Assessment and Plan *Assessment and plan (1) Bowel obstruction: Status: Acute Qualifiers: Intestinal obstruction extent: unspecified extent Intestinal obstruction type: unspecified Qualified Code(s): K56.609 - Unspecified intestinal obstruction, unspecified as to partial versus complete obstruction Category: Medical Code(s): K56.609 - Unspecified intestinal obstruction, unspecified as to partial versus complete obstruction (2) Abdominal pain: Status: Acute Category: Medical Code(s): R10.9 - Unspecified abdominal pain (3) Diabetes mellitus: Status: Acute Qualifiers: Diabetes mellitus complication status: without complication Diabetes mellitus assisted insulin use: unspecified assisted insulin use status Diabetes mellitus type: type 2 Qualified Code(s): E11.9 - Type 2 diabetes mellitus without complications Category: Medical Code(s): E11.9 - Type 2 diabetes mellitus without complications (4) Hypertension: Status: Acute Qualifiers: Hypertension type: primary hypertension Qualified Code(s): I10 - Essential (primary) hypertension Category: Medical Code(s): I10 - Essential (primary) hypertension (5) Vertigo: Status: Acute Category: Medical Code(s): R42 - Dizziness and giddiness Plan Will give zofran this am for nausea and start on meclizine for vertigo. Will change tylenol to oral pills as she can tolerate them now. Surgery to follow. Dr. Garrido entry - Saw patient, agree with above note. Duloxetine is set to be resumed this morning, patient could be having withdrawal symptoms. Gabapentin was resumed last night. Will reassess later today about possible discharge.
[2023-10-07] MEDS: ONDANSETRON 4MG/2ML VIAL 4 MG IV (08:21)
[2023-10-07] MEDS: GABAPENTIN 800MG TABLET 800 MG PO ×2 (08:21→12:08)
[2023-10-07] MEDS: DULOXETINE 30MG CAPSULE.DR 60 MG PO (08:21)
[2023-10-07 08:32] LABS: Anion Gap 4.7 mEq/L (5-15); Blood Urea Nitrogen 11 mg/dl (7-17); Carbon Dioxide 37 mmol/L (22.0-30.0); Chloride 101 mmol/L (98-107); Creatinine Clearance Estimated 80 mL/min (50-200); Estimated Glomerular Filt Rate 82 ml/min (>60); GFR (African American) 99 ML/MIN (>60); Glucose 134 mg/dl (74-100); Potassium 3.7 mmoL/L (3.5-5.1); Sodium 139 mmol/L (136-145)
[2023-10-07] MEDS: Dex 5% in 0.45% NaCl 1,000 ML 50 ML IV (12:08)
--- NOTE | 2023-10-08 15:26 | CARE MANAGER ---
Contacted patient related to hospital stay. She states she is doing very well and has no new medications. She is aware of follow up appointments and denies questions or concerns. KELLI Cristobal
--- NOTE | 2023-10-10 05:22 | EXP.DC.SUM ---
General Admission date:: 10/04/23 Discharge date: 10/07/23 HPI HPI HPI: Ms. Harding is a 73-year-old female with a history of hypertension, Hyperlipidemia, type 2 diabetes mellitus diet-controlled, arthritis, seasonal asthma and prior bowel obstruction who presented to [facility] emergency room after experiencing progressive severe abdominal pain which she describes as wavy. She states she got up yesterday and did her usual routine and actually was out and about in town when the abdominal pain started. She did have 2 normal bowel movements. She states she had a lot of gas and took some Ex-gas. With the abdominal pain she eventually did vomit. She denies seeing any blood or having any diarrhea. She had been doing well up to this point and had been eating as usual. After the pain started she had no further gas. She denies any heartburn. She has had no respiratory issues. With evaluation in the emergency room white count was found to be 11,000. She was given some IV fluids Ketorolac, IV morphine and Zofran. CT scan showed a bowel obstruction. With reassessment in the ER she was noted to have had some improvement after administration of medication but still continued with the abdominal pain. NG tube was placed and she was then admitted for further evaluation and management of the bowel obstruction. This a.m. patient remains n.p.o. with NG tube in place connected to low wall suction. She states she was able to sleep some during the night. She states her abdominal pain is significantly better and almost resolved. She denies any nausea and has not vomited. As per Dr. Love this a.m.: Patient is a 73-year-old female with complex abdominal surgery history. She had previously undergone total abdominal hysterectomy via midline laparotomy in 2004. She had developed previous ventral hernias requiring repair, details unknown. Most notable was that she had developed a bowel obstruction secondary to apparent hernia in 2009 requiring surgical intervention and prolonged hospital stay at [facility]. She has not had any significant subsequent symptoms consistent with bowel obstruction according to her. However, she had been evaluated in the emergency department in 2021 for abdominal pain. She was in her usual state of health until 10/04/2023 at which time she developed sharp lower abdominal pain. She presented to the emergency department in the afternoon of 10/04/2023 with this abdominal pain, nausea, and vomiting. CT scan revealed a long segment of small bowel with tapering at the mid jejunum into in the left lower quadrant. There is evidence of anastomotic suture chain . This was read as suggestion of anterior abdominal adhesions given lack of fat plane with multiple loops of anterior small bowel. She was admitted for inpatient management and surgical consultation. It should be noted that patient had a CT scan in 2021 when she presented with abdominal pain which revealed mesenteric fat stranding adjacent to previous anastomosis with fluid-filled loops of small bowel. At that time she was manged as an outpatient. She currently has no pain. Hospital Course Hospital Course Hospital Course: On admission patient was started on IV fluids, had an NG tube placed, and was made NPO. She was seen and followed by Dr. Love surgeon who felt she had a possible partial bowel obstruction. He felt that she also may have some degree of chronic bowel obstruction given her prior CT scan and history. There was no indication at the time of exam for immediate operative intervention. The patient did gradually improve after NG tube placement. Abdominal pain resolved, white blood cell count did return to normal and kidney function improved. She did have a small bowel follow-through which showed contrast throughout her colon. She began to have liquid bowel movements. NG tube was eventually discontinued. She tolerated sips and chips and graduated to full liquids which she also tolerated. She did have some weakness and dizziness along with some nausea which was felt to be due to withdrawal from her duloxetine. This was restarted as well as gabapentin. She received some Zofran and by the p.m. of 10/07/2023 she was feeling much better and was okay to be discharged home with follow-up in the office in a week. See results of CT and xrays in data. Disposition: discharged home in stable and satisfactory condition. Medications as per med reconciliation sheet. See discharge instructions. Exam Data for Last 24 hours Vital signs and Labs for Last 24 Hours: Temp Pulse Resp BP Pulse Ox O2 Del Method 97.6 F 86 20 150/78 H 96 Room Air 10/07/23 08:00 10/07/23 08:00 10/07/23 08:00 10/07/23 08:00 10/07/23 08:00 10/07/23 12:13 I & O for Last 24 hours: Intake & Output 10/07/23 10/08/23 10/09/2324 11:59 11:59 11:59 11:59 Intake Total 1462 / 1462 240 / 240 Output Total 0 / 0 0 / 0 Balance 1462 / 1462 240 / 240 Weight 226 lb 3 oz Microbiology Reports for the Last 24 Hours: Microbiology 10/05/23 01:46 Urine,Clean Catch Urine Culture - Final Narrative: Medical Exam Vital signs and Labs for Last 24 Hours: Vital Signs Temp Pulse Resp BP Pulse Ox O2 Del Method 10/07/23 07:00 Room Air 10/07/23 05:00 Room Air 10/07/23 04:00 98.0 F 75 18 144/85 H 94 L Room Air 10/07/23 03:00 Room Air 10/07/23 01:00 Room Air 10/07/23 00:00 98.4 F 79 18 140/81 95 Room Air 10/06/23 23:00 Room Air 10/06/23 21:00 Room Air 10/06/23 20:00 Room Air 10/06/23 20:00 98.4 F 79 18 140/81 95 Room Air 10/06/23 18:11 Room Air 10/06/23 17:00 Room Air 10/06/23 16:00 98 F 90 19 154/56 H 93 L Room Air 10/06/23 15:00 Room Air 10/06/23 13:00 Room Air 10/06/23 11:00 Room Air 10/06/23 09:00 Room Air Intake and Output 10/06/23 10/07/23 10/07/23 19:59 03:59 11:59 Intake Total 540 / 1052 512 / 1052 Output Total 0 / 0 0 / 0 0 / 0 Balance 540 / 1052 0 / 1052 512 / 1052 Intake: Intake, Oral Amount 540 / 540 Intake, Total IV Amount 512 / 512 Dex 5% in 0.45% NaCl 1,000 ml @ 512 / 512 50 mls/hr IV .Q20H [facility] Rx#: [id number] Output: Output, Urine Amount 0 / 0 0 / 0 0 / 0 Other: Number of Voids 1 Number of Unmeasured Voids 1 1 1 Number of Bowel Movements 1 Weight 228 lb 9.557 oz 226 lb 3 oz Patient Weight 10/07/23 11:59 Weight 226 lb 3 oz Laboratory Results - last 24 hr 10/06/23 21:42: POC Glucose 102 I & O for Labs for Last 24 Hours: Intake & Output 10/04/23 10/05/23 10/06/23 10/07/23 11:59 11:59 11:59 11:59 Intake Total 447 / 447 1138 / 1138 1052 / 1052 Output Total 600 / 600 503 / 503 0 / 0 Balance -153 / -153 635 / 635 1052 / 1052 Weight 236 lb 3.2 oz 228 lb 9.6 oz 226 lb 3 oz Constitutional: Present no acute distress Respiratory: Present CTA bilaterally Cardiac: Present Reg Rate and Rhythm GI: Present soft and normal bowel sounds; Absent distention, tenderness or guarding Extremities: Absent full ROM, tenderness or edema Skin: Absent intact or erythema Neuro: Present alert, awake and oriente Results Data Completed and Pending Completed studies during hospitalization [Text1]: 10/04/2023 CT Abd/pelvis COMPARISON: CT ABDOMEN PELVIS W CON 04/23/2022 12:48 AM FINDINGS: Tubes, catheters and devices: Posterior left lower back spinal nerve stimulator housing device with intact catheters, incompletely visualized. Lungs: Bibasilar atelectasis and scarring, similar to prior comparison. Noted right middle lobe nodule is not appreciated on this examination. Heart: Base of heart is unremarkable as visualized. Coronary arteries: Heavy calcified atherosclerotic disease of the visualized coronary vasculature. Liver: Diffuse hepatic steatosis. Gallbladder and bile ducts: Gallbladder is distended, multiple small calcified dependent gallstones are appreciated within the gallbladder, no secondary evidence of inflammation. Extrahepatic common biliary duct similar in caliber to prior comparison. Pancreas: Normal. No ductal dilation. Spleen: Multiple calcified splenic granulomas are again noted. Adrenal glands: Normal. No mass. Kidneys and ureters: Unchanged right renal pelvic calcifications. Unchanged bilateral renal hypodensities. Stomach and bowel: Fatty mass expands the posterolateral wall of the sigmoid colon (series 3, image 84; series 1002, image 55; series 1001, image 49), fatty mass measures 1.5 x 1.0 x 1.1 cm, likely reflects benign lipoma/lipomatous mass. Long segment loop of small bowel is dilated up to 3.3 cm within the bilateral lower quadrants (series 3, image 89). Dilated loop appears to begin with gradual tapering to pathologic size about the mid jejunum, and terminates at the level of the anastomotic suture chain. There is collapsed small bowel distally, as well as, colon with small amount of fecal matter in the cecum and proximal rectum. Appendix: No evidence of appendicitis. Intraperitoneal space: Redemonstrated central mesenteric fat stranding similar to prior comparative examination. There is intimate relationship with the anterior abdominal omentum and abdominal wall with multiple loops of small bowel obliterating anterior fat plane concerning for possible adhesions. Small amount of intraperitoneal simple ascites is appreciated within the left lower quadrant. Vasculature: Heavy calcified atherosclerotic disease of the visualized aorta and its major branches. Lymph nodes: Unremarkable. No enlarged lymph nodes. Urinary bladder: Unremarkable as visualized. Reproductive: Status post hysterectomy. Bones/joints: Diffuse degenerative changes of the visualized osseous structures, similar in severity to prior comparison. Soft tissues: Multiple breast calcifications are noted bilaterally. Rectus diastasis with small intraperitoneal fat protrusion, supraumbilical. Anterior midline postsurgical changes of the abdominal subcutaneous fat. IMPRESSION: 1. Long segment small bowel obstruction with proximal tapering beginning at the mid jejunum, ending at the left lower quadrant anastomotic suture chain, reaching up to 3.3 cm within the left lower quadrant. Suggestion of anterior abdominal adhesions given lack of fat plane with multiple loops of anterior small bowel. Small volume left lower quadrant intraperitoneal ascites is present. Collapsed distal bowel is additionally seen. 2. Additional non acute findings as above. 10/04/2023 CXR FINDINGS: Tubes, catheters and devices: NG tube courses midline, catheter side port and tip projecting in the left upper quadrant. Incompletely visualized nerve stimulator device. Lungs: Unremarkable. No consolidation. Pleural spaces: Unremarkable. No pleural effusion. No pneumothorax. Heart/Mediastinum: Unremarkable. No cardiomegaly. Bones/joints: Diffuse degenerative change of the visualized osseous structures. Soft tissues: Left chest wall postsurgical change. IMPRESSION: 1. NG tube as above. 2. No obvious acute cardiopulmonary findings. 10/05/2023 UGI and small bowel xray FINDINGS: SMALL BOWEL SERIES Contrast passes through the small bowel and reaches the colon in 3 hours. There are mildly distended loops of small bowel, probably related to a diffuse ileus. Incidental note is made of a lumbar scoliosis convex to the right measuring 35 degrees. IMPRESSION: Probable ileus. 10/06/2023 chest and abdominal xray FINDINGS: Chest: The heart and mediastinal within normal limits. There is atelectasis at the right lung base. There is no pneumothorax. Osseous structures are unremarkable. Abdomen: AP and upright views of the abdomen were obtained. Contrast is seen within a nondistended colon. There are no findings to suggest complete small bowel obstruction. No abnormal calcifications are identified. There is 30 degrees of lumbar scoliosis convex to the right. IMPRESSION: No acute cardiopulmonary process. Contrast entirely within the colon. No evidence of complete small bowel obstruction. DS: Diagnosis Discharge Diagnosis (1) Bowel obstruction: Status: Acute Code(s): K56.609 - Unspecified intestinal obstruction, unspecified as to partial versus complete obstruction Qualifiers: Intestinal obstruction extent: unspecified extent Intestinal obstruction type: unspecified Qualified Code(s): K56.609 - Unspecified intestinal obstruction, unspecified as to partial versus complete obstruction (2) Abdominal pain: Status: Acute Code(s): R10.9 - Unspecified abdominal pain (3) Diabetes mellitus: Status: Acute Code(s): E11.9 - Type 2 diabetes mellitus without complications Qualifiers: Diabetes mellitus complication status: without complication Diabetes mellitus [employer] insulin use: unspecified fci insulin use status Diabetes mellitus type: type 2 Qualified Code(s): E11.9 - Type 2 diabetes mellitus without complications (4) Hypertension: Status: Acute Code(s): I10 - Essential (primary) hypertension Qualifiers: Hypertension type: primary hypertension Qualified Code(s): I10 - Essential (primary) hypertension (5) Vertigo: Status: Acute Code(s): R42 - Dizziness and giddiness Meds Home Medications and Allergies Home Medications Medication Instructions Recorded Confirmed Type atenolol 25 mg tablet 25 mg PO DAILY 90 days #90 tabs 07/04/18 10/04/23 History lansoprazole 30 mg capsule,delayed 30 mg PO DAILY 90 days #90 caps 07/04/18 10/04/23 History release simvastatin 20 mg tablet 20 mg PO HS 90 days #90 tabs 07/04/18 10/04/23 History gabapentin 800 mg tablet 800 mg PO TID 12/30/20 10/04/23 History lisinopril 10 1 tab PO DAILY 12/30/20 10/04/23 History mg-hydrochlorothiazide 12.5 mg tablet duloxetine 60 mg capsule,delayed 60 mg PO DAILY 10/05/23 10/05/23 History release New Prescriptions to Start Prescriptions: Allergies Allergy/AdvReac Type Severity Reaction Status Date / Time No Known Drug Allergies Allergy Unknown Verified 12/14/21 12:03 Discharge Plan Disposition Patient Disposition: Home, Self-Care Condition: Good Discharge Order Discharge Orders: Discharge Order (Routine); Ordered 10/07/23 Ordered By: Jose Manuel Garrido Follow up Plan Follow up with: Jose Manuel Garrido MD [Primary Care Provider] - 10/15/23 10:30 am Prescriptions/Medication Reconciliation: Continued atenolol 25 mg tablet 25 mg PO DAILY 90 Days Qty: 90 simvastatin 20 mg tablet 20 mg PO HS 90 Days Qty: 90 lansoprazole 30 mg capsule,delayed release(DR/EC) 30 mg PO DAILY 90 Days Qty: 90 lisinopril-hydrochlorothiazide 1 EACH tablet 1 tab PO DAILY gabapentin 800 MG tablet 800 mg PO TID duloxetine 60 mg capsule,delayed release(DR/EC) 60 mg PO DAILY Problem Reconciliation Problems Reviewed?: Yes Patient Discharge Instructions ACTIVITY: Continue current activity DIET: advance to your usual diet Patient Instructions: Small Bowel Obstruction, DI for Small Bowel Obstruction Providers Primary Care Provider: Jose Manuel Garrido Admit Provider: Jose Manuel Garrido Attending Provider: Jose Manuel Garrido
== END 2023-10-07 14:35 | disposition home or self-care (01) | DRG 390 ==
LOC: ER 15:34 → 2ND 18:22
PROVIDERS: Surgery; Admitting Provider Family Medicine; Emergency Provider Emergency Medicine; PCP Family Medicine; Visit Provider Family Medicine
DX: K56.609 Unspecified intestinal obstruction, unspecified as to partial versus complete obstruction (principal); E11.9 Type 2 diabetes mellitus without complications; I10 Essential (primary) hypertension; E78.5 Hyperlipidemia, unspecified; Z85.3 Personal history of malignant neoplasm of breast; M19.90 Unspecified osteoarthritis, unspecified site; F17.200 Nicotine dependence, unspecified, uncomplicated
CPT/HCPCS: 36415; 71045; 74021; 74177; 74250; 80048; 80053; 81001; 82962; 83605; 83690; 85025; 87086; 99285; J0131; J2405; Q9967

== ENCOUNTER 2024-03-10 06:15 | Outpatient (CLI) | payer MEDICARE, BC, SELFPAY ==
--- NOTE | 2024-03-10 | CT_ITS ---
FINAL REPORT TECHNIQUE: Noncontrast CT exam of the abdomen and pelvis. This study was performed with techniques to keep radiation doses as low as reasonably achievable (ALARA). Individualized dose reduction techniques using automated exposure control or adjustment of mA and/or kV according to the patient''s size were employed. CLINICAL HISTORY: .CHRONIC UTI, HEMATURIA COMPARISON: 10/04/2023 FINDINGS: Abdomen: Lung bases are clear. Liver, spleen, pancreas and adrenal glands have a normal CT appearance in their limited unenhanced state. There is cholelithiasis. There is no evidence of bowel obstruction. There are surgical changes of the small bowel in the left abdomen. There are nonobstructing right renal stones. No obvious renal mass is present. No ureteral stones are present. There is no hydronephrosis Pelvis: Appendix is normal. There is a midline lower abdominal wall hernia containing small bowel, unchanged from prior exam. Patient is status post hysterectomy. No distal ureteral stones are seen. Bladder is unremarkable. No fluid collection or adenopathy is seen. The appendix is normal. IMPRESSION: Nonobstructing right renal stones. No acute process. Reviewed, Interpreted and Dictated by Rachel Shaffer MD Transcribed by Shona Beltrán Authenticated and [facility]
== END 2024-03-10 23:59 | disposition home or self-care (01) ==
LOC: RAD 06:16
PROVIDERS: PCP Family Medicine; Visit Provider Family Medicine
DX: N39.0 Urinary tract infection, site not specified (principal); R31.9 Hematuria, unspecified
CPT/HCPCS: 74176

== ENCOUNTER 2024-04-28 07:42 | Outpatient (CLI) | payer MEDICARE, BC, SELFPAY ==
[2024-04-28] MEDS: ALBUTEROL 0.083% 2.5 MG/3 ML NEB IH (09:03)
== END 2024-04-28 23:59 | disposition home or self-care (01) ==
LOC: RT 07:43
PROVIDERS: PCP Family Medicine; Visit Provider Family Medicine
DX: R06.02 Shortness of breath (principal)
CPT/HCPCS: 94060; 94726; 94729; J7613

== ENCOUNTER 2024-08-21 16:10 | Inpatient (IN) | payer MEDICARE, BC, SELFPAY ==
[2024-08-21 16:54] VITALS: BP 142/76; PULSE 93; RESP 18; TEMP 36.7; O2SAT 98; BMI 34.4
--- NOTE | 2024-08-21 16:58 | XR_ITS ---
PROCEDURE INFORMATION: Exam: XR Complete Acute Abdomen Series Including Chest Exam date and time: 08/21/2024 5:33 PM Age: 74 years old Clinical indication: Abdominal pain; Additional info: Severe abd pain TECHNIQUE: Imaging protocol: Radiologic exam. Complete acute abdomen series, including 2 or more views of the abdomen and a single view chest. COMPARISON: 1. CT ABDOMEN PELVIS WO CON 03/10/2024 6:35 AM 2. CR XR ACUTE ABDOMEN SERIES 10/06/2023 5:59 AM FINDINGS: Tubes, catheters and devices: Generator pack over the left iliac bone with intra spinal stimulator leads extending to the mid thoracic canal redemonstrated. Lungs: Normal. No consolidation. Pleural spaces: Normal. No pleural effusions. No pneumothorax. Heart/Mediastinum: Normal. No cardiomegaly. Gastrointestinal tract: Normal. No bowel dilation. Intraperitoneal space: Normal. No free air. Bones/joints: Normal. No acute fracture. Soft tissues: Normal. IMPRESSION: No acute findings.
[2024-08-21 17:21] LABS: Basophils % 0.4 % (0.1-2.0); Eosinophils # 0.1 K/mm3 (0.0-0.4); Eosinophils % 0.5 % (0.1-12.0); Hematocrit 44.9 % (37.0-47.0); Hemoglobin 14.7 g/dL (12.2-16.2); Lymphocytes # 1.5 K/mm3 (0.7-4.5); Lymphocytes % 13.2 % (10-50); Mean Corpuscular HGB Conc 32.7 g/dL (31.8-35.4); Mean Corpuscular Hemoglobin 28.3 pg (27.0-31.2); Mean Corpuscular Volume 86.5 fl (81-99); Mean Platelet Volume 9.8 fl (7.4-10.4); Monocytes # 0.6 K/mm3 (0.1-1.0); Monocytes % 5.4 % (1.7-9.3); Neutrophils # 8.8 K/mm3 (1.8-7.8); Neutrophils % 80.3 % (37.0-80.0); Platelet Count 214 K/mm3 (142-424); Red Blood Count 5.19 M/mm3 (4.20-5.40); Red Cell Distribution Width 13.2 % (11.5-17.5)
[2024-08-21 17:32] LABS: Albumin Level 4.7 g/dl (3.5-5.0); Chloride 100 mmol/L (98-107); Potassium 3.8 mmoL/L (3.5-5.1); Sodium 139 mmol/L (136-145)
[2024-08-21 17:35] LABS: Alanine Aminotransferase 30 U/L (12-78); Albumin/Globulin Ratio 1.5 (1.1-1.8); Alkaline Phosphatase 113 U/L (38-126); Anion Gap 11.8 mEq/L (5-15); Aspartate Amino Transferase 43 U/L (14-36); Bilirubin,Total 0.4 mg/dl (0.2-1.3); Blood Urea Nitrogen 11 mg/dl (7-17); Calcium 9.4 mg/dl (8.4-10.2); Carbon Dioxide 31 mmol/L (22.0-30.0); Creatinine Clearance Estimated 77 mL/min (50-200); Estimated Glomerular Filt Rate 82 ml/min (>60); GFR (African American) 99 ML/MIN (>60); Globulin 3.1 g/dL (1.3-3.2); Glucose 141 mg/dl (74-100); Lipase 269 U/L (23-300); Total Protein,Serum 7.8 g/dl (6.3-8.2)
[2024-08-21] MEDS: ONDANSETRON 4MG ODT 4 MG SL (17:59)
--- NOTE | 2024-08-21 18:27 | PC.NURSE ---
Pt has not been able to provide a urine sample up to this point. Pt states she feels like she is still unable to void at this time.
--- NOTE | 2024-08-21 19:08 | ED_ITS ---
<Statement entered by Aminah Ruvalcaba DO - 08/21/24 23:17> I was consulted by the CARMELO, and we discussed the complexity of the problems being addressed. I approved the treatment and management plan for this patient's care in the emergency department, thus performing a substantive portion of the medical decision making. Aminah Ruvalcaba DO Discharge Plan Disposition Patient Disposition: Admitted Condition: Serious Clinical Impressions Clinical Impression: SBO (small bowel obstruction) Discharge ED Provider: Aminah Ruvalcaba General Adult HPI General Chief complaint: Abdominal Pain Stated complaint: abd pain Time Seen by Provider: 08/21/24 19:07 Mode of Arrival: Ambulatory Source of Information: Patient Description of Symptoms (Recalled from ER Triage Doc. by RN): Pt presents with c/o generalized abd pain that started today. Pt denies v/d. Pt has had nausea and has had 3 bowel movement today. Pt states she has a hx of bowel obstruction. History of Present Illness HPI narrative: Patient presents for evaluation of acute abdominal pain. Patient began having generalized abdominal pain earlier today and reports nausea but no vomiting or diarrhea. Patient does have a history of previous ventral hernia repair with mesh and then subsequent small bowel obstruction secondary to adhesions that required small bowel resection. She has had 1 previous interval episode since with a small bowel obstruction that resolved with conservative management. That happened approximately last year at this time. Patient denies any fever chills hemoptysis hematochezia melena hematemesis hematuria. Pain does not radiate and is nonfocal Related Data Home Medications ?Medication ?Instructions ?Recorded ?Confirmed atenolol 25 mg tablet 25 mg PO DAILY 90 days #90 tabs 07/04/18 08/21/24 lansoprazole 30 mg capsule,delayed 30 mg PO DAILY 90 days #90 caps 07/04/18 08/21/24 release simvastatin 20 mg tablet 20 mg PO HS 90 days #90 tabs 07/04/18 08/21/24 gabapentin 800 mg tablet 800 mg PO TID 12/30/20 08/21/24 lisinopril 10 1 tab PO DAILY 12/30/20 08/21/24 mg-hydrochlorothiazide 12.5 mg tablet duloxetine 60 mg capsule,delayed 60 mg PO DAILY 10/05/23 08/21/24 release albuterol sulfate 90 mcg/actuation 90 mcg inhalation NEEDED PRN 08/03/24 08/21/24 aerosol inhaler Asthma Allergies Allergy/AdvReac Type Severity Reaction Status Date / Time No Known Allergies Allergy Verified 08/21/24 18:28 [facility] Disclaimer: The information contained in this section may have been updated after the patient was seen, as this information can be updated by other users. Medical History (Updated 08/21/24 @ 21:28 by FER Delatorre) Decreased diffusion capacity of lung SHILOH (obstructive sleep apnea) Dyspnea on exertion Bronchitis Sinusitis Asthma Viral syndrome COVID-19 Muscle strain Diabetes mellitus Breast cancer Arthritis Spinal cord stimulator status Hyperlipemia Hypertension SBO (small bowel obstruction) Surgical History H/O: hysterectomy H/O hernia repair Family History Other Diabetes Social History Smoking Status: Never smoker alcohol intake: never current occupational status: other Travel in the last 8 weeks: None Have you lived/traveled outside [place] in past 30 days?: No Contact w/someone who lives/traveled outside US past 30 days?: No Exposure to someone with infectious disease in past 14 days?: No Do you have a fever (greater than 100.4 F or 38 C)?: No Have you tested positive for COVID-19: No Exposed to someone with COVID-19 in past 14 days?: No Do you have a sore throat?: No Do you have a cough?: No Do you have any weakness?: No Do you have any diarrhea?: No Are you experiencing any unusual bleeding?: No Do you have any muscle aches/pain?: No Do you have any abdominal pain?: Yes Are you experiencing loss of taste or smell?: No Other Medical History Have you received the Flu Vaccine for this season: No Have you received the Pneumonia Vaccine: Yes ROS Obtained: Yes Systems reviewed as appropriate & no additional complaints except as documented Physical Exam General General appearance: alert and in no apparent distress Respiratory Respiratory exam: Present normal lung sounds bilaterally Cardiovascular Cardiovascular exam: Present regular rate Neurological Exam Neurological exam: Present alert and oriented X3 Medical Decision Making Medical Records Medical records reviewed: Yes I reviewed the patient's medical records. Screening: Per USPSTF and CDC recommendations, given the prevalence of disease in our region, it is our hospital?s policy to screen for HIV and viral Hepatitis for all patients aged 18 and over and those with ongoing risk factors. Karl Inquiry Pt receiving controlled substance: No Vital Signs: 08/21/24 16:54 Temperature 98.1 F Temperature Source Oral Pulse Rate [Right] 93 H Respiratory Rate 18 Blood Pressure [Right Arm] 142/76 H Blood Pressure Mean [Right Arm] 98 Blood Pressure Source [Right Arm] Automatic Cuff Blood Pressure Position [Right Arm] Sitting 02 Sat by Pulse Oximetry 98 Lab Data Lab results reviewed: Yes I reviewed the patient's lab results. Lab Results 08/21/24 17:05: WBC 11.0 H, RBC 5.19, Hgb 14.7, Hct 44.9, MCV 86.5, MCH 28.3, MCHC 32.7, RDW 13.2, Plt Count 214, MPV 9.8, Neut % (Auto) 80.3 H, Lymph % (Auto) 13.2, Maverick % (Auto) 5.4, Eos % (Auto) 0.5, Baso % (Auto) 0.4, Neut # (Auto) 8.8 H, Lymph # (Auto) 1.5, Maverick # (Auto) 0.6, Eos # (Auto) 0.1, Baso # (Auto) 0.0, Sodium 139, Potassium 3.8, Chloride 100, Carbon Dioxide 31 H, Anion Gap 11.8, BUN 11, Creatinine 0.70, Estimated Creat Clear 77, Estimated GFR 82, Est GFR ( Amer) 99, Glucose 141 H, Calcium 9.4, Total Bilirubin 0.4, AST 43 H, ALT 30, Alkaline Phosphatase 113, Total Protein 7.8, Albumin 4.7, Globulin 3.1, Albumin/Globulin Ratio 1.5, Lipase 269 08/21/24 17:05: Lipase 306 H, Procalcitonin 0.048 08/21/24 19:36: Urine Color Yellow, Urine Appearance Slightly cloudy, Urine pH 5.5, Ur Specific [place] 1.030, Urine Protein Negative, Urine Glucose (UA) Negative, Urine Ketones Trace, Urine Blood Trace A, Urine Nitrate Positive A, Urine Bilirubin Negative, Urine Urobilinogen 0.2, Ur Leukocyte Esterase Trace A, Urine RBC Occasional, Urine WBC 10-20, Ur Squamous Epith Cells 3-5, Urine Bacteria 4+ 08/21/24 17:05 08/21/24 17:05 Orders (Tests/Meds): ED MEDICATIONS Generic Name Dose Route Start Last Admin Trade Name García PRN Reason Stop Dose Admin Lactated Ringer's 1,000 mls @ 50 mls/hr 08/21/24 21:51 Lactated Ringer's 1000 Ml Bag IV 09/20/24 21:44 .Q20H DAWSON Promethazine HCl 25 mg 08/21/24 21:45 08/21/24 21:48 Promethazine Hcl 25mg/Ml 1ml Vial IV 08/21/24 21:46 25 mg ONCE ONE Administration Sodium Chloride 10 ml 08/21/24 21:51 Sodium Chloride 0.9% 10ml Syr (Rad Only) IV 09/20/24 20:27 NEEDED PRN Maintain IV Site Sodium Chloride 25 ml 08/21/24 21:51 Sodium Chloride 0.9% 25ml Bag IV 09/20/24 21:44 NEEDED PRN for Use with IV Promethazine Discontinued Medications Generic Name Dose Route Start Last Admin Trade Name García PRN Reason Stop Dose Admin Acetaminophen 1,000 mg 08/21/24 19:42 08/21/24 19:57 Acetaminophen 1,000mg/100ml Vial IV 08/21/24 19:43 1,000 mg ONCE ONE Administration Sodium Chloride 1,000 mls @ 999 mls/hr 08/21/24 19:42 08/21/24 19:57 Sod Chlor 0.9% 1000ml Bag IV 08/21/24 20:42 999 mls/hr .Q1H1M ONE Administration Lactated Ringer's 1,000 mls @ 50 mls/hr 08/21/24 21:45 Lactated Ringer's 1000 Ml Bag IV 09/20/24 21:44 .Q20H DAWSON Iopamidol 75 ml 08/21/24 20:28 08/21/24 20:28 Iopamidol-370 (76%);100ml Bottle IV 08/21/24 20:29 75 ml ONCE ONE Administration Ketorolac Tromethamine 15 mg 08/21/24 19:42 08/21/24 19:57 Ketorolac 30mg/Ml Vial IV 08/21/24 19:43 15 mg ONCE ONE Administration Lidocaine HCl 1 ml 08/21/24 21:22 08/21/24 21:30 Lidocaine 2% Urojet 10ml TP 08/21/24 21:23 1 ml ONCE ONE Administration Ondansetron HCl 4 mg 08/21/24 17:49 08/21/24 17:59 Ondansetron 4mg Odt SL 08/21/24 17:50 4 mg ONCE ONE Administration Ondansetron HCl 4 mg 08/21/24 19:42 08/21/24 19:57 Ondansetron 4mg/2ml Vial IV 08/21/24 19:43 4 mg ONCE ONE Administration Sodium Chloride 10 ml 08/21/24 20:28 08/21/24 20:28 Sodium Chloride 0.9% 10ml Syr (Rad Only) IV 09/20/24 20:27 10 ml NEEDED PRN Administration Maintain IV Site Sodium Chloride 25 ml 08/21/24 21:45 Sodium Chloride 0.9% 25ml Bag IV 09/20/24 21:44 NEEDED PRN for Use with IV Promethazine ORDERS Category Date Time Status CT abdomen pelvis w con Stat Cat Scan 08/21/24 19:42 Completed KUB (single view) [XR KUB] Stat Exams 08/21/24 21:36 Taken XR acute abdomen series Stat Exams 08/21/24 16:58 Completed Complete Blood Count Auto Diff Stat Lab 08/21/24 17:05 Completed Comprehensive Metabolic Panel Stat Lab 08/21/24 17:05 Completed Lipase Stat Lab 08/21/24 17:05 Completed Lipase Stat Lab 08/21/24 17:05 Completed Procalcitonin Stat Lab 08/21/24 17:05 Completed Procalcitonin Stat Lab 08/21/24 18:45 Received Urinalysis and Microscopic Stat Lab 08/21/24 19:36 Completed Urine Culture Stat Micro 08/21/24 19:36 Received Medical Decision Narrative: In summary patient is a 74-year-old female who presents to the emergency department for evaluation of abdominal pain. Patient is hemodynamically stable upon arrival, afebrile. Physical exam is remarkable for mildly diffusely tender abdomen on palpation without rebound or guarding or rigidity. Bowel sounds hyperactive proximally and quiescent distally.. Differential diagnosis includes gastroenteritis versus partial small bowel obstruction versus complete small bowel obstruction versus urinary tract infection versus other acute abdominal pathology etc. Initial workup will be conducted with hematologic labs CT scan abdomen pelvis with contrast.. Initial interventions include crystalloid bolus and Zofran Tylenol and Toradol IV. Initial workup reviewed by me labs are significant for white count of 11 with an absolute neutrophil count of 8.8 chemistry significant for glucose 141 AST of 43 lipase of 306 procalcitonin is 0.048 urinalysis is positive for blood nitrate leukocytes and microscopic exam shows occasional red blood cells 10-20 white cells 3-5 epithelial cells 4+ bacteria indicating urinary tract infection although patient has no urinary symptoms. My informal interpretation of her CT scan abdomen pelvis however showed high-grade small bowel obstruction likely the transition point is her anastomosis previously with fecalization of stool proximal to the anastomosis. Radiologist read pending please see their final report for full details. Given this I have ordered NG tube placement and decompression and it was placed with return of succus after first attempt. My formal interpretation of her KUB shows good placement of the NG tube. I then had a interactive discussion with general surgery regarding patient PFEIFFER and patient management and they are agreeable to follow the patient as she appears to be stable and likely does not require immediate or emergent surgical intervention. I then contacted Dr. Powell who is on-call for Dr. Garrido and discussed patient presentation patient management and she will be admitted for further evaluation and care for Dr. Garrido. Critical Care Critical Care Time Critical Care Time: Yes Attestation: On 08/21/24, the high probability of a clinically significant, sudden or life threatening deterioration of the following system(s) required my full and direct attention, intervention and personal management. The time I documented below is in addition to time spent performing reported procedures but includes the following listed in this critical care notation. Total Time Total Critical Care Time: 35
--- NOTE | 2024-08-21 19:20 | PC.NURSE ---
Report received from September RN Pt awake alert and oriented Skin pink warm and dry Resp full and easy Speech clear and appropriate.
[2024-08-21 19:36] LABS: Microscopic, Urine URINE MICROSCOPIC (MICROSCOPIC)
--- NOTE | 2024-08-21 19:42 | CT_ITS ---
PROCEDURE INFORMATION: Exam: CT Abdomen And Pelvis With Contrast Exam date and time: 08/21/2024 7:26 PM Age: 74 years old Clinical indication: Other: Abdominal pain and vomiting, history of sbo TECHNIQUE: Imaging protocol: Computed tomography of the abdomen and pelvis with contrast. Radiation optimization: All CT scans at this facility use at least one of these dose optimization techniques: automated exposure control; mA and/or kV adjustment per patient size (includes targeted exams where dose is matched to clinical indication); or iterative reconstruction. Contrast material: ISOVUE; Contrast volume: 75 ml; Contrast route: IV; COMPARISON: CT ABDOMEN PELVIS WO CON 03/10/2024 6:35 AM FINDINGS: Lungs: Lung bases are clear. Liver: Fatty liver changes with associated hepatomegaly measuring 19.7 cm. Liver otherwise unremarkable. Gallbladder and biliary ducts: Small stones in the gallbladder which is otherwise unremarkable. No evident bile duct dilatation. Pancreas: Normal. No ductal dilation. Spleen: Normal. No splenomegaly. Adrenal glands: Normal. No mass. Kidneys and ureters: A 17 mm cyst in the anterior mid right kidney. Additional subcentimeter low-density lesions in the right kidney too small to characterize but likely a cysts. No follow-up advised. Nonobstructing right kidney stones largest measuring 11 mm superiorly. Kidneys and ureters otherwise unremarkable with no obstructing stones or uropathy. Stomach and bowel: [id number] dilated fluid and air distended small bowel loops noted in the midabdomen extending to the pelvis with transition to decompressed distal ileal loops noted. Proximal jejunal loops are also nondilated. Mild mesenteric edema is noted involving some of the dilated left mid abdomen small bowel loops centered on axial image 86 and coronal image 31 which appear potentially more clustered than the other dilated small bowel loops. GI tract structures otherwise unremarkable with no evident wall thickening allowing for incomplete distention. Small bowel anastomosis noted in the left midabdomen. Abrupt transition is noted at the level of the anastomosis centered on coronal image 33 with fecalization proximal to the anastomosis suggesting this potentially may be the transition zone. No evident pneumatosis or free air. Appendix: Appendix is normal. No evidence of appendicitis. Intraperitoneal space: See Stomach and bowel finding. Vasculature: Unremarkable. No abdominal aortic aneurysm. Lymph nodes: Unremarkable. No enlarged lymph nodes. Urinary bladder: Unremarkable as visualized. Reproductive: Hysterectomy. Bones/joints: Unremarkable. No acute fracture. Soft tissues: Unremarkable. IMPRESSION: 1. Findings compatible with high-grade distal small bowel obstruction. Mesenteric edema is noted involving some left mid abdomen small bowel loops suggesting the possibility that this might reflect a developing complicated small bowel obstruction potentially related to an internal hernia although a definite internal hernia is difficult to identify. 2. Abrupt transition at the level of the small bowel anastomosis in the left mid abdomen with associated fecalization of the dilated segment adjacent to the anastomosis suggesting the anastomosis may be the location of the small bowel obstruction transition zone and potentially the etiology of the obstruction. COMMENTS: Consistent with the [employer]'s Incidental Findings Committee white paper (J Am Yoni Radiol 2018): Any incidental renal lesion less than 1 cm or classified as too small to characterize, or any incidental cystic renal lesion characterized as simple-appearing, is likely benign. No follow-up imaging is recommended for these lesions per consensus recommendations based on imaging criteria.
[2024-08-21] MEDS: 0.9 % SODIUM CHLORIDE 1000ML 1,000 ML 999 ML IV (19:57)
[2024-08-21] MEDS: ONDANSETRON 4MG/2ML VIAL 4 MG IV (19:57)
[2024-08-21] MEDS: ACETAMINOPHEN 1,000MG/100ML VIAL 1000 MG IV (19:57)
[2024-08-21] MEDS: KETOROLAC 30MG/ML VIAL 15 MG IV (19:57)
[2024-08-21 20:02] LABS: Lipase 306 U/L (23-300)
[2024-08-21 20:26] LABS: Appearance,Urine Slightly Cloudy (Clear); Blood, Urine Trace (Negative); Color,Urine Yellow (Yellow); Glucose,Urine (UA) Negative (Negative); Ketones,Urine Trace (Negative); Nitrate,Urine POSITIVE (Negative); PH,Urine 5.5 (5.0-8.5); Protein,Urine Negative (Negative)
[2024-08-21 20:27] LABS: Bacteria,Urine 4+ /lpf; Bilirubin,Urine Negative (Negative); Leukocyte Esterase,Urine Trace (Negative); RBC,Urine Occasional #/hpf (0-3); Urobilinogen,Urine 0.2 EU/dl (0.2)
[2024-08-21] MEDS: IOPAMIDOL-370 (76%);100ML BOTTLE 75 ML IV (20:28)
[2024-08-21] MEDS: SODIUM CHLORIDE 0.9% 10ML SYR (RAD ONLY) 10 ML IV (20:28)
[2024-08-21 20:56] LABS: Procalcitonin 0.048 ng/mL (0.0-2.0)
--- NOTE | 2024-08-21 20:59 | PC.NURSE ---
[facility] on the phone with Kelly Van Gogh [employer].
--- NOTE | 2024-08-21 21:05 | PC.NURSE ---
Pt transferred to room 5 Report given to Silke PEREIRA
[2024-08-21] MEDS: LIDOCAINE 2% UROJET 10ML TP (21:30)
--- NOTE | 2024-08-21 21:36 | XR_ITS ---
PROCEDURE INFORMATION: Exam: XR Abdomen Exam date and time: 08/21/2024 9:47 PM Age: 74 years old Clinical indication: Device placement; Gi device; Nasogastric tube; Additional info: Ng tube placement TECHNIQUE: Imaging protocol: Radiologic exam of the abdomen. Views: Frontal supine view of the abdomen. 1 View. COMPARISON: CT ABDOMEN PELVIS W CON 08/21/2024 7:26 PM FINDINGS: Tubes, catheters and devices: NG tube has been placed extending into the distal stomach. Gastrointestinal tract: Scattered nondilated large and small bowel gas. Bones/joints: Unremarkable. IMPRESSION: NG tube in distal stomach.
--- NOTE | 2024-08-21 21:37 | PC.NURSE ---
NG placed in left Nare 70 cm nare line secured with tape
[2024-08-21] MEDS: PROMETHAZINE HCL 25MG/ML 1ML VIAL 25 MG IV (21:48)
--- NOTE | 2024-08-21 21:48 | PC.NURSE ---
Report called to Nellie PEREIRA Pt transported to floor via stretcher by EDT NG tube in place.
--- NOTE | 2024-08-21 22:01 | PC.NURSE ---
NG pulled to 68 cm nare line
--- NOTE | 2024-08-21 22:05 | PC.NURSE ---
Patient arrived to floor via wheelchair from ED at 22:04.
[2024-08-21 22:07] VITALS: BP 140/70; PULSE 88; RESP 20; TEMP 36.9; O2SAT 98
[2024-08-21] MEDS: LACTATED RINGERS 1000ML 1,000 ML 50 ML IV (22:23)
[2024-08-21 22:26] VITALS: BP 141/78; PULSE 98; RESP 17; TEMP 36.4; O2SAT 93; BMI 34.7
[2024-08-21 22:31] LABS: Procalcitonin 0.049 ng/mL (0.0-2.0)
--- NOTE | 2024-08-21 23:00 | PC.NURSE ---
unable to bring in home meds and CPAP (doesn't know settings) - states no one could find them at her house if she sent them after items.
--- NOTE | 2024-08-21 23:03 | PC.NURSE ---
NGT in left nare at 68cm on CLWS
[2024-08-22] VITALS: BP 114/55; PULSE 90; RESP 16; TEMP 36.6; O2SAT 94
[2024-08-22 04:00] VITALS: BP 104/64; PULSE 96; RESP 16; TEMP 36.8; O2SAT 93; BMI 34.3
[2024-08-22] MEDS: MORPHINE 2MG/ML SYRINGE 1 MG IV (04:19)
--- NOTE | 2024-08-22 07:22 | P.CONS_ITS ---
History of Present Illness *Admission Date: 08/22/24 *Reason for visit:: Bowel obstruction *History of present illness: Patient is a 74-year-old female with history of obstructive sleep apnea, diabetes, hypertension. She has previously undergone total abdominal hysterectomy via midline laparotomy in 2004. She had previous ventral hernias requiring repair, details unknown. Patient had developed a bowel obstruction secondary to apparent hernia in 2009 requiring surgical intervention and prolonged hospital stay at the [facility]. In September 2023 she had developed sharp lower abdominal pain and presented to the emergency department at which time CT scan revealed long segment of small bowel with tapering at the mid jejunum in the left lower quadrant. She was managed as an inpatient for bowel obstruction at that time nonoperatively and did have a small bowel follow-through which revealed probable ileus. Patient had presented to the emergency department overnight on 08/21/2024 with abdominal pain. She had a CT scan performed which revealed findings compatible with high-grade distal small bowel obstruction with mesenteric edema with an abrupt transition at the level of the small bowel anastomosis in the left mid abdomen with fecalization of the dilated segment adjacent to the anastomosis. Discussion was held with surgery relating the fact that the patient had evidence of bowel obstruction. She had a nasogastric tube placed. She was admitted to her primary physician for surgical consultation. Patient states that her last bowel movement was yesterday which time she moved her bowels several times. Subsequently has been passing some gas. She states that this morning her abdominal pain has improved. She still feels somewhat bloated. [facility] Disclaimer: The information contained in this section may have been updated after the patient was seen, as this information can be updated by other users. Medical History (Updated 08/21/24 @ 21:28 by FER Delatorre) Decreased diffusion capacity of lung SHILOH (obstructive sleep apnea) Dyspnea on exertion Bronchitis Sinusitis Asthma Viral syndrome COVID-19 Muscle strain Diabetes mellitus Breast cancer Arthritis Spinal cord stimulator status Hyperlipemia Hypertension SBO (small bowel obstruction) Surgical History H/O: hysterectomy H/O hernia repair Family History Other Diabetes Social History (Updated 08/22/24 @ 00:22 by Micaela Fraser RN) Smoking Status: Former smoker alcohol intake: never current occupational status: other Travel in the last 8 weeks: None Have you lived/traveled outside US in past 30 days?: No Contact w/someone who lives/traveled outside US past 30 days?: No Exposure to someone with infectious disease in past 14 days?: No Do you have a fever (greater than 100.4 F or 38 C)?: No Have you tested positive for COVID-19: No Exposed to someone with COVID-19 in past 14 days?: No Do you have a sore throat?: No Do you have a cough?: No Do you have any weakness?: No Do you have any diarrhea?: No Are you experiencing any unusual bleeding?: No Do you have any muscle aches/pain?: No Do you have any abdominal pain?: Yes Are you experiencing loss of taste or smell?: No Meds Home Medications and Allergies Home Medications ?Medication ?Instructions ?Recorded ?Confirmed ?Type atenolol 25 mg tablet 25 mg PO DAILY 90 days #90 tabs 07/04/18 08/21/24 History lansoprazole 30 mg capsule,delayed 30 mg PO DAILY 90 days #90 caps 07/04/18 08/21/24 History release simvastatin 20 mg tablet 20 mg PO HS 90 days #90 tabs 07/04/18 08/21/24 History gabapentin 800 mg tablet 800 mg PO TID 12/30/20 08/21/24 History lisinopril 10 1 tab PO DAILY 12/30/20 08/21/24 History mg-hydrochlorothiazide 12.5 mg tablet duloxetine 60 mg capsule,delayed 60 mg PO DAILY 10/05/23 08/21/24 History release albuterol sulfate 90 mcg/actuation 90 mcg inhalation NEEDED PRN 08/03/24 08/21/24 History aerosol inhaler Asthma calcium 100 mg capsule 100 mg PO DAILY 08/21/24 08/21/24 History New Prescriptions to Start Prescriptions: Allergies Allergy/AdvReac Type Severity Reaction Status Date / Time No Known Allergies Allergy Verified 08/21/24 18:28 Exam (Inpt) Vital signs and Labs for Last 24 Hours: Temp Pulse Resp BP Pulse Ox O2 Del Method 98.2 F 96 H 16 104/64 L 93 L Room Air 08/22/24 04:00 08/22/24 04:00 08/22/24 04:00 08/22/24 04:00 08/22/24 04:00 08/22/24 06:26 Laboratory Results - last 24 hr 08/21/24 17:05: WBC 11.0 H, RBC 5.19, Hgb 14.7, Hct 44.9, MCV 86.5, MCH 28.3, MCHC 32.7, RDW 13.2, Plt Count 214, MPV 9.8, Neut % (Auto) 80.3 H, Lymph % (Auto) 13.2, [place] % (Auto) 5.4, Eos % (Auto) 0.5, Baso % (Auto) 0.4, Neut # (Auto) 8.8 H, Lymph # (Auto) 1.5, [place] # (Auto) 0.6, Eos # (Auto) 0.1, Baso # (Auto) 0.0, Sodium 139, Potassium 3.8, Chloride 100, Carbon Dioxide 31 H, Anion Gap 11.8, BUN 11, Creatinine 0.70, Estimated Creat Clear 77, Estimated GFR 82, Est GFR ( Amer) 99, Glucose 141 H, Calcium 9.4, Total Bilirubin 0.4, AST 43 H, ALT 30, Alkaline Phosphatase 113, Total Protein 7.8, Albumin 4.7, Globulin 3.1, Albumin/Globulin Ratio 1.5, Lipase 269 08/21/24 17:05: Lipase 306 H, Procalcitonin 0.048 08/21/24 18:45: Procalcitonin 0.049 08/21/24 19:36: Urine Color Yellow, Urine Appearance Slightly cloudy, Urine pH 5.5, Ur Specific [place] 1.030, Urine Protein Negative, Urine Glucose (UA) Negative, Urine Ketones Trace, Urine Blood Trace A, Urine Nitrate Positive A, Urine Bilirubin Negative, Urine Urobilinogen 0.2, Ur Leukocyte Esterase Trace A, Urine RBC Occasional, Urine WBC 10-20, Ur Squamous Epith Cells 3-5, Urine Bacteria 4+ I & O for Labs for Last 24 Hours: Intake & Output 08/19/24 08/20/24 08/21/24 08/22/24 11:59 12:59 11:59 11:59 Intake Total 1340 / 1340 Output Total 0 / 0 Balance 1340 / 1340 Weight 218 lb 11.2 oz Constitutional: no acute distress GI: Present soft Comments:: Slightly distended. No appreciable tenderness. Results Labs 08/21/24 17:05 08/21/24 17:05 Labs: Laboratory Results - last 24 hr 08/21/24 17:05: WBC 11.0 H, RBC 5.19, Hgb 14.7, Hct 44.9, MCV 86.5, MCH 28.3, MCHC 32.7, RDW 13.2, Plt Count 214, MPV 9.8, Neut % (Auto) 80.3 H, Lymph % (Auto) 13.2, [place] % (Auto) 5.4, Eos % (Auto) 0.5, Baso % (Auto) 0.4, Neut # (Auto) 8.8 H, Lymph # (Auto) 1.5, [place] # (Auto) 0.6, Eos # (Auto) 0.1, Baso # (Auto) 0.0, Sodium 139, Potassium 3.8, Chloride 100, Carbon Dioxide 31 H, Anion Gap 11.8, BUN 11, Creatinine 0.70, Estimated Creat Clear 77, Estimated GFR 82, Est GFR ( Amer) 99, Glucose 141 H, Calcium 9.4, Total Bilirubin 0.4, AST 43 H, ALT 30, Alkaline Phosphatase 113, Total Protein 7.8, Albumin 4.7, Globulin 3.1, Albumin/Globulin Ratio 1.5, Lipase 269 08/21/24 17:05: Lipase 306 H, Procalcitonin 0.048 08/21/24 18:45: Procalcitonin 0.049 08/21/24 19:36: Urine Color Yellow, Urine Appearance Slightly cloudy, Urine pH 5.5, Ur Specific [place] 1.030, Urine Protein Negative, Urine Glucose (UA) Negative, Urine Ketones Trace, Urine Blood Trace A, Urine Nitrate Positive A, Urine Bilirubin Negative, Urine Urobilinogen 0.2, Ur Leukocyte Esterase Trace A, Urine RBC Occasional, Urine WBC 10-20, Ur Squamous Epith Cells 3-5, Urine Bacteria 4+ Assessment and Plan *Assessment and plan (1) SBO (small bowel obstruction): Status: Acute Category: Medical Code(s): K56.609 - Unspecified intestinal obstruction, unspecified as to partial versus complete obstruction Plan Attempted nonoperative management for now. Surgical intervention may be rather complicated given her prior abdominal surgery. I will see if I can obtain records from her previous surgery.
[2024-08-22 07:33] VITALS: BP 126/74; PULSE 100; RESP 15; TEMP 37; O2SAT 93
--- NOTE | 2024-08-22 07:54 | P.PN_ITS ---
Subjective *Date: 08/22/24 *Time: 07:54 Interval history: Patient admitted with abd pain/SBO at previous resection site, see CT scan. Medical Exam Vital signs and Labs for Last 24 Hours: Vital Signs Temp Pulse Pulse Resp BP BP Pulse Ox 08/22/24 07:33 98.6 F 100 H 15 126/74 93 L 08/22/24 06:26 08/22/24 05:00 08/22/24 04:00 98.2 F 96 H 16 104/64 L 93 L 08/22/24 02:59 08/22/24 01:00 08/22/24 00:00 97.9 F 90 16 114/55 L 94 L 08/21/24 23:00 08/21/24 22:26 97.6 F 98 H 17 141/78 H 93 L 08/21/24 22:07 98.4 F 88 20 140/70 08/21/24 21:44 08/21/24 16:54 98.1 F 93 H 18 142/76 H 98 O2 Del Method 08/22/24 07:33 Room Air 08/22/24 06:26 Room Air 08/22/24 05:00 Room Air 08/22/24 04:00 Room Air 08/22/24 02:59 Room Air 08/22/24 01:00 Room Air 08/22/24 00:00 Room Air 08/21/24 23:00 Room Air 08/21/24 22:26 Room Air 08/21/24 22:07 Room Air 08/21/24 21:44 Room Air 08/21/24 16:54 Intake and Output 08/21/24 08/21/24 08/22/24 15:59 23:59 07:59 Intake Total 1340 / 1340 Output Total 0 / 0 Balance 1340 / 1340 Intake: Intake, Total IV Amount 1340 / 1340 0.9 % Sodium Chloride 1000ML 1, 1000 / 1000 000 ml @ 999 mls/hr IV .Q1H1M ONE Rx#:[id number] Lactated Ringers 1000ML 1,000 340 / 340 ml @ 50 mls/hr IV .Q20H DAWSON Rx# :[id number] Output: Output, Urine Amount 0 / 0 Other: Number of Unmeasured Voids 1 Weight 221 lb 4.8 oz 218 lb 11.2 oz Patient Weight 08/22/24 23:59 Weight 218 lb 11.2 oz Laboratory Results - last 24 hr 08/21/24 17:05: WBC 11.0 H, RBC 5.19, Hgb 14.7, Hct 44.9, MCV 86.5, MCH 28.3, MCHC 32.7, RDW 13.2, Plt Count 214, MPV 9.8, Neut % (Auto) 80.3 H, Lymph % (Auto) 13.2, [place] % (Auto) 5.4, Eos % (Auto) 0.5, Baso % (Auto) 0.4, Neut # (Auto) 8.8 H, Lymph # (Auto) 1.5, [place] # (Auto) 0.6, Eos # (Auto) 0.1, Baso # (Auto) 0.0, Sodium 139, Potassium 3.8, Chloride 100, Carbon Dioxide 31 H, Anion Gap 11.8, BUN 11, Creatinine 0.70, Estimated Creat Clear 77, Estimated GFR 82, Est GFR ( Amer) 99, Glucose 141 H, Calcium 9.4, Total Bilirubin 0.4, AST 43 H, ALT 30, Alkaline Phosphatase 113, Total Protein 7.8, Albumin 4.7, Globulin 3.1, Albumin/Globulin Ratio 1.5, Lipase 269 08/21/24 17:05: Lipase 306 H, Procalcitonin 0.048 08/21/24 18:45: Procalcitonin 0.049 08/21/24 19:36: Urine Color Yellow, Urine Appearance Slightly cloudy, Urine pH 5.5, Ur Specific [place] 1.030, Urine Protein Negative, Urine Glucose (UA) Negative, Urine Ketones Trace, Urine Blood Trace A, Urine Nitrate Positive A, Urine Bilirubin Negative, Urine Urobilinogen 0.2, Ur Leukocyte Esterase Trace A, Urine RBC Occasional, Urine WBC 10-20, Ur Squamous Epith Cells 3-5, Urine Bacteria 4+ I & O for Labs for Last 24 Hours: Intake & Output 08/19/24 08/21/24 08/21/24 08/22/24 23:59 00:59 23:59 23:59 Intake Total 1340 / 1340 Output Total 0 / 0 Balance 1340 / 1340 Weight 221 lb 4.8 oz 218 lb 11.2 oz Constitutional: Present no acute distress Comment:: NG tube in place Assessment and Plan *Assessment and plan (1) SBO (small bowel obstruction): Status: Acute Category: Medical Code(s): K56.609 - Unspecified intestinal obstruction, unspecified as to partial versus complete obstruction (2) Diabetes mellitus: Status: Acute Qualifiers: Diabetes mellitus type: type 2 Diabetes mellitus intermodal customer service insulin use: unspecified care home insulin use status Diabetes mellitus complication status: without complication Qualified Code(s): E11.9 - Type 2 diabetes mellitus without complications Category: Medical Code(s): E11.9 - Type 2 diabetes mellitus without complications (3) Hypertension: Status: Acute Qualifiers: Hypertension type: primary hypertension Qualified Code(s): I10 - Essential (primary) hypertension Category: Medical Code(s): I10 - Essential (primary) hypertension Plan Admitted for surgical consult, bowel rest and NG tube. H&P to follow.
--- NOTE | 2024-08-22 08:21 | HMH.PHAINT1 ---
Pharmacy Intervention Comments: home medication list verified using list from [facility] pharmacy and pt interview
--- NOTE | 2024-08-22 08:27 | P.HP_ITS ---
History of Present Illness *Admission Date: 08/22/24 *History of present illness: Ms. Harding is a 74-year-old female with a history of hypertension, hyperlipidemia, insomnia, asthma, left breast cancer, right breast cancer, pulmonary embolism, incisional hernia repair, idiopathic neuropathy, back pain chronic with stimulator in place, and diabetes mellitus,. She is noted to have previously undergone total abdominal hysterectomy via midline laparotomy in 2004 and previous ventral hernias requiring repair. She had developed a bowel obstruction secondary to apparent hernia in 2009 requiring surgical intervention and prolonged hospital stay at the [facility]. In September 2023 she developed sharp low abdominal pain and presented to the emergency room at which time CT scan revealed long segment of small bowel with tapering at the mid you Taylor in the left lower quadrant. She was managed as an inpatient for bowel obstruction at that time nonoperatively and did have a small bowel follow-through which revealed probable ileus. The patient presented again to the emergency room 08/21/2024 with severe abdominal pain which she describes as coming in waves. She did develop nausea and had some vomiting. She had had a normal bowel movement yesterday in the AM. Prior to this pain event she had been doing well and in the a.m. actually ate breakfast without difficulties. With evaluation in the emergency room she had a CT scan which revealed findings of compatible with high-grade distal small bowel obstruction with mesenteric edema and an abrupt transition at the level of the small bowel anastomosis in the left mid abdomen with fecalization of the dilated segment adjacent to the anastomosis. Dr. Love was consulted. She had an NG tube placed and decision was to admit her for ongoing care and evaluation. WBC was noted to be elevated at 11,000. Liver function studies showed mildly elevated elevated AST at 43. Urine showed positive nitrates with 4+ bacteria. She was given promethazine, IV fluid boluses, ketorolac, and Zofran. This a.m. patient is feeling better. She said the abdominal pain has subsided. NG tube remains in place to low wall suction. She has been seen by Dr. Love, surgery,Who plans for nonoperative management for now. She remains NPO. [facility] Disclaimer: The information contained in this section may have been updated after the pat ient was seen, as this information can be updated by other users. Medical History (Updated 08/22/24 @ 08:41 by Gabby Porter APRN) Decreased diffusion capacity of lung SHILOH (obstructive sleep apnea) Dyspnea on exertion Bronchitis Sinusitis Asthma Viral syndrome COVID-19 Muscle strain Diabetes mellitus Breast cancer Arthritis Spinal cord stimulator status Hyperlipemia Hypertension SBO (small bowel obstruction) Surgical History (Updated 08/22/24 @ 08:35 by Gabby Porter APRN) S/P lumpectomy, right breast Status post left breast lumpectomy H/O: hysterectomy H/O hernia repair Family History Other Diabetes Social History (Updated 08/22/24 @ 00:22 by Micaela Fraser RN) Smoking Status: Former smoker alcohol intake: never current occupational status: other Travel in the last 8 weeks: None Have you lived/traveled outside [place] in past 30 days?: No Contact w/someone who lives/traveled outside US past 30 days?: No Exposure to someone with infectious disease in past 14 days?: No Do you have a fever (greater than 100.4 F or 38 C)?: No Have you tested positive for COVID-19: No Exposed to someone with COVID-19 in past 14 days?: No Do you have a sore throat?: No Do you have a cough?: No Do you have any weakness?: No Do you have any diarrhea?: No Are you experiencing any unusual bleeding?: No Do you have any muscle aches/pain?: No Do you have any abdominal pain?: Yes Are you experiencing loss of taste or smell?: No Other Medical History Have you received the Flu Vaccine for this season: Yes Have you received the Pneumonia Vaccine: No Review of Systems Constitutional Constitutional: Denies body ache(s), Denies fever(s), Denies headache(s) and Reports lethargy Eyes Eyes: Denies change in vision ENT Ears, Nose, Mouth, and Throat: Denies dizziness, Denies otalgia, Denies headache(s), Denies sore throat and Denies vertigo *Cardiovascular Cardiovascular: Denies chest pain, Reports dyspnea, Denies edema and Denies palpitations *Respiratory Respiratory: Reports cough (States she always has a cough) and Reports dyspnea *Gastrointestinal Gastrointestinal: Reports abdominal pain, Reports bloating, Denies change in stool character, Denies constipation, Denies hematemesis, Denies hematochezia, Denies melena, Reports nausea and Reports vomiting *Genitourinary Genitourinary: Denies difficulty voiding *Musculoskeletal Musculoskeletal: Reports arthralgias (Back pain) and Reports back pain (Sees pain management and has a back stimulator in place) *Neurologic Neurologic: Denies confusion, Denies dizziness, Denies headache(s) and Denies vertigo Psychiatric Psychiatric: Denies confusion Endocrine Endocrine: Denies palpitations Meds Home Medications and Allergies Home Medications ?Medication ?Instructions ?Recorded ?Confirmed ?Type atenolol 25 mg tablet 25 mg PO DAILY 90 days #90 tabs 07/04/18 08/21/24 History lansoprazole 30 mg capsule,delayed 30 mg PO DAILY 90 days #90 caps 07/04/18 08/21/24 History release simvastatin 20 mg tablet 20 mg PO HS 90 days #90 tabs 07/04/18 08/21/24 History gabapentin 800 mg tablet 800 mg PO 1900,2200 Neuropathy 12/30/20 08/22/24 History lisinopril 10 1 tab PO DAILY 12.5MG 12/30/20 08/21/24 History mg-hydrochlorothiazide 12.5 mg tablet duloxetine 60 mg capsule,delayed 60 mg PO DAILY 10/05/23 08/21/24 History release albuterol sulfate 90 mcg/actuation 90 mcg inhalation NEEDED PRN 08/03/24 08/21/24 History aerosol inhaler Asthma calcium 100 mg capsule 100 mg PO DAILY 08/21/24 08/21/24 History New Prescriptions to Start Prescriptions: Allergies Allergy/AdvReac Type Severity Reaction Status Date / Time No Known Allergies Allergy Verified 08/21/24 18:28 Exam Data for Last 24 hours Vital signs and Labs for Last 24 Hours: Temp Pulse Resp BP Pulse Ox O2 Del Method 98.6 F 100 H 15 126/74 93 L Room Air 08/22/24 07:33 08/22/24 07:33 08/22/24 07:33 08/22/24 07:33 08/22/24 07:33 08/22/24 07:33 Laboratory Results - last 24 hr 08/21/24 17:05: WBC 11.0 H, RBC 5.19, Hgb 14.7, Hct 44.9, MCV 86.5, MCH 28.3, MCHC 32.7, RDW 13.2, Plt Count 214, MPV 9.8, Neut % (Auto) 80.3 H, Lymph % (Auto) 13.2, [place] % (Auto) 5.4, Eos % (Auto) 0.5, Baso % (Auto) 0.4, Neut # (Auto) 8.8 H, Lymph # (Auto) 1.5, [place] # (Auto) 0.6, Eos # (Auto) 0.1, Baso # (Auto) 0.0, Sodium 139, Potassium 3.8, Chloride 100, Carbon Dioxide 31 H, Anion Gap 11.8, BUN 11, Creatinine 0.70, Estimated Creat Clear 77, Estimated GFR 82, Est GFR ( Amer) 99, Glucose 141 H, Calcium 9.4, Total Bilirubin 0.4, AST 43 H, ALT 30, Alkaline Phosphatase 113, Total Protein 7.8, Albumin 4.7, Globulin 3.1, Albumin/Globulin Ratio 1.5, Lipase 269 08/21/24 17:05: Lipase 306 H, Procalcitonin 0.048 08/21/24 18:45: Procalcitonin 0.049 08/21/24 19:36: Urine Color Yellow, Urine Appearance Slightly cloudy, Urine pH 5.5, Ur Specific [place] 1.030, Urine Protein Negative, Urine Glucose (UA) Negative, Urine Ketones Trace, Urine Blood Trace A, Urine Nitrate Positive A, Urine Bilirubin Negative, Urine Urobilinogen 0.2, Ur Leukocyte Esterase Trace A, Urine RBC Occasional, Urine WBC 10-20, Ur Squamous Epith Cells 3-5, Urine Bacteria 4+ I & O for Last 24 hours: Intake & Output 08/19/24 08/20/24 08/21/24 08/22/24 11:59 12:59 11:59 11:59 Intake Total 1340 / 1340 Output Total 0 / 0 Balance 1340 / 1340 Weight 218 lb 11.2 oz Constitutional Constitutional: no acute distress Comments: Lying comfortably in bed. NG tube is in place. *Routine HEENT Exam Head: Present normocephalic and atraumatic Eye: Present PERRL; Absent conjunctival icterus, scleral injection or conjunctivae pink ENT: Present mucous membranes moist and oropharynx clear *Routine Neck Exam Neck: Present supple; Absent carotid bruit, lymphadenopathy or thyromegaly *Routine Respiratory Exam Respiratory: Present CTA bilaterally (Anteriorly and posteriorly) *Routine Cardiovascular Exam Cardiovascular: Present RRR *Routine Abdominal Exam Abdominal: Present soft, normoactive bowel sounds, distended and obese; Absent tenderness or guarding *Routine Rectal Exam Rectal:: deferred *Routine Genitalia Exam Genitalia:: deferred *Routine Extremities Exam Extremities: Present pulses intact; Absent edema or calf tenderness *Routine Neurological Exam Neurological: Present alert and oriented X3 Assessment and Plan *Assessment and plan (1) SBO (small bowel obstruction): Status: Acute Category: Medical Code(s): K56.609 - Unspecified intestinal obstruction, unspecified as to partial versus complete obstruction (2) Diabetes mellitus: Status: Acute Qualifiers: Diabetes mellitus complication status: without complication Diabetes mellitus terminal operator insulin use: unspecified terminal operator insulin use status Jovana betes mellitus type: type 2 Qualified Code(s): E11.9 - Type 2 diabetes mellitus without complications Category: Medical Code(s): E11.9 - Type 2 diabetes mellitus without complications (3) Hypertension: Status: Acute Qualifiers: Hypertension type: primary hypertension Qualified Code(s): I10 - Essential (primary) hypertension Category: Medical Code(s): I10 - Essential (primary) hypertension (4) Urinary tract infection: Status: Acute Category: Medical Code(s): N39.0 - Urinary tract infection, site not specified Plan Admitted for surgical consult, bowel rest and NG tube. Rocephin initiated for urinary tract infection. Dr. Garrido entry - Saw patient, agree with above note.
[2024-08-22] MEDS: CEFTRIAXONE 1 GM 1 GM in 0.9 % SODIUM CHLORIDE 50 ML IV (08:48)
[2024-08-22 11:42] VITALS: BP 149/71; PULSE 98; RESP 18; TEMP 36.8; O2SAT 94
[2024-08-22 16:00] VITALS: BP 144/77; PULSE 100; RESP 16; TEMP 36.9; O2SAT 93
[2024-08-22] MEDS: ACETAMINOPHEN 325MG TAB 650 MG PO (18:59)
--- NOTE | 2024-08-22 19:25 | PC.NURSE ---
AOX4, NG TUBE REMAINS IN PLACE. NO C/O PAIN TODAY UNTIL THIS EVENING. DR PAGE GAVE V/O FOR 650MG TYLENOL.
[2024-08-22 19:42] VITALS: BP 123/66; PULSE 95; RESP 16; TEMP 36.8; O2SAT 93
[2024-08-22] MEDS: GABAPENTIN 400MG CAPSULE 800 MG NG-TUBE (21:39)
[2024-08-22] MEDS: LACTATED RINGERS 1000ML 1,000 ML 50 ML IV (21:46)
[2024-08-23] VITALS: BP 143/67; PULSE 97; RESP 18; TEMP 36.8; O2SAT 92
[2024-08-23 04:00] VITALS: BP 134/72; PULSE 94; RESP 17; TEMP 36.7; O2SAT 90; BMI 34.1
--- NOTE | 2024-08-23 04:06 | PC.NURSE ---
Pt. is alert and orientated x4. Pt. is on room air. Pt. has had a good night. She had a headache that was relieved some by Tylenol than much better when she got her dose of Gabapentin. Pt. has an NG tube to left nare on continuous low wall suction. NG output is green in color. Pt. denies any abdominal pain. No N/V/D. Pt. sleeping well this shift. VSS. Personal items and call desai in reach.
[2024-08-23 06:05] LABS: Basophils % 0.3 % (0.1-2.0); Eosinophils # 0.1 K/mm3 (0.0-0.4); Eosinophils % 1.9 % (0.1-12.0); Hemoglobin 12.6 g/dL (12.2-16.2); Lymphocytes # 1.7 K/mm3 (0.7-4.5); Lymphocytes % 27.1 % (10-50); Mean Corpuscular HGB Conc 32.3 g/dL (31.8-35.4); Mean Corpuscular Hemoglobin 27.9 pg (27.0-31.2); Mean Corpuscular Volume 86.3 fl (81-99); Mean Platelet Volume 9.6 fl (7.4-10.4); Monocytes # 0.5 K/mm3 (0.1-1.0); Monocytes % 7.6 % (1.7-9.3); Neutrophils % 62.9 % (37.0-80.0); Platelet Count 175 K/mm3 (142-424); Red Blood Count 4.52 M/mm3 (4.20-5.40); Red Cell Distribution Width 13.5 % (11.5-17.5); White Blood Count 6.3 K/mm3 (4.8-10.8)
[2024-08-23 06:20] LABS: Alanine Aminotransferase 20 U/L (12-78); Albumin Level 3.6 g/dl (3.5-5.0); Albumin/Globulin Ratio 1.4 (1.1-1.8); Alkaline Phosphatase 81 U/L (38-126); Anion Gap 7.4 mEq/L (5-15); Aspartate Amino Transferase 29 U/L (14-36); Bilirubin,Total 0.4 mg/dl (0.2-1.3); Blood Urea Nitrogen 10 mg/dl (7-17); Calcium 8.5 mg/dl (8.4-10.2); Carbon Dioxide 36 mmol/L (22.0-30.0); Chloride 99 mmol/L (98-107); Creatinine Clearance Estimated 76 mL/min (50-200); Estimated Glomerular Filt Rate 82 ml/min (>60); GFR (African American) 99 ML/MIN (>60); Globulin 2.6 g/dL (1.3-3.2); Glucose 112 mg/dl (74-100); Potassium 3.4 mmoL/L (3.5-5.1); Sodium 139 mmol/L (136-145); Total Protein,Serum 6.2 g/dl (6.3-8.2)
[2024-08-23 07:29] VITALS: BP 140/77; PULSE 100; RESP 16; TEMP 37.2; O2SAT 91
--- NOTE | 2024-08-23 07:36 | XR_ITS ---
FINAL REPORT CLINICAL HISTORY: ABDOMINAL PAIN, BOWEL OBSTRUCTION COMPARISON: 08/22/2024 FINDINGS: Chest: The heart and mediastinal within normal limits. The lungs are clear. There is no pneumothorax. Osseous structures are unremarkable. Surgical clips are noted in the left axilla. Abdomen: AP and upright views of the abdomen were obtained. An NG tube is present with the tip in the gastric antrum. There is a moderate amount of stool in the colon, not significantly changed from the previous exam. No abnormal calcifications are identified. There is significant lumbar scoliosis convex to the right measuring about 35 degrees. A spinal stimulator is present in the lower thoracic spine. IMPRESSION: No acute cardiopulmonary process. Moderate stool burden, not significantly changed. Reviewed, Interpreted and Dictated by Marlo Pereira MD Transcribed by Kassandra Marx Authenticated and [facility]
--- NOTE | 2024-08-23 07:52 | P.PN_ITS ---
Subjective Narrative: Patient feels better. Pain has resolved. Passing gas. No bowel movements. Abdomen less distended. No recorded output from nasogastric tube but patient states that canister was emptied. Exam Data for Last 24 hours Vital signs and Labs for Last 24 Hours: Temp Pulse Resp BP Pulse Ox O2 Del Method 99.0 F 100 H 16 140/77 91 L Room Air 08/23/24 07:29 08/23/24 07:29 08/23/24 07:29 08/23/24 07:29 08/23/24 07:29 08/23/24 07:29 Laboratory Results - last 24 hr 08/23/24 05:45: WBC 6.3 D, RBC 4.52, Hgb 12.6, Hct 39.0, MCV 86.3, MCH 27.9, MCHC 32.3, RDW 13.5, Plt Count 175, MPV 9.6, Neut % (Auto) 62.9, Lymph % (Auto) 27.1, [place] % (Auto) 7.6, Eos % (Auto) 1.9, Baso % (Auto) 0.3, Neut # (Auto) 4.0, Lymph # (Auto) 1.7, [place] # (Auto) 0.5, Eos # (Auto) 0.1, Baso # (Auto) 0.0, Sodium 139, Potassium 3.4 L, Chloride 99, Carbon Dioxide 36 H, Anion Gap 7.4, BUN 10, Creatinine 0.70, Estimated Creat Clear 76, Estimated GFR 82, Est GFR ( Amer) 99, Glucose 112 H, Calcium 8.5, Total Bilirubin 0.4, AST 29 D, ALT 20 D, Alkaline Phosphatase 81, Total Protein 6.2 L, Albumin 3.6, Globulin 2.6, Albumin/Globulin Ratio 1.4 I & O for Last 24 hours: Intake & Output 08/20/24 08/21/24 08/22/24 08/23/24 12:59 11:59 11:59 11:59 Intake Total 1340 / 1340 160 / 160 Output Total 0 / 0 0 / 0 Balance 1340 / 1340 160 / 160 Weight 218 lb 11.2 oz 217 lb 6.4 oz *Routine Abdominal Exam Abdominal: Present soft; Absent tenderness Progress Note: A&P Assessment and plan (1) SBO (small bowel obstruction): Status: Acute Assessment and plan: Check acute abdominal series. Place NG to gravity bag. (2) Diabetes mellitus: Status: Acute (3) Hypertension: Status: Acute (4) Urinary tract infection: Status: Acute
--- NOTE | 2024-08-23 08:37 | P.PN_ITS ---
Subjective *Date: 08/23/24 *Time: 08:52 Interval history: Patient is feeling a little bit better this morning. She only has slight abdominal pain in the lower abdomen and denies any nausea. She has had good output in her NG tube. She slept better last night Medical Exam Vital signs and Labs for Last 24 Hours: Vital Signs Temp Pulse Resp BP Pulse Ox O2 Del Method 08/23/24 08:00 Room Air 08/23/24 07:29 99.0 F 100 H 16 140/77 91 L Room Air 08/23/24 07:00 Room Air 08/23/24 05:00 Room Air 08/23/24 04:00 98.0 F 94 H 17 134/72 90 L Room Air 08/23/24 03:00 Room Air 08/23/24 01:00 Room Air 08/23/24 00:00 98.2 F 97 H 18 143/67 H 92 L Room Air 08/22/24 23:00 Room Air 08/22/24 21:00 Room Air 08/22/24 20:00 Room Air 08/22/24 19:42 98.3 F 95 H 16 123/66 93 L Room Air 08/22/24 18:31 Room Air 08/22/24 16:56 Room Air 08/22/24 16:00 98.4 F 100 H 16 144/77 H 93 L Room Air 08/22/24 15:00 Room Air 08/22/24 12:34 Room Air 08/22/24 11:42 98.3 F 98 H 18 149/71 H 94 L Room Air 08/22/24 11:00 Room Air 08/22/24 09:00 Room Air Intake and Output 08/22/24 08/23/24 08/23/24 19:59 03:59 11:59 Intake Total 160 / 160 Output Total 0 / 0 0 / 0 Balance 0 / 160 160 / 160 0 / 160 Intake: Intake, Total IV Amount 160 / 160 Ceftriaxone 1 gm 1 gm In 0.9 % 50 / 50 Sodium Chloride 50 ml @ 100 mls /hr IV Q24H [facility] Rx#:[id number] Lactated Ringers 1000ML 1,000 110 / 110 ml @ 50 mls/hr IV .Q20H [facility] Rx# :[id number] Output: Output, Urine Amount 0 / 0 0 / 0 Other: Number of Unmeasured Voids 1 Weight 217 lb 6.4 oz Patient Weight 08/23/24 11:59 Weight 217 lb 6.4 oz Laboratory Results - last 24 hr 08/21/24 19:36: Urine Color Yellow, Urine Appearance Slightly cloudy, Urine pH 5.5, Ur Specific [place] 1.030, Urine Protein Negative, Urine Glucose (UA) Negative, Urine Ketones Trace, Urine Blood Trace A, Urine Nitrate Positive A, Urine Bilirubin Negative, Urine Urobilinogen 0.2, Ur Leukocyte Esterase Trace A, Urine RBC Occasional, Urine WBC 10-20, Ur Squamous Epith Cells 3-5, Urine Bacteria 4+ 08/23/24 05:45: WBC 6.3 D, RBC 4.52, Hgb 12.6, Hct 39.0, MCV 86.3, MCH 27.9, MCHC 32.3, RDW 13.5, Plt Count 175, MPV 9.6, Neut % (Auto) 62.9, Lymph % (Auto) 27.1, [place] % (Auto) 7.6, Eos % (Auto) 1.9, Baso % (Auto) 0.3, Neut # (Auto) 4.0, Lymph # (Auto) 1.7, [place] # (Auto) 0.5, Eos # (Auto) 0.1, Baso # (Auto) 0.0, Sodium 139, Potassium 3.4 L, Chloride 99, Carbon Dioxide 36 H, Anion Gap 7.4, BUN 10, Creatinine 0.70, Estimated Creat Clear 76, Estimated GFR 82, Est GFR ( Amer) 99, Glucose 112 H, Calcium 8.5, Total Bilirubin 0.4, AST 29 D, ALT 20 D, Alkaline Phosphatase 81, Total Protein 6.2 L, Albumin 3.6, Globulin 2.6, Albumin/Globulin Ratio 1.4 I & O for Labs for Last 24 Hours: Intake & Output 08/20/24 08/21/24 08/22/24 08/23/24 12:59 11:59 11:59 11:59 Intake Total 1340 / 1340 160 / 160 Output Total 0 / 0 0 / 0 Balance 1340 / 1340 160 / 160 Weight 218 lb 11.2 oz 217 lb 6.4 oz Microbiology Reports for the Last 24 Hours: Microbiology 08/21/24 19:36 Urine,Clean Catch Urine Culture - Preliminary Gram Negative Rods Constitutional: Present no acute distress Respiratory: Present CTA bilaterally Cardiac: Present Reg Rate and Rhythm GI: Present soft, tenderness (in the lower abdomen) and diminished bowel sounds Comments:: NG tube in place Extremities: Absent edema Skin: Present intact Neuro: Present alert, awake and oriented x 3 Assessment and Plan *Assessment and plan (1) SBO (small bowel obstruction): Status: Acute Category: Medical Code(s): K56.609 - Unspecified intestinal obstruction, unspecified as to partial versus complete obstruction (2) Diabetes mellitus: Status: Acute Qualifiers: Diabetes mellitus complication status: without complication Diabetes mellitus long term care administrator insulin use: unspecified care home insulin use status Diabetes mellitus type: type 2 Qualified Code(s): E11.9 - Type 2 diabetes mellitus without complications Category: Medical Code(s): E11.9 - Type 2 diabetes mellitus without complications (3) Hypertension: Status: Acute Qualifiers: Hypertension type: primary hypertension Qualified Code(s): I10 - Essential (primary) hypertension Category: Medical Code(s): I10 - Essential (primary) hypertension (4) Urinary tract infection: Status: Acute Category: Medical Code(s): N39.0 - Urinary tract infection, site not specified Plan Will continue bowel rest and NG tube. Continue Rocephin for urinary tract infection. Surgery to follow. Dr. Love has ordered imaging this am. Dr. Garrido entry - Saw patient, agree with above note.
[2024-08-23] MEDS: CEFTRIAXONE 1 GM 1 GM in 0.9 % SODIUM CHLORIDE 50 ML IV (08:47)
[2024-08-23 12:00] VITALS: BP 131/67; PULSE 98; RESP 17; TEMP 36.9; O2SAT 93
[2024-08-23] MEDS: LACTATED RINGERS 1000ML 1,000 ML 50 ML IV (15:39)
[2024-08-23 16:00] VITALS: BP 147/76; PULSE 116; RESP 16; TEMP 36.5; O2SAT 93
--- NOTE | 2024-08-23 18:04 | PC.NURSE ---
NO C/O N/V OR ABD PAIN TODAY. PT SAT UP TO CHAIR FOR MOST OF SHIFT. CURRENTLY ASLEEP IN BED. NG TUBE PLACED TO DRAINAGE BAG THIS AM NO OUTPUT SINCE THEN.
[2024-08-23 19:47] VITALS: BP 163/82; PULSE 109; RESP 16; TEMP 37.5; O2SAT 92
[2024-08-23] MEDS: PHENOL THROAT SPRAY 177 ML BOTTLE MM (20:09)
[2024-08-23] MEDS: ONDANSETRON 4MG/2ML VIAL 4 MG IV (22:00)
[2024-08-23] MEDS: ATENOLOL 25MG TABLET 25 MG PO (22:29)
[2024-08-24] VITALS: BP 132/73; PULSE 85; RESP 16; TEMP 36.8; O2SAT 93
[2024-08-24 04:00] VITALS: BP 140/78; PULSE 74; RESP 16; TEMP 36.7; O2SAT 94; BMI 34.1
[2024-08-24 06:47] LABS: Basophils % 0.1 % (0.1-2.0); Eosinophils # 0.1 K/mm3 (0.0-0.4); Eosinophils % 1.1 % (0.1-12.0); Hematocrit 39.3 % (37.0-47.0); Hemoglobin 12.8 g/dL (12.2-16.2); Lymphocytes # 1.7 K/mm3 (0.7-4.5); Lymphocytes % 24.7 % (10-50); Mean Corpuscular HGB Conc 32.6 g/dL (31.8-35.4); Mean Corpuscular Hemoglobin 28.4 pg (27.0-31.2); Mean Corpuscular Volume 87.1 fl (81-99); Mean Platelet Volume 9.6 fl (7.4-10.4); Monocytes # 0.6 K/mm3 (0.1-1.0); Monocytes % 8.7 % (1.7-9.3); Neutrophils # 4.6 K/mm3 (1.8-7.8); Neutrophils % 65.3 % (37.0-80.0); Platelet Count 182 K/mm3 (142-424); Red Blood Count 4.51 M/mm3 (4.20-5.40); Red Cell Distribution Width 13.4 % (11.5-17.5)
--- NOTE | 2024-08-24 06:50 | EXP.ACUTE.PN ---
Subjective *Date: 08/24/24 *Time: 06:50 Interval history: Patient with one bought of nausea overnight, no vomiting. Medical Exam Vital signs and Labs for Last 24 Hours: Vital Signs Temp Pulse Resp BP Pulse Ox O2 Del Method 08/24/24 04:00 98.0 F 74 16 140/78 94 L Room Air 08/24/24 03:00 Room Air 08/24/24 01:00 Room Air 08/24/24 00:00 98.3 F 85 16 132/73 93 L Room Air 08/23/24 23:00 Room Air 08/23/24 21:00 Room Air 08/23/24 20:00 Room Air 08/23/24 19:47 99.5 F 109 H 16 163/82 H 92 L Room Air 08/23/24 19:00 Room Air 08/23/24 17:00 Room Air 08/23/24 16:00 97.7 F 116 H 16 147/76 H 93 L Room Air 08/23/24 15:00 Room Air 08/23/24 13:00 Room Air 08/23/24 12:00 98.4 F 98 H 17 131/67 93 L Room Air 08/23/24 11:00 Room Air 08/23/24 09:00 Room Air 08/23/24 08:00 Room Air 08/23/24 07:29 99.0 F 100 H 16 140/77 91 L Room Air 08/23/24 07:00 Room Air Intake and Output 08/23/24 08/23/24 08/24/24 15:59 23:59 07:59 Intake Total 0 / 560 400 / 400 Output Total 0 / 0 0 / 0 Balance 0 / 560 0 / 560 400 / 400 Intake: Intake, Oral Amount 0 / 0 Intake, Total IV Amount 400 / 400 Lactated Ringers 1000ML 1,000 400 / 400 ml @ 50 mls/hr IV .Q20H [facility] Rx# :[id number] Output: Output, Urine Amount 0 / 0 0 / 0 Other: Number of Unmeasured Voids 1 Weight 217 lb 6.4 oz Patient Weight 08/24/24 23:59 Weight 217 lb 6.4 oz Laboratory Results - last 24 hr 08/21/24 19:36: Urine Color Yellow, Urine Appearance Slightly cloudy, Urine pH 5.5, Ur Specific [place] 1.030, Urine Protein Negative, Urine Glucose (UA) Negative, Urine Ketones Trace, Urine Blood Trace A, Urine Nitrate Positive A, Urine Bilirubin Negative, Urine Urobilinogen 0.2, Ur Leukocyte Esterase Trace A, Urine RBC Occasional, Urine WBC 10-20, Ur Squamous Epith Cells 3-5, Urine Bacteria 4+ 08/24/24 06:20: WBC 7.0, RBC 4.51, Hgb 12.8, Hct 39.3, MCV 87.1, MCH 28.4, MCHC 32.6, RDW 13.4, Plt Count 182, MPV 9.6, Neut % (Auto) 65.3, Lymph % (Auto) 24.7, [place] % (Auto) 8.7, Eos % (Auto) 1.1, Baso % (Auto) 0.1, Neut # (Auto) 4.6, Lymph # (Auto) 1.7, [place] # (Auto) 0.6, Eos # (Auto) 0.1, Baso # (Auto) 0.0 I & O for Labs for Last 24 Hours: Intake & Output 08/21/24 08/22/24 08/23/24 08/24/24 23:59 23:59 23:59 23:59 Intake Total 1340 / 1500 160 / 560 400 / 400 Output Total 0 / 0 0 / 0 Balance 1340 / 1500 160 / 560 400 / 400 Weight 221 lb 4.8 oz 218 lb 11.2 oz 217 lb 6.4 oz 217 lb 6.4 oz Microbiology Reports for the Last 24 Hours: Microbiology 08/21/24 19:36 Urine,Clean Catch Urine Culture - Preliminary Gram Negative Rods Constitutional: Present no acute distress Respiratory: Present CTA bilaterally Cardiac: Present Reg Rate and Rhythm GI: Present soft, tenderness (in the lower abdomen) and diminished bowel sounds Comments:: NG tube in place Extremities: Absent edema Skin: Present intact Neuro: Present alert, awake and oriented x 3 Assessment and Plan *Assessment and plan (1) SBO (small bowel obstruction): Status: Acute Category: Medical Code(s): K56.609 - Unspecified intestinal obstruction, unspecified as to partial versus complete obstruction (2) Diabetes mellitus: Status: Acute Qualifiers: Diabetes mellitus type: type 2 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 termite exterminator insulin use status Diabetes mellitus complication status: without complication Qualified Code(s): E11.9 - Type 2 diabetes mellitus without complications Category: Medical Code(s): E11.9 - Type 2 diabetes mellitus without complications (3) Hypertension: Status: Acute Qualifiers: Hypertension type: primary hypertension Qualified Code(s): I10 - Essential (primary) hypertension Category: Medical Code(s): I10 - Essential (primary) hypertension (4) Urinary tract infection: Status: Acute Category: Medical Code(s): N39.0 - Urinary tract infection, site not specified Plan Patient is improving clinically, recheck KUB today, may be able to remove NG tube.
--- NOTE | 2024-08-24 06:52 | XR_ITS ---
FINAL REPORT TECHNIQUE: 4 views of the abdomen and a single view of the chest CLINICAL HISTORY: Abd pain, bowel obstruction COMPARISON: None FINDINGS: A PA view of the chest was obtained. The cardiac and mediastinal silhouettes are within normal limits. The lungs are clear. There is no free air beneath the diaphragm. There are stimulator leads present overlying the thoracic spine. Upright and supine views of the abdomen reveal a normal bowel gas pattern. There is no evidence of small bowel obstruction. There are no pathologic calcifications. There is 35 degrees of lumbar dextroscoliosis present. IMPRESSION: No acute intrathoracic or intraabdominal abnormality. Reviewed, Interpreted and Dictated by Marlo Pereira MD Transcribed by Darlene Arce Authenticated and [facility]
[2024-08-24 07:28] LABS: Anion Gap 9.5 mEq/L (5-15); Blood Urea Nitrogen 10 mg/dl (7-17); Calcium 8.7 mg/dl (8.4-10.2); Carbon Dioxide 32 mmol/L (22.0-30.0); Chloride 101 mmol/L (98-107); Creatinine Clearance Estimated 76 mL/min (50-200); Estimated Glomerular Filt Rate 97 ml/min (>60); GFR (African American) 118 ML/MIN (>60); Glucose 107 mg/dl (74-100); Potassium 3.5 mmoL/L (3.5-5.1); Sodium 139 mmol/L (136-145)
--- NOTE | 2024-08-24 07:38 | PC.NURSE ---
Pt. is alert and orientated x 4 Pt. on room air. Pt. has a left nare NG tube to drainage bag. Pt. had an episode of nausea last night received one dose of Zofran with good relief. Pt. c/o some discomfort to left nare where NGT inserted. Pt. denies abdominal pain. no BM in several days but is passing gas. IVF infusing. Pt. slept on and off this shift. VSS. Personal items and call desai in reach.
[2024-08-24 08:00] VITALS: BP 145/71; PULSE 79; RESP 17; TEMP 36.6; O2SAT 92
[2024-08-24] MEDS: ATENOLOL 25MG TABLET 25 MG PO (08:12)
[2024-08-24] MEDS: CEFTRIAXONE 1 GM 1 GM in 0.9 % SODIUM CHLORIDE 50 ML IV (08:12)
[2024-08-24] MEDS: DULOXETINE 30MG CAPSULE.DR 60 MG PO (08:29)
--- NOTE | 2024-08-24 08:37 | P.PN_ITS ---
Subjective Narrative: Patient had some nausea yesterday. She feels much better today. Passing gas. Acute abdominal series unremarkable. Tolerated NG tube to gravity. She states that if this ever happens again she does not want an NG tube. She asked me if there is anything that can be done to help prevent this in the future. Exam Data for Last 24 hours Vital signs and Labs for Last 24 Hours: Temp Pulse Resp BP Pulse Ox O2 Del Method 97.9 F 79 17 145/71 H 92 L Room Air 08/24/24 08:00 08/24/24 08:00 08/24/24 08:00 08/24/24 08:00 08/24/24 08:00 08/24/24 08:00 Laboratory Results - last 24 hr 08/24/24 06:20: WBC 7.0, RBC 4.51, Hgb 12.8, Hct 39.3, MCV 87.1, MCH 28.4, MCHC 32.6, RDW 13.4, Plt Count 182, MPV 9.6, Neut % (Auto) 65.3, Lymph % (Auto) 24.7, [place] % (Auto) 8.7, Eos % (Auto) 1.1, Baso % (Auto) 0.1, Neut # (Auto) 4.6, Lymph # (Auto) 1.7, [place] # (Auto) 0.6, Eos # (Auto) 0.1, Baso # (Auto) 0.0, Sodium 139, Potassium 3.5, Chloride 101, Carbon Dioxide 32 H, Anion Gap 9.5, BUN 10, Creatinine 0.60, Estimated Creat Clear 76, Estimated GFR 97, Est GFR ( Amer) 118, Glucose 107 H, Calcium 8.7 I & O for Last 24 hours: Intake & Output 08/21/24 08/22/24 08/23/24 08/24/24 11:59 11:59 11:59 11:59 Intake Total 1340 / 1340 160 / 160 400 / 400 Output Total 0 / 0 0 / 0 0 / 0 Balance 1340 / 1340 160 / 160 400 / 400 Weight 218 lb 11.2 oz 217 lb 6.4 oz 217 lb 6.4 oz Microbiology Reports for the Last 24 Hours: Microbiology 08/21/24 19:36 Urine,Clean Catch Urine Culture - Final Klebsiella pneumoniae *Routine Abdominal Exam Abdominal: Present soft; Absent tenderness Progress Note: A&P Assessment and plan (1) SBO (small bowel obstruction): Status: Acute Assessment and plan: DC nasogastric tube. Start limited clear liquids. I informed her of the importance of a nasogastric tube for management of bowel obstruction either nonoperatively or surgically. I discussed possible ways to decrease this hap pening in the future and consideration may be given for low residue/fiber restricted diet. However, I also informed her that there are no definite methods to prevent possible recurrence. (2) Diabetes mellitus: Status: Acute (3) Hypertension: Status: Acute (4) Urinary tract infection: Status: Acute
--- NOTE | 2024-08-24 09:28 | PC.NURSE ---
NG d/c at 3018 per MD note
[2024-08-24 11:33] VITALS: BMI 34.1
[2024-08-24 11:52] VITALS: BP 139/72; PULSE 87; RESP 18; TEMP 36.9; O2SAT 94
[2024-08-24] MEDS: LACTATED RINGERS 1000ML 1,000 ML 50 ML IV (14:08)
--- NOTE | 2024-08-24 14:14 | PC.NURSE ---
patient had a small BM and has been tolerating a clear liquid diet well.
[2024-08-24 15:43] VITALS: BP 140/73; PULSE 83; RESP 18; TEMP 36.8; O2SAT 96
[2024-08-24 20:00] VITALS: BP 119/72; PULSE 75; RESP 16; TEMP 36.7; O2SAT 94
[2024-08-24] MEDS: GABAPENTIN 400MG CAPSULE 800 MG NG-TUBE (20:41)
[2024-08-25] VITALS: BP 165/94; PULSE 74; RESP 17; TEMP 36.4; O2SAT 91
[2024-08-25 03:49] VITALS: BP 144/73; PULSE 72; RESP 18; TEMP 36.6; O2SAT 97; BMI 33.8
--- NOTE | 2024-08-25 04:00 | PC.NURSE ---
Pt is A&Ox4. Pt Pt has tolerated fluid and antibiotic therapy well this shift. Pt denies pain however complains of mild bloating due to drinking more the previous shift. Pt bowel sounds are active in all 4 quadrants. Pt denies any other BMs but admits to gas. Pt has had no acute changes this shift to note and denies needs at this time
[2024-08-25 08:00] VITALS: BP 148/72; PULSE 74; RESP 18; TEMP 36.6; O2SAT 95
--- NOTE | 2024-08-25 08:16 | EXP.PHA.PN ---
Subjective *Date: 08/25/24 *Time: 08:16 Medical Exam Vital signs and Labs for Last 24 Hours: Vital Signs Temp Pulse Resp BP Pulse Ox O2 Del Method 08/25/24 06:49 Room Air 08/25/24 05:00 Room Air 08/25/24 03:49 97.9 F 72 18 144/73 H 97 Room Air 08/25/24 03:00 Room Air 08/25/24 01:00 Room Air 08/25/24 00:00 97.6 F 74 17 165/94 H 91 L Room Air 08/24/24 23:00 Room Air 08/24/24 21:00 Room Air 08/24/24 20:00 Room Air 08/24/24 20:00 98.0 F 75 16 119/72 94 L Room Air 08/24/24 18:33 Room Air 08/24/24 16:40 Room Air 08/24/24 15:43 98.3 F 83 18 140/73 96 Room Air 08/24/24 15:00 Room Air 08/24/24 13:00 Room Air 08/24/24 11:52 98.4 F 87 18 139/72 94 L Room Air 08/24/24 11:00 Room Air 08/24/24 09:00 Room Air Intake and Output 08/24/24 08/25/24 08/25/24 23:59 07:59 15:59 Intake Total 600 / 2200 660 / 660 Output Total 0 / 100 Balance 600 / 2100 660 / 660 Intake: Intake, Oral Amount 600 / 1500 360 / 360 Intake, Total IV Amount 300 / 300 Ceftriaxone 1 gm 1 gm In 0.9 % 50 / 50 Sodium Chloride 50 ml @ 100 mls /hr IV Q24H [facility] Rx#:[id number] Lactated Ringers 1000ML 1,000 250 / 250 ml @ 50 mls/hr IV .Q20H [facility] Rx# :[id number] Output: Output, Urine Amount 0 / 0 Other: Number of Unmeasured Voids 1 Weight 97.749 kg Patient Weight 08/25/24 23:59 Weight 97.749 kg I & O for Labs for Last 24 Hours: Intake & Output 08/22/24 08/23/24 08/24/24 08/25/24 23:59 23:59 23:59 23:59 Intake Total 1340 / 1500 160 / 560 1540 / 2200 660 / 660 Output Total 0 / 0 0 / 0 100 / 100 Balance 1340 / 1500 160 / 560 1440 / 2100 660 / 660 Weight 99.201 kg 98.611 kg 98.6 kg 97.749 kg Microbiology Reports for the Last 24 Hours: Microbiology 08/21/24 19:36 Urine,Clean Catch Urine Culture - Final Klebsiella pneumoniae The patient's infection will respond to the chosen ABx?: Yes (URINE CX = KLEBSIELLA PNEUMONIAE SENS. TO ROCEPHIN, AFEBRILE OVER 24 HR) Is the patient receiving the right drug, dose, and route?: Yes Could a more targeted ABx be ordered?: No How long ABx needed (days)?: 7
--- NOTE | 2024-08-25 08:24 | P.PN_ITS ---
Subjective *Date: 08/25/24 *Time: 08:57 Interval history: Patient is feeling better today. She is able to tolerate clear liquids. She denies any abdominal pain, nausea, or vomiting. She has had a bowel movement. Medical Exam Vital signs and Labs for Last 24 Hours: Vital Signs Temp Pulse Resp BP Pulse Ox O2 Del Method 08/25/24 06:49 Room Air 08/25/24 05:00 Room Air 08/25/24 03:49 97.9 F 72 18 144/73 H 97 Room Air 08/25/24 03:00 Room Air 08/25/24 01:00 Room Air 08/25/24 00:00 97.6 F 74 17 165/94 H 91 L Room Air 08/24/24 23:00 Room Air 08/24/24 21:00 Room Air 08/24/24 20:00 Room Air 08/24/24 20:00 98.0 F 75 16 119/72 94 L Room Air 08/24/24 18:33 Room Air 08/24/24 16:40 Room Air 08/24/24 15:43 98.3 F 83 18 140/73 96 Room Air 08/24/24 15:00 Room Air 08/24/24 13:00 Room Air 08/24/24 11:52 98.4 F 87 18 139/72 94 L Room Air 08/24/24 11:00 Room Air 08/24/24 09:00 Room Air Intake and Output 08/24/24 08/25/24 08/25/24 19:59 03:59 11:59 Intake Total 1140 / 1800 660 / 1800 Output Total 0 / 0 Balance 1140 / 1800 660 / 1800 Intake: Intake, Oral Amount 1140 / 1500 360 / 1500 Intake, Total IV Amount 300 / 300 Ceftriaxone 1 gm 1 gm In 0.9 % 50 / 50 Sodium Chloride 50 ml @ 100 mls /hr IV Q24H [facility] Rx#:[id number] Lactated Ringers 1000ML 1,000 250 / 250 ml @ 50 mls/hr IV .Q20H [facility] Rx# :[id number] Output: Output, Urine Amount 0 / 0 Other: Number of Unmeasured Voids 1 Number of Bowel Movements 1 Weight 215 lb 8 oz Patient Weight 08/25/24 11:59 Weight 215 lb 8 oz I & O for Labs for Last 24 Hours: Intake & Output 0308/23/24 08/24/24 08/25/24 11:59 11:59 11:59 11:59 Intake Total 1340 / 1340 160 / 160 400 / 400 1800 / 1800 Output Total 0 / 0 0 / 0 100 / 100 0 / 0 Balance 1340 / 1340 160 / 160 300 / 300 1800 / 1800 Weight 218 lb 11.2 oz 217 lb 6.4 oz 217 lb 6.012 oz 215 lb 8 oz Microbiology Reports for the Last 24 Hours: Microbiology 08/21/24 19:36 Urine,Clean Catch Urine Culture - Final Klebsiella pneumoniae Constitutional: Present no acute distress Respiratory: Present CTA bilaterally Cardiac: Present Reg Rate and Rhythm GI: Present soft; Absent distention or tenderness Comments:: NG tube in place Extremities: Absent edema Skin: Present intact Neuro: Present alert, awake and oriented x 3 Assessment and Plan *Assessment and plan (1) SBO (small bowel obstruction): Status: Acute Category: Medical Code(s): K56.609 - Unspecified intestinal obstruction, unspecified as to partial versus complete obstruction (2) Diabetes mellitus: Status: Acute Qualifiers: Diabetes mellitus complication status: without complication Diabetes mellitus custodial insulin use: unspecified custodial insulin use status Diabetes mellitus type: type 2 Qualified Code(s): E11.9 - Type 2 diabetes mellitus without complications Category: Medical Code(s): E11.9 - Type 2 diabetes mellitus without complications (3) Hypertension: Status: Acute Qualifiers: Hypertension type: primary hypertension Qualified Code(s): I10 - Essential (primary) hypertension Category: Medical Code(s): I10 - Essential (primary) hypertension (4) Urinary tract infection: Status: Acute Category: Medical Code(s): N39.0 - Urinary tract infection, site not specified Plan Patient is improving. Will discuss advancing diet for lunch with Dr. Garrido. She can likely discharge soon. Dr. Garrido entry - Saw patient, agree with above note.
[2024-08-25] MEDS: CEFTRIAXONE 1 GM 1 GM in 0.9 % SODIUM CHLORIDE 50 ML IV (08:36)
[2024-08-25] MEDS: DULOXETINE 30MG CAPSULE.DR 60 MG PO (08:36)
[2024-08-25] MEDS: ATENOLOL 25MG TABLET 25 MG PO (08:37)
--- NOTE | 2024-08-28 13:21 | SW/DCPLANNER ---
Spoke with patient on the phone. Patient stated that she is doing much better. Patient stated that she is sticking to her soft diet. Patient stated that she is aware of her upcoming appointments. Patient stated that she has no concerns or questions at this time.Patient stated that she wasnt prescribed no new medicine. Kelly Menchaca
--- NOTE | 2024-08-28 16:18 | EXP.DC.SUM ---
General Admission date:: 08/21/24 Discharge date: 08/25/24 HPI HPI HPI: Ms. Harding is a 74-year-old female with a history of hypertension, hyperlipidemia, insomnia, asthma, left breast cancer, right breast cancer, pulmonary embolism, incisional hernia repair, idiopathic neuropathy, back pain chronic with stimulator in place, and diabetes mellitus,. She is noted to have previously undergone total abdominal hysterectomy via midline laparotomy in 2004 and previous ventral hernias requiring repair. She had developed a bowel obstruction secondary to apparent hernia in 2009 requiring surgical intervention and prolonged hospital stay at the [facility]. In September 2023 she developed sharp low abdominal pain and presented to the emergency room at which time CT scan revealed long segment of small bowel with tapering at the mid you Taylor in the left lower quadrant. She was managed as an inpatient for bowel obstruction at that time nonoperatively and did have a small bowel follow-through which revealed probable ileus. The patient presented again to the emergency room 08/21/2024 with severe abdominal pain which she describes as coming in waves. She did develop nausea and had some vomiting. She had had a normal bowel movement yesterday in the AM. Prior to this pain event she had been doing well and in the a.m. actually ate breakfast without difficulties. With evaluation in the emergency room she had a CT scan which revealed findings of compatible with high-grade distal small bowel obstruction with mesenteric edema and an abrupt transition at the level of the small bowel anastomosis in the left mid abdomen with fecalization of the dilated segment adjacent to the anastomosis. Dr. Love was consulted. She had an NG tube placed and decision was to admit her for ongoing care and evaluation. WBC was noted to be elevated at 11,000. Liver function studies showed mildly elevated elevated AST at 43. Urine showed positive nitrates with 4+ bacteria. She was given promethazine, IV fluid boluses, ketorolac, and Zofran. This a.m. patient is feeling better. She said the abdominal pain has subsided. NG tube remains in place to low wall suction. She has been seen by Dr. Love, surgery,Who plans for nonoperative management for now. She remains NPO. Hospital Course Hospital Course Hospital Course: Patient was followed by Dr. Love/surgeon after admission. After NG tube insertion abdominal distention was less. This also relieved her pain. She was also noted to have a urinary tract infection and was started on Rocephin. KUB improved. She began to pass gas. She tolerated NG tube to gravity and this was removed. On 08/25/2024 she was tolerating clear liquids. She denied any abdominal pain nausea or vomiting. Her bowels did move. She was afebrile. She was discharged on this date with follow-up with Dr. Garrido on 09/07/2024. Urine culture did reveal Klebsiella pneumoniae with a colony count of greater than 100,000. It was sensitive to the Rocephin which patient had been on. Exam Data for Last 24 hours Vital signs and Labs for Last 24 Hours: Temp Pulse Resp BP Pulse Ox O2 Del Method 98 F 74 18 148/72 H 95 Room Air 08/25/24 08:00 08/25/24 08:00 08/25/24 08:00 08/25/24 08:00 08/25/24 08:00 08/25/24 09:00 Narrative: Physical exam 08/25/2024 on day of discharge: Constitutional: Present no acute distress Respiratory: Present CTA bilaterally Cardiac: Present Reg Rate and Rhythm GI: Present soft; Absent distention or tenderness Comments:: NG tube in place Extremities: Absent edema Skin: Present intact Neuro: Present alert, awake and oriented x 3 Results Data Completed and Pending Completed studies during hospitalization [Text1]: 08/21/2024 chest/abdominal x-rays: FINDINGS: Tubes, catheters and devices: Generator pack over the left iliac bone with intra spinal stimulator leads extending to the mid thoracic canal redemonstrated. Lungs: Normal. No consolidation. Pleural spaces: Normal. No pleural effusions. No pneumothorax. Heart/Mediastinum: Normal. No cardiomegaly. Gastrointestinal tract: Normal. No bowel dilation. Intraperitoneal space: Normal. No free air. Bones/joints: Normal. No acute fracture. Soft tissues: Normal. IMPRESSION: No acute findings. 08/21/2024 abdominal/pelvis CT: IMPRESSION: 1. Findings compatible with high-grade distal small bowel obstruction. Mesenteric edema is noted involving some left mid abdomen small bowel loops suggesting the possibility that this might reflect a developing complicated small bowel obstruction potentially related to an internal hernia although a definite internal hernia is difficult to identify. 2. Abrupt transition at the level of the small bowel anastomosis in the left mid abdomen with associated fecalization of the dilated segment adjacent to the anastomosis suggesting the anastomosis may be the location of the small bowel obstruction transition zone and potentially the etiology of the obstruction. 08/24/2024 chest/abdominal x-rays: FINDINGS: A PA view of the chest was obtained. The cardiac and mediastinal silhouettes are within normal limits. The lungs are clear. There is no free air beneath the diaphragm. There are stimulator leads present overlying the thoracic spine. Upright and supine views of the abdomen reveal a normal bowel gas pattern. There is no evidence of small bowel obstruction. There are no pathologic calcifications. There is 35 degrees of lumbar dextroscoliosis present. IMPRESSION: No acute intrathoracic or intraabdominal abnormality. DS: Diagnosis Discharge Diagnosis (1) SBO (small bowel obstruction): Status: Acute Code(s): K56.609 - Unspecified intestinal obstruction, unspecified as to partial versus complete obstruction (2) Diabetes mellitus: Status: Acute Code(s): E11.9 - Type 2 diabetes mellitus without complications Qualifiers: Diabetes mellitus type: type 2 Diabetes mellitus assisted insulin use: unspecified assisted insulin use status Diabetes mellitus complication status: without complication Qualified Code(s): E11.9 - Type 2 diabetes mellitus without complications (3) Hypertension: Status: Acute Code(s): I10 - Essential (primary) hypertension Qualifiers: Hypertension type: primary hypertension Qualified Code(s): I10 - Essential (primary) hypertension (4) Urinary tract infection: Status: Acute Code(s): N39.0 - Urinary tract infection, site not specified Meds Home Medications and Allergies Home Medications ?Medication ?Instructions ?Recorded ?Confirmed ?Type atenolol 25 mg tablet 25 mg PO DAILY 90 days #90 tabs 07/04/18 08/21/24 History lansoprazole 30 mg capsule,delayed 30 mg PO DAILY 90 days #90 caps 07/04/18 08/21/24 History release simvastatin 20 mg tablet 20 mg PO HS 90 days #90 tabs 07/04/18 08/21/24 History gabapentin 800 mg tablet 800 mg PO 1900,2200 Neuropathy 12/30/20 08/22/24 History lisinopril 10 1 tab PO DAILY 10/12.5MG 12/30/20 08/21/24 History mg-hydrochlorothiazide 12.5 mg tablet duloxetine 60 mg capsule,delayed 60 mg PO DAILY 10/05/23 08/21/24 History release albuterol sulfate 90 mcg/actuation 90 mcg inhalation NEEDED PRN 08/03/24 08/21/24 History aerosol inhaler Asthma calcium 100 mg capsule 100 mg PO DAILY 08/21/24 08/21/24 History New Prescriptions to Start Prescriptions: Allergies Allergy/AdvReac Type Severity Reaction Status Date / Time No Known Allergies Allergy Verified 08/21/24 18:28 Discharge Plan Disposition Patient Disposition: Home, Self-Care Condition: Fair Discharge Order Discharge Orders: Discharge Order (Routine); Ordered 08/25/24 Ordered By: Jose Manuel Garrido Follow up Plan Follow up with: Jose Manuel Garrido MD [Primary Care Provider] - 09/07/24 9:45 am Prescriptions/Medication Reconciliation: Continued atenolol 25 mg tablet 25 mg PO DAILY 90 Days Qty: 90 simvastatin 20 mg tablet 20 mg PO HS 90 Days Qty: 90 lansoprazole 30 mg capsule,delayed release(DR/EC) 30 mg PO DAILY 90 Days Qty: 90 albuterol sulfate 90 mcg/actuation HFA aerosol inhaler 90 mcg inhalation NEEDED PRN (Reason: Asthma) lisinopril-hydrochlorothiazide 1 EACH tablet 1 tab PO DAILY gabapentin 800 MG tablet 800 mg PO 1900,2200 calcium 100 mg Capsule 100 mg PO DAILY duloxetine 60 mg capsule,delayed release(DR/EC) 60 mg PO DAILY Problem Reconciliation Problems Reviewed?: Yes Patient Discharge Instructions ACTIVITY: Continue current activity DIET: continue same diet Patient Instructions: DI for Small Bowel Obstruction, DI for Urinary Tract Infection (UTI) Print Language: [place] Providers Primary Care Provider: Jose Manuel Garrido Admit Provider: Rachel Powell Attending Provider: Jose Manuel Garrido
--- OUTSIDE RECORDS SUMMARY | 2024-09-21 11:16 | XMS_ITS ---
Author Organization Unknown TREATMENT PLAN Planned Care Start Date Provider Encounter for Check-up [id number] [facility]
== END 2024-08-25 10:15 | disposition home or self-care (01) | DRG 389 ==
LOC: ER 21:28 → 2ND 21:56
PROVIDERS: Physician Assistant; Admitting Provider Family Medicine; Emergency Provider Emergency Medicine; PCP Family Medicine; Visit Provider Family Medicine
DX: K56.609 Unspecified intestinal obstruction, unspecified as to partial versus complete obstruction (principal); N39.0 Urinary tract infection, site not specified; Z16.11 Resistance to penicillins; E11.9 Type 2 diabetes mellitus without complications; I10 Essential (primary) hypertension; G47.33 Obstructive sleep apnea (adult) (pediatric); G60.9 Hereditary and idiopathic neuropathy, unspecified; E78.5 Hyperlipidemia, unspecified; R11.2 Nausea with vomiting, unspecified; J45.909 Unspecified asthma, uncomplicated; E66.9 Obesity, unspecified; R60.0 Localized edema; B96.1 Klebsiella pneumoniae [K. pneumoniae] as the cause of diseases classified elsewhere; Z85.3 Personal history of malignant neoplasm of breast; Z86.711 Personal history of pulmonary embolism; Z96.82 Presence of neurostimulator; Z87.891 Personal history of nicotine dependence; Z79.899 Other long term (current) drug therapy; Z90.710 Acquired absence of both cervix and uterus; Z87.760 Personal history of (corrected) congenital diaphragmatic hernia or other congenital diaphragm malformations; Z83.3 Family history of diabetes mellitus; Z68.33 Body mass index [BMI] 33.0-33.9, adult
CPT/HCPCS: 36415; 74018; 74021; 74177; 80048; 80053; 81001; 83690; 84145; 85025; 87086; 87088; 87186; 99291; J0131; J0696; J1885; J2270; J2405; J2550; J7030; J7120; Q0162; Q9967

== ENCOUNTER 2024-11-02 12:43 | Outpatient (CLI) | payer MEDICARE, BC, SELFPAY | END 2024-11-02 23:59 | disposition home or self-care (01) | LOC: RT 12:44 | PROVIDERS: PCP Family Medicine; Visit Provider Internal Medicine Pulmonary Disease | DX: R06.02 Shortness of breath (principal) | CPT/HCPCS: 94618 ==